=== PATIENT | female | born 1985 | race Caucasian/White ===

== ENCOUNTER 2022-02-04 17:46 | Emergency (ER) | payer OTHER, SELFPAY ==
[2022-02-04 17:55] VITALS: BP 113/68; PULSE 80; RESP 20; TEMP 37.3; O2SAT 98; BMI 24.7
--- NOTE | 2022-02-04 18:16 | EXP.UTC ---
Discharge Plan Disposition Patient Disposition: Home, Self-Care Condition: Good Prescriptions Prescriptions: New methylprednisolone [Medrol (Lamin)] 4 mg tablets,dose pack See Rx Instructions .Route .COMPLEX 6 Days Qty: 21 0RF Rx Instructions: taper pack; amoxicillin-pot clavulanate 875-125 mg Tablet 1 tab PO Q12H Qty: 20 0RF fluticasone propionate [Flonase Allergy Relief] 50 mcg/actuation spray,suspension 1 spray intranasal DAILY Qty: 16 0RF Rx Instructions: administer into each nostril Referrals Follow up/Referrals: Kingston Montiel [Primary Care Provider] - See instructions Activity Restrictions/Add. Instructions Additional Instructions/Restrictions: *Monitor Temp, Over the counter Motrin or Tylenol as directed/as needed Tylenol every 4 hours and Motrin every 6 hours (as long as your family doctor has told you that you can take it) for fever or pain. and straight to ER if unable to lower temp less than 101.0 after medication given *Warm salt water gargles may help to soothe the throat *Throat Lozenges? *Warm fluids like tea with honey may help to soothe the throat? *Sleep elevated *Humidifier/Vaporizer Follow up IMMEDIATELY for new or worsening symptoms or no Noticeable improvement over the next 48-72 hours. 911 for difficulty breathing or swallowing Clinical Impressions Clinical Impression: Sinusitis Instructions Patient Instructions: DI for Sinusitis, Sinusitis Discharge ED Provider: Alexa Feldman [facility] General Stated complaint: daniel, poss sinus inf Mode of Arrival: Ambulatory Source of Information: Patient Limitations: No Limitations Time Seen by Provider: 02/04/22 18:16 Description of Symptoms (Recalled from Triage Doc. by RN): PATIENT C/O SINUS PRESSURE, RUNNY NOSE, WATERY EYES, AND SNEEZING X 3 WEEKS HEENT Symptoms (Recalled from RN notes): Yes Resp Symptoms (Recalled from RN notes): No Skin Symptoms (Recalled from RN notes): No MS Symptoms (Recalled from RN notes): No Functional Status (Recalled from RN notes): WNL History of Present Illness Provider Complaint: Patient states that she has been fighting this for about 3 weeks States that she thought it was allergies States that she has been having sinus pain and pressure, pressure behind her eyes, sneezing and watery Eyes States that she has been taking her allergy medication and sudafed but nothing is helping States that now pressure behind her eyes is worse so today she came in to get checked out Related Data Previous Rx's Medication Instructions Recorded amoxicillin 875 mg-potassium 1 tab PO Q12H #20 tabs 02/04/22 clavulanate 125 mg tablet fluticasone propionate 50 1 spray intranasal DAILY #16 grams 02/04/22 mcg/actuation nasal spray,suspension (Flonase Allergy Relief) methylprednisolone 4 mg tablets in See Rx Instructions .Route 02/04/22 a dose pack (Medrol (Lamin)) .COMPLEX 6 days #21 tabs Allergies Allergy/AdvReac Type Severity Reaction Status Date / Time No Known Allergies Allergy Verified 02/04/22 18:12 Worker's Comp Is this a Worker's Comp case?: No PFSH PFSH Surgical History (Updated 02/04/22 @ 18:11 by Angela Reed RN) History of section History of tonsillectomy History of tubal ligation Social History (Updated 02/04/22 @ 18:12 by Angela Reed RN) Smoking Status: Never smoker alcohol intake: never current occupational status: other Travel in the last 8 weeks: None ROS Obtained: Yes All systems reviewed & no additional complaints except as documented and Yes Systems reviewed as appropriate & no additional complaints except as documented Constitutional Constitutional: Reports system reviewed and no additional complaints, except as documented and Reports as per HPI Eyes Eyes: Reports system reviewed and no additional complaints, except as documented, Reports as per HPI and Reports eye discharge ENT Ears, Nose, Mouth, and Thr
[2022-02-04 18:37] VITALS: BP 113/68; PULSE 80; RESP 20; TEMP 37.3; O2SAT 98
== END 2022-02-04 18:38 | disposition home or self-care (01) ==
PROVIDERS: Emergency Provider Nurse Practitioner; PCP Internal Medicine
DX: J32.9 Chronic sinusitis, unspecified (principal)
CPT/HCPCS: 99212; G0463

== ENCOUNTER 2022-05-01 09:32 | Emergency (ER) | payer OTHER, SELFPAY ==
--- NOTE | 2022-05-01 11:03 | EXP.UTC ---
Discharge Plan Disposition Patient Disposition: Home, Self-Care Condition: Good Prescriptions Prescriptions: New benzonatate [benzonatate] 100 mg capsule 100 mg PO TIDP PRN (Reason: Cough) Qty: 30 0RF oseltamivir [Tamiflu] 75 mg capsule 75 mg PO BID Qty: 10 0RF ondansetron 4 mg Tablet,Disintegrating 4 mg PO Q8H PRN (Reason: Nausea) Qty: 12 0RF No Action methylprednisolone [Medrol (Lamin)] 4 mg tablets,dose pack See Rx Instructions .Route .COMPLEX 6 Days Qty: 21 0RF Rx Instructions: taper pack; amoxicillin-pot clavulanate 875-125 mg Tablet 1 tab PO Q12H Qty: 20 0RF fluticasone propionate [Flonase Allergy Relief] 50 mcg/actuation spray,suspension 1 spray intranasal DAILY Qty: 16 0RF Rx Instructions: administer into each nostril Referrals Follow up/Referrals: Kingston Montiel [Primary Care Provider] - See instructions Activity Restrictions/Add. Instructions Additional Instructions/Restrictions: Drink plenty of fluids. Take tylenol or ibuprofen for pain or fever. Take the medications as directed. Follow up with your regular doctor. GO TO THE ER FOR ANY WORSENING SYMPTOMS Clinical Impressions Clinical Impression: Influenza A Instructions Patient Instructions: DI for Influenza -- Adult, Oseltamivir Discharge ED Provider: Clem Vasquez [facility] General Stated complaint: body aches cough nausea Time Seen by Provider: 05/01/22 11:03 History of Present Illness Provider Complaint: She states that she has had fever, chills, body aches and she has felt bad for the past 2 days. Related Data Previous Rx's Medication Instructions Recorded amoxicillin 875 mg-potassium 1 tab PO Q12H #20 tabs 02/04/22 clavulanate 125 mg tablet fluticasone propionate 50 1 spray intranasal DAILY #16 grams 02/04/22 mcg/actuation nasal spray,suspension (Flonase Allergy Relief) methylprednisolone 4 mg tablets in See Rx Instructions .Route 02/04/22 a dose pack (Medrol (Lamin)) .COMPLEX 6 days #21 tabs benzonatate 100 mg capsule 100 mg PO TIDP PRN Cough #30 caps 05/01/22 ondansetron 4 mg disintegrating 4 mg PO Q8H PRN Nausea #12 tabs 05/01/22 tablet oseltamivir 75 mg capsule (Tamiflu) 75 mg PO BID #10 caps 05/01/22 Allergies Allergy/AdvReac Type Severity Reaction Status Date / Time No Known Allergies Allergy Verified 05/01/22 11:24 [facility] Disclaimer: The information contained in this section may have been updated after the patient was seen, as this information can be updated by other users. Surgical History History of section History of tonsillectomy History of tubal ligation Social History Smoking Status: Never smoker alcohol intake: never current occupational status: other Travel in the last 8 weeks: None ROS Obtained: Yes All systems reviewed & no additional complaints except as documented Constitutional Constitutional: Reports chills and Reports fever(s) Eyes Eyes: Denies eye discharge ENT Ears, Nose, Mouth, and Throat: Reports as per HPI Cardiovascular Cardiovascular: Denies chest pain Respiratory Respiratory: Denies chest congestion and Reports cough Gastrointestinal Gastrointestingal: Reports nausea; Denies abdominal pain, constipation, cramping, diarrhea or vomiting Musculoskeletal Musculoskeletal: Denies arthralgias Integumentary/Breasts Skin/Breast: Denies rash Neurologic Neurologic: Denies paresthesias Physical Exam General General appearance: alert and in no apparent distress Head Head exam: atraumatic, normocephalic and normal inspection Eye Eye exam: Present normal appearance, PERRL and EOMI ENT ENT exam: Present normal exam, normal oropharynx, mucous membranes moist, TM's normal bilaterally and normal external ear exam Neck Neck exam: Present normal inspection, full ROM and trachea midline; Absent meningis
[2022-05-01 11:14] LABS: UTC Influenza A Antigen Positive (Negative); UTC Influenza B Antigen Negative (Negative); UTC Strep Screen (Rapid) Negative (Negative)
[2022-05-01 11:18] VITALS: BP 98/65; PULSE 113; RESP 16; TEMP 37.9; O2SAT 99; BMI 24.2
[2022-05-01 11:53] VITALS: BP 98/65; PULSE 113; RESP 16; TEMP 37.9
== END 2022-05-01 11:56 | disposition home or self-care (01) ==
PROVIDERS: Emergency Provider Nurse Practitioner Family; PCP Internal Medicine
DX: J10.1 Influenza due to other identified influenza virus with other respiratory manifestations (principal); R50.9 Fever, unspecified; R05.9 Cough, unspecified; M79.10 Myalgia, unspecified site; R11.0 Nausea; Z79.51 Long term (current) use of inhaled steroids; Z79.52 Long term (current) use of systemic steroids; Z79.899 Other long term (current) drug therapy
CPT/HCPCS: 87804; 87880; 99213; G0463

== ENCOUNTER 2022-10-19 17:42 | Emergency (ER) | payer OTHER, SELFPAY ==
[2022-10-19 18:40] VITALS: BP 133/68; PULSE 99; RESP 18; TEMP 36.9; O2SAT 100; BMI 23.2
--- NOTE | 2022-10-19 19:10 | EXP.UTC ---
Discharge Plan Disposition Patient Disposition: Home, Self-Care Condition: Good Prescriptions Prescriptions: New triamcinolone acetonide 0.1 % ointment 1 applic topical TID Qty: 30 0RF Rx Instructions: apply to rash on ankle as directed No Action folic acid 1 mg tablet 2 mg PO DAILY Label Comments: TAKE 2 TABLETS BY MOUTH ONCE DAILY metformin 500 mg tablet extended release 24 hr 1,500 mg PO DAILY Label Comments: TAKE 3 TABLETS BY MOUTH ONCE DAILY WITH EVENING MEAL Referrals Follow up/Referrals: Kingston Montiel [Primary Care Provider] - See instructions Activity Restrictions/Add. Instructions Additional Instructions/Restrictions: Oatmeal baths may help with itching and to dry the rash Over the counter Calamine lotion may help to dry the rash Benadryl may help with itching Use topical steriod as prescribed Clinical Impressions Clinical Impression: Poison [place]y dermatitis Instructions Patient Instructions: Summertime Rashes: Poison [place], [place], and [place], Poison [place], Poison [place], Poison [place], DI for Poison [place] Allergy Discharge ED Provider: Alexa Feldman [facility] HPI General Stated complaint: rash Mode of Arrival: Ambulatory Source of Information: Patient Limitations: No Limitations Time Seen by Provider: 10/19/22 19:10 Description of Symptoms (Recalled from Triage Doc. by RN): PATIENT C/O ITCHY, RAISED RASH TO LATERAL LEFT ANKLE SINCE TUESDAY HEENT Symptoms (Recalled from RN notes): No Resp Symptoms (Recalled from RN notes): No Skin Symptoms (Recalled from RN notes): Yes MS Symptoms (Recalled from RN notes): No Functional Status (Recalled from RN notes): WNL History of Present Illness Provider Complaint: Patient states that she was pulling some weeds last week and over the weekend she noticed a rash on her left ankle that looked fluid filled and itchy States that she wasnt sure what it may be but it hasnt got any better so today she came in to get it checked out Related Data Home Medications Medication Instructions Recorded Confirmed folic acid 1 mg tablet 2 mg PO DAILY Supplement 10/19/22 10/19/22 metformin 500 mg tablet,extended 1,500 mg PO DAILY . 10/19/22 10/19/22 release 24 hr Previous Rx's Medication Instructions Recorded triamcinolone acetonide 0.1 % 1 applic topical TID #30 grams 10/19/22 topical ointment Allergies Allergy/AdvReac Type Severity Reaction Status Date / Time No Known Allergies Allergy Verified 05/01/22 11:24 Worker's Comp Is this a Worker's Comp case?: No [facility] Disclaimer: The information contained in this section may have been updated after the patient was seen, as this information can be updated by other users. Surgical History History of section History of tonsillectomy History of tubal ligation Social History Smoking Status: Never smoker alcohol intake: never current occupational status: other Travel in the last 8 weeks: None ROS Obtained: Yes All systems reviewed & no additional complaints except as documented and Yes Systems reviewed as appropriate & no additional complaints except as documented Constitutional Constitutional: Reports system reviewed and no additional complaints, except as documented and Reports as per HPI ENT Ears, Nose, Mouth, and Throat: Reports system reviewed and no additional complaints, except as documented and Reports as per HPI Cardiovascular Cardiovascular: Reports system reviewed and no additional complaints, except as documented and Reports as per HPI Respiratory Respiratory: Reports system reviewed and no additional complaints, except as documented and Reports as per HPI Gastrointestinal Gastrointestingal: Reports system reviewed and no additional complaints, except as documented and as per HPI Musculoskeletal Musculoskeletal: Reports system reviewed and no addition
[2022-10-19 19:20] VITALS: BP 133/68; PULSE 99; RESP 18; TEMP 36.9; O2SAT 100
== END 2022-10-19 19:25 | disposition home or self-care (01) ==
PROVIDERS: Emergency Provider Nurse Practitioner; PCP Internal Medicine
DX: L23.7 Allergic contact dermatitis due to plants, except food (principal); W60.XXXA Contact with nonvenomous plant thorns and spines and sharp leaves, initial encounter
CPT/HCPCS: 99212; 99214; G0463

== ENCOUNTER 2024-11-23 20:50 | Emergency (ER) | payer BC, SELFPAY ==
--- OUTSIDE RECORDS SUMMARY | 2024-11-23 21:04 | XMS_ITS | Continuity of Care Document ---
Author Organization [facility]. If a dditional information is needed, contact Health Information Management at [phone] [place] [address] Phone Care Team Providers Care Information Clerk [employer] Name Role Phone Unavailable Unavailable Unavailable Unavailable Unavailable Unavailable Unavailable Unavailable Unavailable Unavailable Unavailable Unavailable Problems Foot pain Onset:27-Oct-2019 [id number] Left ankle pain Onset:27-Oct-2019 [id number] Allergies and Adverse Reactions acetaminophen(Allergy) Onset: 27-Oct-2019 Reaction:hives Sulfamethoxazole(Allergy) Onset: 27-Oct-2019 Reaction:hives trimethoprim(Allergy) Onset: 27-Oct-2019 Reaction:hives tramadol(Allergy) Onset: 27-Oct-2019 Reaction:hives Social History Smoking Status Never smoked tobacco Recorded: 27-Oct-2019
[2024-11-23 21:05] VITALS: BP 127/88; PULSE 80; RESP 20; TEMP 36.9; O2SAT 100; BMI 25.8
--- OUTSIDE RECORDS SUMMARY | 2024-11-23 21:05 | XMS_ITS | Clinical Summary ---
Author Organization [employer] Address [address] [place] [address] Care Team Providers Care Tool Profiling Machine Set Up Operator Name Role Phone [facility], Provider Not In The System Primary Care Provider Unavailable Allergies No known active allergies Medications metFORMIN (GLUCOPHAGE) 500 MG tablet Take 3 tablets (1,500 mg total) by mouth daily. Active folic acid (FOLVITE) 1 MG tablet Take 2 tablets (2 mg total) by mouth daily. Active vitamin w/calcium-iron- folate ( PLUS) 27 mg iron- 1 mg Tab Take 1 tablet by mouth daily. Active Active Problems Problem Noted Date Diagnosed Date Uterine rupture during labor 01/18/2024 Previous section 01/16/2024 Dehiscence of old uterine sc ar with extension before onset of labor during third trimester of 01/16/2024 Endometriosis of pelvic peritoneum 08/05/2022 Menorrhagia 08/05/2022 Severe dysmenorrhea 08/05/2022 Pelvic pain in female 08/05/2022 Dyspareunia due to medical condition in female 0 08/05/2022 PCOS (polycystic ovarian syndrome) Endometriosis Family History Medical History Relation Name Comments Breast cancer Maternal Grandmother Cervical cancer Paternal Aunt Relation Name Status Comments Maternal Grandmother Paternal Aunt Social History Tobacco Use Types Packs/Day Years Used Date Smoking Tobacco: Never Assessed Passive Smoke Exposure: Never Smokeless Tobacco: Never Tobacco Cessation:Counseling Given: Not Answered Comments:quit 2017 Alcohol Use Standard Drinks/Week Comments Not Currently 0 (1 standard drink = 0.6 oz pur e alcohol) [place] Union Depression Scale Answer Date Recorded Union Depression Screening Total Score 4 01/17/2024 Last EPDS Self Harm Result Not on file 01/16 Utilities Answer Date Recorded In the past 12 months, has t he electric, gas, oil, or water company threatened to shut off services in your home? No 01/16/2024 Interpersonal Safety Answer Date Record ed How often does anyone, travis maki family and friends, physically hurt you? Never 01/16/2024 How often does anyone, travis maki family and friends, insult or talk down to you? Never 01/16/2024 How often does anyone, travis maki family and friends, threaten you with harm? Never 01/16/2024 How often does anyone, travis maki family and friends, scream or curse at you? Never 01/16/2024 Housing Stability Answer Date Recorded What is your living situation today? I have a [facility] place to live 01/16/[address] you li ve. Do you have problems with any of the following? None of the above 01/16/2024 Food Insecurity Answer Date Recorded Within the past 12 months, y ou worried that your food would run out before you got money to buy more. Never true 01/16/2024 Within the past 12 months, t he food you bought just didn't last and you didn't have money to get more. Never true 01/16/2024 Transportation Needs Answer Date Record ed In the past 12 months, has l ack of reliable transportation kept you from medical appointments, meetings, work or from getting things needed for daily living? No 01/16/2024 Financial Resource Strain Answer Date R ecorded How hard is it for you to pa y for the very basics like food, housing, medical care, and heating? Would you say it is: Not hard at all 01/16/2024 Employment Answer Date Recorded Do you want help finding or keeping work or a job? I do not need or want help 01/16/2024 Family and Community Support Answer Omkar e Recorded If for any reason you need h elp with day-to-day activities such as bathing, preparing meals, shopping, managing finances, etc., do you get the help you need? I don't need any help 01/16/2024 Feeling Lonely or Isolated 0 01/15 Educational Attainment Answer Date Atif rded Do you speak a language other than [place] at [facility]? No 01/16/2024 Do you want help with school or training? For example, starting or completing job training or getting a high school diploma, GED or equivalent. No 01/16/2024 Physical Activity Answer Date Recorded Number of minutes of exercise per week 0 01/16/2024 Alcohol Use Answer Date Recorded 5 or More Drinks Per Day Past 12 Months 0 04/09/2024 Depression Answer Date Recorded Calculation of above two rows 0 Stress Answer Date Recorded Stress means a situation in which a person feels tense, restless, nervous, or anxious, or is unable to sleep at night because his or her mind is troubled all the time. Do you feel this kind of stress these days? Not at all 01/16/2024 Disabilities Answer Date Recorded Because of a physical, menta l, or emotional condition, do you have serious difficulty concentrating, remembering, or making decisions? (5 years or older) No 01/16/2024 Because of a physical, menta l, or emotional condition, do you have difficulty doing errands alone such as visiting a doctor's office or shopping? (15 years or older) No 01/16/2024 Substance Use Answer Date Recorded How many times in the past y ear have you used prescription drugs for non-medical reasons? Never 01/16/2024 How many times in the past year have you used [place] legal drugs? Never 01/16/2024 Comments Unknown Sex and Gender Information Value Date Recorded Sex Assigned at Not on file Legal Sex Female 1:14 PM CDT Gender Identity Not on file Sexual Orientation Not on file Last Filed Vital Signs Vital Sign Reading Time Taken Comments Blood Pressure 110/53 01/20/2024 6:15 PM EDT Pulse 88 01/19/2024 8:00 AM EDT Temperature 36.6 C (97.8 F) 01/19/2024 8:00 AM EDT Respiratory Rate 16 01/19/2024 8:00 AM EDT Oxygen Saturation 96% 01/16/2024 8:45 PM EDT Inhaled Oxygen Concentration - - Weight 88.2 kg (194 lb 6.4 oz) 01/16/2024 4:50 P M EDT Height 167.6 cm (5' 6 ) 01/16/2024 4:50 PM EDT Body Mass Index 31.38 01/16/2024 4:50 PM EDT Plan of Treatment Health Maintenance Due Date Last Done Comments HIV Screening 12/29/2002 Hepatitis C Screening 12/29/2005 DTAP/TDAP/TD VACCINES (1 - Tdap) 12/29/2006 Lipid Panel 2007 Pap Smear 12/29/2008 COVID-19 VACCINE (3 - 2023-2 5 season) 2024 09/19/2020, 08/19/2020 Depression Screening (12+) 01/16/2025 01/17/2024 Tobacco Cessation Counseling and Screening (12+) 01/16/2025 01/17/2024 Influenza Vaccine (Season Ended) 2025 01/29/2020 Pneumococcal Vaccine: 0-49 Years Aged Out No longer eligible b ased on patient's age to complete this topic Medical Devices Implanted Type Area Drop Hammer Mechanic Device Identifier Shelf Expiration Date Model / Serial / Lot [employer] Prime 3x4 Cm [id number] - [id number] Implanted:Qty : 1 on 08/06/2022 by Aidee Acuña MD at [facility] IMPLANTS N/A: Pelvis [employer] 03/31/2024 [id number] / [id number] / [id number] Insurance [employer] BLUE [employer]OSS/BLUE [employer]IELD Advance Directives For more information, please contact: [phone] * Full Code (Latest Code Status on File) Date Activated Date Inactivated Comments 01/16/2024 3:21 PM 01/16/2024 9:45 PM * Full Code Date Activated Date Inactivated Comments 08/06/2022 6:15 AM 10/02/2022 11:50 AM * Full Code Date Activated Date Inactivated Comments 08/06/2022 5:16 AM 08/06/2022 6:15 AM Care Teams Tool Profiling Machine Set Up Operator Relationship Specialty Start Date End Date [facility], Provider Not In The System, [place] [address] PCP - General 01/16/24
--- OUTSIDE RECORDS SUMMARY | 2024-11-23 21:05 | XMS_ITS | Data Portability ---
Author Organization [facility] telehealth Address [address] [place] [address] Assessment Encounter Date Assessment Date Assessment LastModified by Organization Details LastModified Time 01/23/2024 01/23/2024 38 yo F here today for visit. WNWD female in NAD. Pt had a repeat section of a healthy baby boy (Hiram) with Dr. Acuña! Pt is and bottle feeding. She reports mood is stable, has good support from family. Denies SI / HI. Discussed control with pt, she is considering Mirena IUD, will place order for Slynd and discuss IUD at visit.Pt appears well overall on physical examination. Incisions are well healed. No erythema, drainage or separation noted along incision. Reviewed care with patient. Patient will call if there is severe vaginal bleeding, dizziness, fever and/or new or worsening abdominal pain. She will RTC for visit or PRN. Pleasant mood. [email or web address] Not available 01/23/2024 18:35:15 02/27/2024 02/27/2024 38 y/o presents for 6 week post- visit. She had a repeat of a healthy baby boy (Hiram) with Dr. Acuña. Discussed BC options. Patient is interested in IUD for BC; patient will confir with her partner and return to our office for IUD insertion. She breastfed for the first 3 weeks and has not had a period yet. Physical exam reveals galactocele on left breast. incision appears healthy. Speculum exam reveals some minor bleeding, vaginal culture collected. Silver nitrate applied for hemostasis. Breast ULS performed; cyst of left breast measuring 15.61 mm at 3 o'clock position. Removed with puncture aspiration and confirmed with ULS. [email or web address] Not available 02/27/2024 10:56:02 04/05/2024 04/05/2024 38 yo F presents for IUS insertion. Pre IUD ULS reveals a thickened endometrium. Both the ovaries are normal in size, location, and appearance. No tenderness is noted. Endometrial biopsy was done from thickened endometrium and biopsy will be sent to pathology. After having reviewed the contraindication s, side effects, and risks and benefits of all major options for reversible contraception, the patient chose the Mirena IUD for contraception. We discussed the risks of insertion, pelvic infection, and the possibility of failure. Patient stated that she has a good understanding of all we discussed, and all questions were answered regarding IUD use. Patient signed consent form. Pelvic examination was normal. Pap smear is current. Urine test negative. With the patient in the dorsal lithotomy position, a speculum was placed in the vagina. The cervix and vagina were prepped with Betadine, and a paracervical block of 2mL lidocaine 2% with epinephrine administered. The anterior lip of the cervix was stabilized with a tenaculum and the uterus was sounded adequately. The Mirena IUD was then placed in the endometrial cavity as directed without complications. The strings were trimmed to approximately to 2 cm. Hemostasis was achieved by silver nitrate. ULS revealed good placement. Patient tolerated procedure well. Pt will RTC for WWE or sooner if needed. [email or web address] Not available 04/05/2024 15:32:29 10/29/2024 10/29/2024 38 yo F presents for an annual exam. She states that she would like to be put back on Metformin. Pt states since she had her Mirena put in she doesn't have abnormal cycles, but she does have some spotting. She reports low libido, abnormal hair loss and fatigue. Pt has been dx with a multinodular goiter. Pap was collected from the cervix. Cervicitis was present and treated with silver nitrate. BV panel will also be done. It is suspected that pts symptoms could be due to DHEA and testosterone levels being low. Annual and hormone BW will be done today. Once HRT levels have been reviewed HRT dosage will be designed and sent to [facility]. She will come into the office at least 2 weeks after started HRT transdermal cream for HRT blood work. Metformin will be ordered. She will RTC for WWE or sooner if needed. [email or web address] Not available 10/29/2024 11:00:07 Plan of Treatment Reminders Order Date Submit Date Provider Last Modified By Organization Details Last Modified Time Details Appointments None recorded. Lab pap, LB 2024 025 [facility]), [address] [place] [address], [address], 5 16:12:52 HbA1c (hemoglobi n A1c), blood 2024 025 [facility] ([facility]), [address] [place] [address], [address], 5 08:17:12 CMP, serum or plasma 2024 025 [facility] ([facility]), [address] [place] [address], [address], 5 08:17:09 CBC w/ auto diff 2024 025 [facility] ([facility]), [address] [place] [address], [address], 5 08:17:08 TSH, serum or plasma 2024 025 [facility] ([facility]), [address] [place] [address], [address], 5 08:17:13 vitamin B12, serum 2024 025 [facility] ([facility]), [address] [place] [address], [address], 5 08:17:12 vitamin D, 25-hydroxy , total, serum 2024 025 [facility] [address] [place] [address], [address], 5 08:17:09 bacterial vaginosis + vaginitis panel, vaginal 2024 025 [facility]), [address] [place] [address], [address], 5 16:12:53 testostero ne, total, serum 2024 025 [facility] ([facility]), [address] [place] [address], [address], 5 08:17:10 dhea-sulfa te, serum 2024 025 [facility] ([facility]), [address] [place] [address], [address], 5 08:17:14 estradiol, serum 2024 025 [facility] ([facility]), [address] [place] [address], [address], 5 08:17:11 lh + FSH, serum 2024 025 [facility] ([facility]), [address] [place] [address], [address], 5 08:17:07 Referral None recorded. Procedures None recorded. Surgeries None recorded. Imaging None recorded. Medication Orders metformin ER 500 mg tablet,ext ended release 24 hr 2024 025 [facility], [address] [place] [address], [address], 5 11:07:57 Cipro [address] [id number], [address] [place], [address], 5 09:50:24 Slynd 4 mg (28) tablet [address] [id number], [address] [place], [address], 4 09:25:47 Patient TargetsNo targets recorded. Patient InstructionsNo instructions recorded. Reason for Referral None Reported. Results Created Date Observation Date Name Description Value Unit Range Abnormal Flag Note LastModifiedBy Organization Detail LastModifiedTime 12/30/1912/30/2023 urina lysis , dipst ick Leukocytes negati ve Not Available MD [address]aciel[address], [place], [address], 12/29/2023 12:01:11 12/30/19 24 2023 urina lysis , dipst ick Protein negati ve Not Available MD [address]iela [address], [place], [address], 12/29/2023 12:01:11 12/30/19 24 2023 urina lysis , dipst ick Blood negati ve Not Available MD [address]iela [address], [place], [address], 12/29/2023 12:01:11 12/30/19 24 2023 urina lysis , dipst ick Nitrate negati ve Not Available MD [address]aciela [address], [place], [address], 12/29/2023 12:01:11 12/30/19 24 2023 urina lysis , dipst ick Glucose negati ve Not Available MD Graciela Ramach[address]ran [address], [place], [address], 12/29/2023 12:01:11 10/30/19 25 10/31/2024 PAP TEST THIN PREP Pap test thin prep NEGATI VE FOR INTRAE PITHEL IAL LESION OR MALIGN SRAVANI normal ACCES DANISHA #: [id number] Sourc e: Cervi rufina/E ndoce rvica l LMP: Unkno wn Date Taken : 10/29 Speci men Type: ThinP rep Vial Date Repor jennifer: 025 Clini rufina Data: Cytot ech: Payton Mart r, CT( CP) Date Repor jennifer: 025 Speci men Adequ acy: Satis facto ry for evalu ation Endoc ervic al/tr ansfo rmati on zone compo nent prese nt Gener al Categ oriza tion: NEGAT SURENDRA FOR INTRA EPITH ELIAL LESIO N OR MALIG CASPER The follo wing tests have been order ed as reque sted and a separ ate repor t will be issue d: Vagin itis Panel , HPV High Risk Scree n (TMA) This speci men has been maty zed by the ThinP rep Imagi ng Syste m, an inter activ e compu ter syste m which shivam ts the lab in the scree chepe of ThinP rep Pap Test slide s. Follo wing imagi ng, the slide was revie wed by a Cytot echno logis t and/o r Patho logis t. Cervi rufina cytol ogy is a scree chepe test prima rily for squam ous cance rs and precu rsors and has assoc iated false -nega tive and false -posi tive resul ts. New techn ologi es such as liqui d-bas ed prepa ratio ns may decre ase but will not elimi zenia all false -nega tive resul ts. Regul ar sampl ing and follo w-up of unexp freddie d clini rufina signs and sympt oms are recom paulino d to minim ize false negat surendra resul ts. End of Repor t Techn ical servi jason provi ded by [facility], [facility], d/b/a [facility], [address] [place] [address] Rita Gallegos. Kimberly adames MD, [facility]. Case revie wed and diagn osis rende red at [facility], d/b/a [facility], [address] [place] [address] Rita adames MD, [facility]. CONFI DENTI AL Not Available [facility]) [address], [place], [address], 10/31/2024 16:12:52 10/30/19 25 10/31/2024 VAGIN ITIS PANEL neeta sp. NOT DETECT ED normal Trich omona s vagin di: DNA testi ng perfo rmed by Trans cript ion Media jennifer Ampli ficat ion (TMA) These resul ts shoul d be inter prete d in light of all clini rufina and labor atory findi ngs. This assay is highl y accur ate, but rare false posit surendra and negat surendra resul ts may occur . Posit surendra resul ts in low preva lence popul ation s may requi re re-ev aluat ion. A negat surendra resul t does not precl ude a possi ble infec tion due to a speci men inade quacy or sampl ing error . Test perfo rmed by [facility], d/b/a [facility], [address], [place] [address] , Cruz Guadarrama ra, DO, [facility]. Dago singh a vagin Miguel sevillai da speci es: Genom ic DNA is isola jennifer from patie nt speci mens by stand bhavesh labor atory techn iques and maty zed using custo m OpenA rray plate s, perfo rmed on the Erenisi o [employer] Flex Real Time PCR syste m. A posit surendra resul t is provi ded for patho genic bacte alice, virus and/o r funga l speci es based on detec tion of ampli ficat ion produ cts. Xenia l vagin al ronak resul ts of Xenia l or Wayne jennifer are deter mined by calcu latin g the ratio of the organ ism to the total bacte alice prese nt in the speci men, and kimo ring that ratio to a PathG roup patie nt popul ation . Overa ll resul ts of Xenia l, Borde rline and Abnor mal are deter mined using a proba bilit y model which was devel oped by an exten sive maty sis and integ ratio n of clini rufina thres holds for marke r organ isms on a large set of sympt omati c & asymp tomat ic speci mens. Patie nt popul ation s with diffe rent demog raphi cs from the PathG roup model popul ation may have diffe rent indic ator organ isms with diffe rent relat surendra ratio s, which would influ ence the final resul ts. Resul ts shoul d be inter prete d in the kim xt of all clini rufina and labor atory findi ngs. The test was devel oped and its perfo rmanc e franklin cteri stics deter mined by [employer] [facility], [employer] d/b/a PathRashaun roubettina. It has not been clear ed or appro chandler by the U.S. Food and Drug Admin istra tion. The FDA has deter mined that such clear ance or appro debbie is not neces nicola. Perti nent refer ence inter vals are avail able from the [facility] atory on reque st. Test( s) perfo rmed by [employer] [facility], d/b/a [facility], [address], [place] [address] , Cruz Guadarrama ra, DO, Labor atory Direc tor. Not Available [facility] ([facility]) [address], [place], [address], 10/31/2024 16:12:53 10/30/19 25 10/31/2024 VAGIN ITIS PANEL gardnerella vaginalis NOT DETECT ED normal Trich omona s vagin di: DNA testi ng perfo rmed by Trans cript ion Media jennifer Ampli ficat ion (TMA) These resul ts shoul d be inter prete d in light of all clini rufina and labor atory findi ngs. This assay is highl y accur ate, but rare false posit surendra and negat surendra resul ts may occur . Posit surendra resul ts in low preva lence popul ation s may requi re re-ev aluat ion. A negat surendra resul t does not precl ude a possi ble infec tion due to a speci men inade quacy or sampl ing error . Test perfo rmed by [facility], d/b/a [facility], [address], [place] [address] , Cruz Guadarrama ra, DO, Labor atory Direc tor. Gardn erell a vagin di, Ольга da speci es: Genom ic DNA is isola jennifer from patie nt speci mens by stand bhavesh labor atory techn iques and maty zed using custo m OpenA rray plate s, perfo rmed on the Quant [employer]i o 12K Flex Real Time PCR syste m. A posit surendra resul t is provi ded for patho genic bacte alice, virus and/o r funga l speci es based on detec tion of ampli ficat ion produ cts. Xenia l vagin al ronak resul ts of Xenia l or Wayne jennifer are deter mined by calcu latin g the ratio of the organ ism to the total bacte alice prese nt in the speci men, and kimo ring that ratio to a PathG roup patie nt popul ation . Overa ll resul ts of Xenia l, Borde rline and Abnor mal are deter mined using a proba bilit y model which was devel oped by an exten sive maty sis and integ ratio n of clini rufina thres holds for marke r organ isms on a large set of sympt omati c & asymp tomat ic speci mens. Patie nt popul ation s with diffe rent demog raphi cs from the Path rou model popul ation may have diffe rent indic ator organ isms with diffe rent relat surendra ratio s, which would influ ence the final resul ts. Resul ts shoul d be inter prete d in the kim xt of all clini rufina and labor atory findi ngs. The test was devel oped and its perfo rmanc e franklin cteri stics deter mined by [employer] [facility] logis [employer], [employer] d/b/a [employer]. It has not been clear ed or appro chandler by the U.S. Food and Drug Admin istra tion. The FDA has deter mined that such clear ance or appro debbie is not neces nicola. Perti nent refer ence inter vals are avail able from the [facility] ator on reque st. Test( s) perfo rmed by [employer] [facility] logis [employer], [employer], [facility]/b/a [facility], [address] [place] [address] , Cruz Guadarrama ra, DO, Labor ator Dire tor. Not Available [facility] ([facility]) [address], [place], [address], 10/31/2024 16:12:53 10/30/19 25 10/31/2024 VAGIN ITIS PANEL trichomonas vaginalis, aptima (panther) NOT DETECT ED normal Trich omona s vagin di: DNA testi ng perfo rmed by Trans cript ion Media jennifer Ampli ficat ion (TMA) These resul ts shoul d be inter prete d in light of all clini rufina and labor atory findi ngs. This assay is highl y accur ate, but rare false posit surendra and negat surendra resul ts may occur . Posit surendra resul ts in low preva lence popul ation s may requi re re-ev aluat ion. A negat surendra resul t does not precl ude a possi ble infec tion due to a speci men inade quacy or sampl ing error . Test perfo rmed by [facility], d/b/a PathG roubettina, [address], [facility] [place] [address] , Cruz Guadarrama ra, DO, Labor atory Direc tor. Gardn erell a vagin di, Ольга da speci es: Genom ic DNA is isola jennifer from patie nt speci mens by stand bhavesh labor atory techn iques and maty zed using custo m OpenA rray plate s, perfo rmed on the Erenisi o 12K Flex Real Time PCR syste m. A posit surendra resul t is provi ded for patho genic bacte alice, virus and/o r funga l speci es based on detec tion of ampli ficat ion produ cts. Xenia l vagin al ronak resul ts of Xenia l or Wayne jennifer are deter mined by calcu latin g the ratio of the organ ism to the total bacte alice prese nt in the speci men, and kimo ring that ratio to a PathG roup patie nt popul ation . Overa ll resul ts of Xenia l, Borde rline and Abnor mal are deter mined using a proba bilit y model which was devel oped by an exten sive maty sis and integ ratio n of clini rufina thres holds for marke r organ isms on a large set of sympt omati c & asymp tomat ic speci mens. Patie nt popul ation s with diffe rent demog raphi cs from the PathG roup model popul ation may have diffe rent indic ator organ isms with diffe rent relat surendra ratio s, which would influ ence the final resul ts. Resul ts shoul d be inter prete d in the kim xt of all clini rufina and labor atory findi ngs. The test was devel oped and its perfo rmanc e franklin cteri stics deter mined by [facility] d/b/a [facility] roup. It has not been clear ed or appro chandler by the U.S. Food and Drug Admin istra tion. The FDA has deter mined that such clear ance or appro debbie is not neces nicola. Perti nent refer ence inter vals are avail able from the labor atory on reque st. Test( s) perfo rmed by [facility] log[facility] [employer], d/b/a [facility], [address] [place] [address] , Cruz Guadarrama ra, DO, Labor atory Dire tor. Not Available [facility]) [address], [place], [address], 10/31/2024 16:12:53 10/30/19 25 10/31/2024 HPV HIGH RISK SCREE N (TMA) HPV high risk NOT DETECT ED normal The human papil lomav irus (HPV) High Risk Scree n is an FDA-a pprov ed in-vi tro ampli fied nucle ic acid test for the quali tativ e detec tion of E6/E7 viral mRNA. Resul ts shoul d be corre lated with patie nt prese ntati on, histo ry, cervi rufina cytol ogy and other clini rufina and labor atory findi ngs. See https ://AcesoBee/s ites/ defgaby lt/fi les/2 018-0 3/AW- 84013 _002_ 01.pd f for furjb er infor matio n. Test perfo rmed by [facility] [employer] d/b/a [facility], [address], [place] [address] , Cruz Guadarrama ra, DO, Labor atory Dire tor, CLIA# [id number] Not Available [facility] ([facility]) [address], [place], [address], 10/31/2024 16:12:54 10/30/19 25 10/30/2024 FSH AND LH luteinizing hormone 4.10 mIU/m L LH Refer ence Range Men: 1.7 - 8.6 Women : Folli cular phase 2.4 - 12.6 Ovula tion phase 14.0 - 95.6 Lutea l phase 1.0 - 11.4 Postm enopa use 7.7 - 58.5 Not Available [facility]) [address] [place] [address] [address], [place], [address], 11/01/2024 08:17:07 10/30/19 25 10/30/2024 FSH AND LH FSH 2.00 mIU/m L FSH Refer ence Range Men: 1.5 - 12.4 Women : Folli cular phase 3.5 - 12.5 Ovula tion phase 4.7 - 21.5 Lutea l phase 1.7 - 7.7 Postm enopa use 25.8 - 134.8 Not Available [facility] ([facility]) [address] [place] [address] [address], [place], [address], 11/01/2024 08:17:07 10/30/19 25 10/30/2024 CBC WITH PLATE LET AND DIFFE RENTI AL WBC 4.2 K/uL 3.8-11 .5 Not Available [facility] ([facility]) [address] [place] [address] [address], [place], [address], 11/01/2024 08:17:08 10/30/19 25 10/30/2024 CBC WITH PLATE LET AND DIFFE RENTI AL red blood cell count (RBC) 4.44 M/mm3 3.60-5 .30 Not Available [facility]) [address] [place] [address] [address], [place], [address], 11/01/2024 08:17:08 10/30/19 25 10/30/2024 CBC WITH PLATE LET AND DIFFE RENTI AL hemoglobin (HGB) 13.9 gm/dL 11.5-1 5.5 Not Available [facility] ([facility]) [address] [place] [address] [address], [place], [address], 11/01/2024 08:17:08 10/30/19 25 10/30/2024 CBC WITH PLATE LET AND DIFFE RENTI AL hematocrit (HCT) 42.1 % 35.2-4 6.4 Not Available [facility] ([facility]) [address] [place] [address] [address], [place], [address], 11/01/2024 08:17:08 10/30/19 25 10/30/2024 CBC WITH PLATE LET AND DIFFE RENTI AL MCV 94.8 fL 79.0-9 9.0 Not Available [facility] ([facility]) [address] [place] [address] [address], [place], [address], 11/01/2024 08:17:08 10/30/19 25 10/30/2024 CBC WITH PLATE LET AND DIFFE RENTI AL MCH 31.3 pg 26.9-3 5.0 Not Available [facility] ([facility]) [address] [place] [address] [address], [place], [address], 11/01/2024 08:17:08 10/30/19 25 10/30/2024 CBC WITH PLATE LET AND DIFFE RENTI AL MCHC 33.0 g/dL 30.4-3 4.8 Not Available [facility] ([facility]) [address] [place] [address] [address], [place], [address], 11/01/2024 08:17:08 10/30/19 25 10/30/2024 CBC WITH PLATE LET AND DIFFE RENTI AL RDW 40.8 fL 38.6-5 3.8 Not Available [facility] ([facility]) [address] [place] [address] [address], [place], [address], 11/01/2024 08:17:08 10/30/19 25 10/30/2024 CBC WITH PLATE LET AND DIFFE RENTI AL platelet count 281 K/cum m 137-39 7 Not Available [facility] [address] [place] [address] [address], [place], [address], 11/01/2024 08:17:08 10/30/19 25 10/30/2024 CBC WITH PLATE LET AND DIFFE RENTI AL neutrophils automated 48.8 % 41.0-7 7.0 Not Available [facility] [address] [place] [address] [address], [place], [address], 11/01/2024 08:17:08 10/30/19 25 10/30/2024 CBC WITH PLATE LET AND DIFFE RENTI AL lymphocytes automated 36.9 % 14.0-4 8.0 Not Available [facility]) [address] [place] [address] [address], [place], [address], 11/01/2024 08:17:08 10/30/19 25 10/30/2024 CBC WITH PLATE LET AND DIFFE RENTI AL monocytes automated 11.7 % 4.0-13 .0 Not Available [facility]) [address] [place] [address] [address], [place], [address], 11/01/2024 08:17:08 10/30/19 25 10/30/2024 CBC WITH PLATE LET AND DIFFE RENTI AL eosinophils automated 1.9 % 0.0-8. 0 Not Available [facility]) [address] [place] [address] [address], [place], [address], 11/01/2024 08:17:08 10/30/19 25 10/30/2024 CBC WITH PLATE LET AND DIFFE RENTI AL basophils automated 0.5 % 0.0-1. 5 Not Available [facility] ([facility]) [address] [place] [address], [place], [address], 11/01/2024 08:17:08 10/30/19 25 10/30/2024 CBC WITH PLATE LET AND DIFFE RENTI AL immature granulocyte automated 0.2 % 0.0-1. 0 Not Available [facility] ([facility]) [address] [place] [address] Dr Kaiser, [place], [address], 11/01/2024 08:17:08 10/30/19 25 10/30/2024 COMPR EHENS SURENDRA METAB OLIC PANEL (CMP) sodium 141 mmol/ L 135-14 5 Not Available [facility] ([facility]) [address] [place] [address] Dr Kaiser, [place], [address], 11/01/2024 08:17:09 10/30/19 25 10/30/2024 COMPR EHENS SURENDRA METAB OLIC PANEL (CMP) potassium 4.6 mmol/ L 3.5-5. 3 Not Available [facility] ([facility]) [address] [place] [address] Dr Kaiser, [place], [address], 11/01/2024 08:17:09 10/30/19 25 10/30/2024 COMPR EHENS SURENDRA METAB OLIC PANEL (CMP) chloride 104 mmol/ L 97-108 Not Available [facility] ([facility]) [address] [place] [address] Dr Kaiser, [place], [address], 11/01/2024 08:17:09 10/30/19 25 10/30/2024 COMPR EHENS SURENDRA METAB OLIC PANEL (CMP) CO2 28 mmol/ L 22-32 Not Available [facility] ([facility]) [address] [place] [address] Dr Kaiser, [place], [address], 11/01/2024 08:17:09 10/30/19 25 10/30/2024 COMPR EHENS SURENDRA METAB OLIC PANEL (CMP) glucose 86 mg/dL 65-99 Not Available [facility] ([facility]) [address] [place] [address] Dr Kaiser, [place], [address], 11/01/2024 08:17:09 10/30/19 25 10/30/2024 COMPR EHENS SURENDRA METAB OLIC PANEL (CMP) BUN 5 mg/dL 6-20 low Not Available [facility] ([facility]) [address] [place] [address] Dr Kaiser, [place], [address], 11/01/2024 08:17:09 10/30/19 25 10/30/2024 COMPR EHENS SURENDRA METAB OLIC PANEL (CMP) creatinine 0.69 mg/dL 0.50-1 .00 Not Available [facility] ([facility]) [address] [place] [address] Dr Kaiser, [place], [address], 11/01/2024 08:17:09 10/30/19 25 10/30/2024 COMPR EHENS SURENDRA METAB OLIC PANEL (CMP) calcium 9.4 mg/dL 8.6-10 .4 Not Available [facility] ([facility]) [address] [place] [address] Dr Kaiser, [place], [address], 11/01/2024 08:17:09 10/30/19 25 10/30/2024 COMPR EHENS SURENDRA METAB OLIC PANEL (CMP) eGFR by creatinine 115 mL/mi n/1.7 3m2 >59 Not Available [facility] ([facility]) [address] [place] [address] Dr Kaiser, [place], [address], 11/01/2024 08:17:09 10/30/19 25 10/30/2024 COMPR EHENS SURENDRA METAB OLIC PANEL (CMP) protein 7.1 g/dL 6.0-8. 3 Not Available [facility] ([facility]) [address] [place] [address] Dr Kaiser, [place], [address], 11/01/2024 08:17:09 10/30/19 25 10/30/2024 COMPR EHENS SURENDRA METAB OLIC PANEL (CMP) albumin 4.4 g/dL 3.5-5. 3 Not Available [facility] ([facility]) [address] [place] [address] Dr Kaiser, [place], [address], 11/01/2024 08:17:09 10/30/19 25 10/30/2024 COMPR EHENS SURENDRA METAB OLIC PANEL (CMP) alkaline phosphatase 91 IU/L 35-121 Not Available [facility] ([facility]) [address] [place] [address] Dr Kaiser, [place], [address], 11/01/2024 08:17:09 10/30/19 25 10/30/2024 COMPR EHENS SURENDRA METAB OLIC PANEL (CMP) ALT (SGPT) 7 IU/L <5-47 Not Available [facility] ([facility]) [address] [place] [address] Dr Kaiser, [place], [address], 11/01/2024 08:17:09 10/30/19 25 10/30/2024 COMPR EHENS SURENDRA METAB OLIC PANEL (CMP) AST (SGOT) 9 IU/L <5-40 Not Available [facility] ([facility]) [address] [place] [address] Dr Kaiser, [place], [address], 11/01/2024 08:17:09 10/30/19 25 10/30/2024 COMPR EHENS SURENDRA METAB OLIC PANEL (CMP) bilirubin, total 0.3 mg/dL <0.2-1 .2 Not Available [facility] ([facility]) [address] [place] [address] Dr Kaiser, [place], [address], 11/01/2024 08:17:09 10/30/19 25 10/30/2024 COMPR EHENS SURENDRA METAB OLIC PANEL (CMP) A/G ratio 1.6 1.1-2. 5 Not Available [facility] ([facility]) [address] [place] [address] Dr Kaiser, [place], [address], 11/01/2024 08:17:09 10/30/19 25 10/30/2024 VITAM IN D 25-HY DROXY vitamin D 25-hydroxy 31.5 NG/mL 30.0-1 00.0 Inter preta tion of Vitam in D 25 OH: < 20 ng/mL - Defic iency 20 - 29 ng/mL - Insuf ficie ncy 30 - 100 ng/mL - Suffi cienc y > 100 ng/mL - Super -ther apeut ic- toxic ity may occur above this level . Clini rufina corre latio n requi red. Not Available [facility] ([facility]) [address] [place] [address] Dr Kaiser, [place], [address], 11/01/2024 08:17:09 10/30/19 25 10/30/2024 TESTO STERO NE TOTAL testosterone total SEE BELOW NG/dL 8.00-4 8.00 The resul t for testo stero ne is outsi de of the repor table range for this metho dolog y and has autom atica lly refle xed Testo stero ne, Total by LC/MS . Not Available [facility] ([facility]) [address] [place] [address] Dr Kaiser, [place], [address], 11/01/2024 08:17:10 10/30/19 25 11/01/2024 TESTO STERO NE, TOTAL BY LC/MS testosterone , total by lc/MS 13.8 NG/dL 5.0-55 .0 Preme nopau cee 5-55 ng/dL (Grea ter than 18 years ) Postm enopa usal 6-30 ng/dL This test was devel oped and its perfo rmanc e [facility] were deter mined by [facility] atori es. It has not been clear ed or appro chandler by the FDA. The labor atory is regul ated under CLIA as quali fied to perfo rm high- compl exity testi ng. This test is used for clini rufina purpo ses and shoul d not be regar ded as inves tigat ional or for resea [facility]. Not Available [facility] ([facility]) [facility] Dr Kaiser, [place], [address], 11/01/2024 08:17:11 10/30/19 25 10/30/2024 ESTRA DIOL estradiol 127 pg/mL Estra diol Refer ence Range Healt hy women Folli cular phase 12.4 - 233 Ovula tion phase 41.0 - 398 Lutea l phase 22.3 - 341 Postm enopa use <5 - 138 Healt hy pregn ant women 1st trime ster 154 - 3243 2nd trime ster 1561 - 80474 3rd trime ster 8525 - >3000 0 Not Available [facility] ([facility]) [address] [place] [address] Dr Kaiser, [place], [address], 11/01/2024 08:17:11 10/30/19 25 10/30/2024 VITAM IN B12 vitamin B12 352 pg/mL 232-12 45 Not Available [facility] ([facility]) [address] [place] [address] Dr Kaiser, [place], [address], 11/01/2024 08:17:12 10/30/19 25 10/30/2024 HEMOG LOBIN A1C hemoglobin A1C 5.1 % <5.7 The follo wing HbA1c range s recom paulino d by the Ameri can Diabe kay Assoc iatio n (ADA) may be used as an aid in the diagn osis of diabe kay melli tus. HbA1c Sugge sted Diagn osis >=6.5 % Diabe tic 5.7% - 6.4% Pre-D iabet ic <5.7% Non-D iabet ic Not Available [facility] ([facility]) [address] [place] [address] Dr Kaiser, [place], [address], 11/01/2024 08:17:12 10/30/19 25 10/30/2024 HEMOG LOBIN A1C estimated average glucose (EAG) 100 mg/dL Estim ated Rodney ge Gluco se (eAG) is calcu lated using the equat ion eAG = (28.7 x HbA1c ) - 46.7 based on the guide lines estab lishe d by the ADA. If the patie nt has certa in disea ses inclu ding kidne y disea se, sickl e cell anemi a, thala ssemi a, or is takin g medic ation s such as dapso ne, eryth ropoi etin, or iron, eAG shoul d not be evalu ated. Not Available [facility] ([facility]) [address] [place] [address] Dr Kaiser, [place], [address], 11/01/2024 08:17:12 10/30/19 25 10/30/2024 TSH TSH 2.50 mU/L 0.43-5 .25 Not Available [facility] [address] [place] [address] Dr Kaiser, [place], [address], 11/01/2024 08:17:13 10/30/19 25 10/30/2024 DHEA- SULFA TE DHEA-sulfate 124 ug/dL 61-337 Not Available [facility]) [address] [place] [address] Dr Kaiser, [place], [address], 11/01/2024 08:17:14 01/12/20 24 [place], obste tric No observ ation record ed. varms Not Available 2023 13:45:39 Result Notes None recorded. Problems Name Problem SNOMED Code Status Onset Date Resolution Date Notes Provider Name and Address Organization Details Recorded Time History of SARS-CoV- 2 01377478675 7465407 Completed 202007/28/2020 Aidee Acuña MD [address], [place], [address] , [facility] 2 10:34:58 Threatene d miscarria ge 14975896 Active 2022 [facility] 3 11:56:04 54776914 Completed 202301/23/2024 [facility] 4 12:02:10 Dysuria 50928877 Active 2023 [facility] 4 10:58:48 Gestation period, 5 weeks 64778977 Active [address], [place], [address] , [facility] 4 12:38:08 Gestation period, 6 weeks 64418677 Active [address], [place], [address] , [facility] 4 17:34:45 Gestation period, 8 weeks 09993116 Active [address], [place], [address] , [facility] 4 12:54:45 Gestation period, 12 weeks 39988217 Active [address], [place], [address] , [facility] 4 12:11:21 Gestation period, 16 weeks 49442622 Active [address], [place], [address] , [facility] 4 12:21:52 Gestation period, 21 weeks 99965584 Active [address], [place], [address] , [facility] 4 11:15:57 Gestation period, 24 weeks 363265427 Active [address], [place], [address] , [facility] 4 14:36:26 Gestation period, 27 weeks 12596675 Active [address], [place], [address] , [facility] 4 14:19:32 Gestation period, 28 weeks 30312040 Active [address], [place], [address] , [facility] 4 10:09:00 Gestation period, 31 weeks 52982562 Active [address], [place], [address] , [facility] 4 10:23:37 Gestation period, 33 weeks 10295232 Active [address], [place], [address] , [facility] 10:00:59 Problem Notes None recorded. Procedures Surgical History Date Name Laterality Status Provider Name and Address Organization Details Recorded Time 04/05/20 24 Endometrial Biopsy completed MD [address], [place], [address], [facility] 04/05/2024 15:18:55 04/05/20 24 Non-OB ULS completed MD [address]aciela [address], [place], [address], [facility] 04/05/2024 15:13:03 04/05/20 24 IUD Insertion completed MD [address]iela [address], [place], [address], [facility] 04/05/2024 15:17:18 04/05/20 24 Paracervical Block completed [facility] 04/05/2024 13:47:25 02/27/20 24 Other completed MD [address]a [address], [place], [address], [facility] 02/27/2024 10:57:07 01/12/20 24 Obstetrical Care completed MD [address]a [address], [place], [address], [facility] 01/12/2024 13:36:53 11/14/19 24 Injection completed [address], [place], [address], [facility] 11/14/2023 14:19:17 06/09/19 24 Confirmation completed MD Graciela [address], [place], [address], [facility] 06/09/2023 11:51:05 05/17/20 23 Follicular Scan completed MD [address]iel[address], [place], [address], [facility] 05/17/2023 15:41:25 04/18/20 23 Follicular Scan completed MD [address], [place], [address], [facility] 04/18/2023 12:00:57 04/18/20 23 Injection completed MD [address], [place], [address], [facility] 04/18/2023 12:03:18 03/21/20 23 Follicular Scan completed MD [address]iel[address], [place], [address], [facility] 03/21/2023 13:27:50 01/11/20 23 Non-OB ULS completed MD Graciela [address], [place], [address], [facility] 01/10/2023 10:14:20 05/11/20 22 Non-OB ULS completed MD [address]iel[address], [place], [address], [facility] 05/11/2022 10:44:38 03/30/20 22 Date of Last Pap Smear completed [facility] 05/11/2022 09:56:43 05/30/19 13 Date of Last Mammogram completed [facility] 10/29/2024 09:51:04 Caesarean Section completed [facility] 04/05/2024 13:52:02 Tubal Ligation completed [facility] 05/11/2022 09:55:48 Laparoscopy completed Aidee Acuña MD [address] [facility] [address], [place], [address], [facility] 05/11/2022 10:36:43 hysteroscopy completed [facility] 01/10/2023 09:15:59 Imaging Results None recorded. Procedure Notes None recorded. Medical Equipment None Reported. Allergies No known drug allergies Medications Name Sig Start Date Stop Date Status Note LastModified by Organization Details LastModified Time Mirena 21 mcg/24 hr (up to 8 years) 52 mg intrauter ine device Take by intraute rine route. active Not Available Not Available No t Available Cipro 500 mg tablet Take 1 tablet twice a day by oral route with meals for 3 days. 10/29 completed pending allergie s Not Available Not Available Not Available metformin ER 500 mg tablet,ex tended release 24 hr Take 3 tablets every day by oral route at dinner for 30 days, for PCOS. 2024 active Not Available Not Available Not Avai lable Diflucan 200 mg tablet Take 1 tablet every day by oral route. 11/17 completed Not Available Not Available Not Available Clomid 50 mg tablet Take 1 tablet every day by oral route. 06/09 completed when needed Not Available Not Available Not Available estradiol 0.025 mg/24 hr semiweekl y transderm al patch Apply 1 patch twice a week by transder mal route. 06/09 completed Not Available Not Available Not Available Flor 0.35 mg tablet Take 1 tablet every day by oral route as directed for 30 days, for BC. 02/26 completed Not Available Not Available Not Available folic acid 02/26 completed Not Available Not Available Not Available iron 02/26 completed topical patch Not Available Not Available Not Available 04/05 completed Not Available Not Available Not Available Keflex 750 mg capsule Take 1 capsule twice a day by oral route as directed for 5 days, for Bladder infectio n. 11/17 completed Not Available Not Available Not Available metformin ER 500 mg 24 hr tablet,ex tended release (gastric retention ) Take 3 tablets every day by oral route with evening meal for 30 days. 10/25 completed Not Available Not Available Not Available Slynd 4 mg (28) tablet Take 1 tablet every day by oral route for 90 days. 02/26 completed Not Available Not Available Not Available Vitals Date Recorded Body height Body mass index (BMI) Body weight Systolic blood pressure Diastolic blood pressure Provider Name and Address Organization Details Last Updated DateTime 10/29/2024 167.64 cm 26.5 kg/m2 98138.15 g 120 mm[Hg] 84 mm[Hg] [facility] 5 09:49:52 Date Recorded Body height Body mass index (BMI) Body weight Systolic blood pressure Diastolic blood pressure Provider Name and Address Organization Details Last Updated DateTime 01/16/2024 167.64 cm 31.4 kg/m2 24893.36 g 124 mm[Hg] 78 mm[Hg] [facility] 4 15:21:01 Date Recorded Body height Body mass index (BMI) Body weight Systolic blood pressure Diastolic blood pressure Provider Name and Address Organization Details Last Updated DateTime 01/23/2024 167.64 cm 29 kg/m2 56972.91 g 126 mm[Hg] 82 mm[Hg] [facility] 4 12:02:55 Date Recorded Body height Body mass index (BMI) Body weight Systolic blood pressure Diastolic blood pressure Provider Name and Address Organization Details Last Updated DateTime 02/27/2024 167.64 cm 28.2 kg/m2 22629.95 g 124 mm[Hg] 78 mm[Hg] [facility] 4 09:25:22 Date Recorded Body height Body mass index (BMI) Body weight Systolic blood pressure Diastolic blood pressure Provider Name and Address Organization Details Last Updated DateTime 04/05/2024 167.64 cm 28.3 kg/m2 09354.38 g 120 mm[Hg] 82 mm[Hg] [facility] 13:51:27 Social History Question Answer Notes LastModified by Organizat ion Details LastModified Time Tobacco Smoking Status Former Smoker quit 2016 [facility] 10/26/2023 09:13:18 Do You Use Protection During Sex? No [email or web address] Information not available 07/01/2023 What Is Your Relationship Status? [email or web address] Information not available 07/01/2023 Are You Sexually Active? Yes [email or web address] Information not available 07/01/2023 Sex: Female Functional Status Question Answer Note LastModified by Organizat ion Details LastModified Time Do you use any illicit or recreational drugs? No [email or web address] Information not available 07/01/2023 Do you or have you ever used any other forms of tobacco or nicotine? No [email or web address] Information not available 07/01/2023 What is your level of alcohol consumption? Occasional [email or web address] Information not available 07/01/2023 Mental Status None recorded. Family History Relationship Description Onset Age of this Age Resolved Age Notes LastModified by Organization Details LastModified Time Mother Hysterectomy [email or web address] Not availab le 05/11/2022 10:47:27 Medical History No medical history recorded. Gynecological History Statement/Question Response Who is your Primary Care Physician Abnormal Pap N Date of Last Mammogram 05/30/2012 Are your periods regular? Y HPV Vaccine N Date of Last Pap Smear 03/30/2022 Age at Menarche 14 Hormone Replacement Therapy N Obstetrics History GPAL:G 6 P 0 1 1 5 Type Value Spontaneous 1 Premature 1 Living 5 Total 6 Past Encounters Encounter ID Performer Location Encounter Start Date Encounter Closed Date Diagnosis/Indication Diagnosis SNOMED-CT Code Diagnosis ICD10 Code Diagnosis Note [id number] MD AIDEE Ramachandran MD [address] [place] [address] 05/11/2022 09:27:25 05/11/2022 11:09:33 History of tubal ligation 792247188 Z98.51 Trying to conceive 50940 9001 Z31.9 Pre-surger y evaluation 894577014 Z01.818 History of endometriosis 8068259553 5883759 Z87.42 Endometrium thickened 44 6077082 R93.89 Polyp of corpus uteri 11 671003 N84.0 Polycystic ovary syndrome 837365152 E28.2 Vaginal discharge 551159 006 N89.8 will culture via PCL Menorrhagia 357394791 N9 2.0 Dysmenorrhea 559666569 N 94.6 Dyspareunia 91429994 N94 .10 Pain in pelvis 26074372 R10.2 Endometrio sis of pelvis 36495119 N80.30 [id number] JASMYNE Norris MD [address] [place] [address] 09/08/2022 09:06:01 09/08/2022 09:47:53 Postoperative visit 292362509 Z09 Family valery nning surveillance 837521007 Z30.09 [id number] MD AIDEE Ramachandran MD [address] [place] [place] [address] 01/10/2023 08:58:46 01/10/2023 10:21:03 Polycystic ovary syndrome 110929821 E28.2 Vaginal discharge 726430 006 N89.8 will culture via PCL Complete miscarriage 156 657133 O03.9 [id number] MD AIDEE Ramachandran MD [address] [place] [address] 5 03/21/2023 11:52:02 03/21/2023 13:40:53 Family planning surveillance 367339003 Z30.09 [id number] MD AIDEE Ramachandran MD [address] [place] [address] 5 04/18/2023 11:02:20 04/18/2023 12:12:50 Family planning surveillance 907669713 Z30.09 [id number] MD AIDEE Ramachandran MD [facility] [address] [place] [address] 5 05/17/2023 14:41:54 05/17/2023 15:51:16 Family planning surveillance 584743892 Z30.09 [id number] MD AIDEE Ramachandran MD [facility] [address] [place] [address] 5 06/09/2023 09:58:06 06/09/2023 12:07:15 detection examination 72149815 Z32.00 Venereal d isease screening 901811744 Z11.3 will culture via Coast [id number] DIEGO Dykes MD [address] [place] [address] 5 06/13/2023 10:52:38 06/13/2023 12:47:48 Dysuria 53971561 O26.899 Sent for culture via [facility] Threatened miscarriage 00631810 O20.0 Gestation period, 5 weeks 17618806 Z3A.01 [id number] DIEGO Dykes MD [address] [place] [address] 5 06/17/2023 13:22:32 06/20/2023 16:45:54 Dysuria 01768305 O26.899 Sent for culture via [facility] RhD negative 909413076 Z 01.83 Gestation period, 6 weeks 82046725 Z3A.01 [id number] DIEGO Dykes MD [address] [place] [address] 5 07/01/2023 11:01:52 07/01/2023 13:13:02 Dysuria 58335206 O26.899 RhD negative 121636803 Z 83 Past pregn sravani history of miscarriage 852523913 Z87.59 Gestation period, 8 weeks 25803872 Z3A.08 [id number] DIEGO Dykes MD [address] [place] [address] 5 07/29/2023 10:24:47 07/29/2023 12:28:37 Dysuria 76125592 O26.899 Sent for culture via [facility] Gestation period, 12 weeks 13032169 Z3A.12 RhD negative 588953445 Z 83 Past pregn sravani history of miscarriage 089727896 Z87.59 [id number] DIEGO Dykes MD [address] [place] [address] 5 08/26/2023 10:41:50 08/26/2023 12:30:19 Dysuria 68667683 O26.899 Sent for culture via [place] RhD negative 602400397 Z 83 Past pregn sravani history of miscarriage 764068049 Z87.59 Gestation period, 16 weeks 72042937 Z3A.16 History of tubal ligation 782936029 Z98.51 tubal reinastomo sis [id number] JASMYNE Marie MD [address] [place] [address] 5 09/30/2023 09:57:38 09/30/2023 11:34:10 Dysuria 60861940 O26.899 Gestation period, 21 weeks 08020174 Z3A.21 [id number] DIEGO Dykes MD [address] [place] [address] 5 10/26/2023 09:00:33 10/26/2023 14:41:42 Dysuria 67537449 O26.899 Sent for culture via [place] RhD negative 801462138 Z 01.83 Past pregn sravani history of miscarriage 205032011 Z87.59 History of tubal ligation 575789194 Z98.51 tubal reanastomo sis Past pregn sravani history of section 088619565 Z98.890 Gestation period, 24 weeks 443071998 Z3A.24 [id number] MD AIDEE Ramachandran MD [address] [place] [address] 5 10/27/2023 10:29:17 10/27/2023 13:27:06 Blood in urine 08920442 R31.9 Anemia of 2734 2004 O99.019 la bor without delivery 5486838782 9726555 O60.02 Candidiasis of vagina 72 224048 B37.31 Microscopic hematuria 19 2034329 R31.29 Premature labor 4506735 Z36.86 [id number] DIEGO Dykes MD [address] [place] [address] 5 11/14/2023 13:18:53 11/14/2023 15:16:30 RhD negative 850004990 Z01.83 Gestation period, 27 weeks 17785698 Z3A.27 Past pregn sravani history of miscarriage 590311321 Z87.59 Past pregn sravani history of section 075756605 Z98.890 History of tubal ligation [id number] Z98.51 tubal reanastomo sis [id number] JASMYNE Marie MD [address] [place] [address] 5 11/18/2023 09:06:23 11/18/2023 10:52:41 Dysuria 62580370 O26.899 Gestation period, 28 weeks 40249390 Z3A.28 [id number] DIEGO Dyeks MD [address] [place] [address] 5 12/14/2023 09:27:12 12/14/2023 10:50:24 Dysuria 88174546 O26.899 Sent for culture via [facility] Gestation period, 31 weeks 33512083 Z3A.31 Past pregn sravani history of section 676402274 Z98.890 RhD negative [id number] Z 01.83 History of tubal ligation 340100255 Z98.51 tubal reanastomo sis Past pregn sravani history of miscarriage 497027565 Z87.59 15838 DIEGO Dykes MD [address] [place] [id number] 5 12/29/2023 11:32:59 01/02/2024 09:59:01 Dysuria 32068825 O26.899 Gestation period, 33 weeks 28452041 Z3A.33 Past pregn sravani history of section 495620670 Z98.890 RhD negative 289298565 Z 01.83 Past pregn sravani history of miscarriage 750769182 Z87.59 History of tubal ligation 457465214 Z98.51 tubal reanastomo sis [id number] MD AIDEE Ramachandran MD [address] [place] [phone] 5 01/12/2024 12:07:03 01/12/2024 13:40:00 Gestation period, 36 weeks 64284934 Z3A.36 Viable fet us in abdominal 106832892 O36.73X1 Nicko Hi cks contractions 34734423 O47.03 Polyhydramnios 97129343 O40.3XX1 55390 DIEGO Dykes MD [address] [place] [address] 5 01/23/2024 11:34:33 01/23/2024 18:45:26 Family planning surveillance 381816406 Z30.09 state 9625550 1 Z39.2 46300 MD AIDEE Ramachandran MD [address] [place] [phone] 02/27/2024 09:02:00 02/27/2024 11:01:04 state 16847114 Z39.2 Galactocel e associated with childbirth 33259171 O92.79 Vaginal discharge 980632 006 N89.8 [place] culture via P[place] 29778 MD AIDEE Ramachandran MD [address] [place] [address] 04/05/2024 12:59:51 04/05/2024 15:34:06 Insertion of intrauterine contraceptive device 17041184 Z30.430 Endometrium thickened 44 8570228 R93.89 50507 MD AIDEE Ramachandran MD [address] [place] [address] 10/29/2024 09:41:21 10/29/2024 11:01:23 Gynecologic examination 21381131 Z01.419 Drug therapy finding 309 033172 Z79.890 Multinodular goiter 2375 29572 E04.2 Inflammati on of cervix 13607511 N72 Polycystic ovary syndrome 586785295 E28.2 Health Concerns Section Related Observation LastModified by Organization Detai ls LastModified Time None Recorded Concern Status LastModified by Organization Details LastModified Time None Recorded Advance Directives Directive None Recorded Payers Insurance Date Sequence Insurance Name Policy Number Policy Gomez Covered Member ID Gomez Member ID Guarantor Name 10/01/2024 [facility] [employer] (MEDICARE REPLACEMENT/ ADVANTAGE - PPO) [id number] Ophelia [place] [id number] [facility] 10/29/2024 1 [place] [id number] Ophelia R Ramirez [id number] [facility] 10/29/2024 1 [employer] (POS) [id number] Pending Sale To [facility] [id number] [facility]24 [facility] Notes Date Note Type Note Provider Name and Address Organization Details Recorded Time 01/23/2024 text/html VisitReported bypatient.Quality:p rimary C/S; repeat C/S Context:no complications; feeding choice: breast and bottle; good support from partner/family; resumed sexual activity no Associated Symptoms:no abnormal bleeding; no vaginal discharge; no pelvic pain; laceration well healed; no constipation; no fecal incontinence; no dysuria; no urinary incontinence; no fever; no problems; no mastitis; normal mood; no uterine cramping Contraception Plan:progesterone only pill DIE[address], [place], [address], [facility] 01/23/2024 18:35:25 02/27/2024 text/html 38 y/o presents for post- visit. She had a repeat of a healthy baby boy (Hiram) with Dr. Acuña. MD [address], [place], [address], [facility] 02/27/2024 11:01:32 04/05/2024 text/html Patient presents for IUD insertion. IUD is Mirena. MD [address], [place], [address], [facility] 04/05/2024 15:32:33 10/29/2024 text/html Pt is here for a n annual exam. She states that she would like to be put back on Metformin. Pt states since she had her Mirena put in she doesn't have abnormal cycles, but she does have some spotting. She reports low libido, and abnormal hair loss. MD [address], [place], [address], [facility] 10/29/2024 11:01:00 OBGyn Episode Ob Episode Information Episode Created Date Number of Fetuses Patient Bloodtype Patient rh Status Prepregnancy Weight lbs Domestic Partner Domestic Partner Phone Father Name Pillow Agent Status 06/09/19 24 1 A Negative CLOSED Fetus Data First Name Last Name Admitted to NICU Weight (g) Sex Living Outcome Pediatric Complications Fetus ID Race Codes Race Delivery Type Hiram Ramirez true 3288.54 2 M true Prematur e needed oxygen 19436-3 White Brannon Calculation Initial Brannon Date Initial Exam Date Initial Exam Provider Initial Ultrasound Date Last Menstrual Period Date Ultra Sound Weeks Gestation 02/10/2024 06/09/2023 mkaron 05/06/2023 0 Eighteen To Twenty Week Brannon Update Ultra Sound Date Fundal Height At Umbil Quickening Date Ultra Sound Latest Weeks Gestation Final Brannon Confirmed By Final Brannon Confirmed Date Final Brannon Date Ultra Sound Latest Days Gestation 0 02/10/20 24 0 Pre-rex Flowsheet Flowsheet Date 06/09/2023 Thomas Score Blood Edema Fundus Height Fundus Units Glucose Ketones Leukocytes Nitrite Labor Signs Protein Cervic Dilation Cervic Effacement Cervic Station Type Weight in lbs Pre/Post Dialysis Refused With clothes 161.301670578649 BP Diastolic BP Location Tested BP Systolic BP Type 70 L arm 126 sitting Fetus Heart Rate Present Fetus Movement Comments Flowsheet Date 06/13/2023 Thomas Score Blood Edema Fundus Height Fundus Units Glucose Ketones Leukocytes Nitrite Labor Signs Protein Cervic Dilation Cervic Effacement Cervic Station neg none none none Negative neg Type Weight in lbs Pre/Post Dialysis Refused With clothes 160.35143196640 BP Diastolic BP Location Tested BP Systolic BP Type 82 L arm 120 sitting Fetus Heart Rate Present Fetus Movement Comments 37 y/o F here today for OB problem visit. She reports uterine cramping and back pain going up her spine on and off for 4 days. Pt denies bleeding, nausea. OB ULS with Dr. Acuña performed revealed a pole and ovarian cysts. Reviewed recent BW with pt, encouraged her that her progesterone was WNL. Will redraw Progesterone and Beta HCG in office today. Encouraged her to call if she develops bleeding, pt expressed understanding. Discussed with pt that due to her GA, we are unable to send her to [facility] for ULS. Urine dipstick in office negative, will send for culture. Pt will return Tuesday for OB ULS with Serene, sooner if needed. Flowsheet Date 06/17/2023 Thomas Score Blood Edema Fundus Height Fundus Units Glucose Ketones Leukocytes Nitrite Labor Signs Protein Cervic Dilation Cervic Effacement Cervic Station neg 6 cm none none Negative neg Type Weight in lbs Pre/Post Dialysis Refused With clothes 162.152228433370 BP Diastolic BP Location Tested BP Systolic BP Type 64 L arm 122 sitting Fetus Heart Rate Present A 110 Present Fetus Movement Comments 37 y/o F here today for routine OB apt and Viability ULS with Serene. She is 6 weeks and 0/7 days GA. She is doing well and is without OB complaint. Reviewed recent BW with pt, encouraged her that her progesterone was WNL and discussed HCG has increased. Pt wanted Progesterone supplements, discussed with pt it isn't necessary at this time due to her levels being WNL. Pt stated she would feel more comfortable with Progesterone as it is following, will send int RX Progesterone 100mg PV qhs. Taking PNV daily. Urine dipstick negative. Denies bleeding. Denies loss of fluids. Denies contractions. FHT detected on ULS. ULS with Serene revealed suspected vanishing twin. There are 2 sacs within the endometrium. They are difficult to see due to uterus is retroverted. There is definitely a pole in one of the sacs with cardiac activity. The second sac in indeterminant at this time. Follow up ULS in 2 weeks. She will RTC in weeks for routine OB apt, sooner if needed. Flowsheet Date 07/01/2023 Thomas Score Blood Edema Fundus Height Fundus Units Glucose Ketones Leukocytes Nitrite Labor Signs Protein Cervic Dilation Cervic Effacement Cervic Station neg 8 cm none none Negative neg Type Weight in lbs Pre/Post Dialysis Refused With clothes 167.881190232180 BP Diastolic BP Location Tested BP Systolic BP Type 64 L arm 120 sitting Fetus Heart Rate Present A 170 Present Fetus Movement Comments 37 y/o F here today for routine OB apt and viability ULS with Serene. She is 8 weeks and 0/7 days GA. She is doing well and is without OB complaint. Taking PNV daily. Urine dipstick negative. Denies bleeding. Denies loss of fluids. Denies contractions. FHT detected on ULS. ULS - SIUP with cardiac activity noted. Size = dates. NT ULS in 4 weeks She will RTC in 4 weeks for routine OB apt and NT ULS, sooner if needed. Pt will walk in next week for NIPT bloodwork. Flowsheet Date 07/29/2023 Thomas Score Blood Edema Fundus Height Fundus Units Glucose Ketones Leukocytes Nitrite Labor Signs Protein Cervic Dilation Cervic Effacement Cervic Station neg 12 cm none none Negative neg Type Weight in lbs Pre/Post Dialysis Refused With clothes 171.101174680380 BP Diastolic BP Location Tested BP Systolic BP Type 70 L arm 126 sitting Fetus Heart Rate Present A 164 Present Fetus Movement Comments 37 y/o F here today for routine OB apt and NT ULS with Serene. She is 12 weeks and 0/7 days GA. She is doing well and is without OB complaint. Pt has history of depression. Discussed starting Zoloft or Wellbutrin, pt is not interested at this time. Denies SI / HI. Taking PNV daily and folic acid daily. Urine dipstick negative, sent for culture via [facility]. Denies bleeding. Denies loss of fluids. Denies contractions. FHT detected on ULS. Nuchal Translucency ULS - Size = dates. NT WNL. Limited normal anatomy. Anatomy scan at 20 weeks. She will RTC in 4 weeks for routine OB apt, sooner if needed. Flowsheet Date 08/26/2023 Thomas Score Blood Edema Fundus Height Fundus Units Glucose Ketones Leukocytes Nitrite Labor Signs Protein Cervic Dilation Cervic Effacement Cervic Station neg 15 cm none none Negative neg Type Weight in lbs Pre/Post Dialysis Refused With clothes 173.091749808108 BP Diastolic BP Location Tested BP Systolic BP Type 62 L arm 118 sitting Fetus Heart Rate Present A 146 Present Fetus Movement Comments 37 y/o F here today for routine OB apt. She is 16 weeks and 0/7 days GA. She is doing well and is without OB complaint. Taking PNV daily. Urine dipstick negative. Denies bleeding, loss of fluids, and contractions. FHT with good variability detected in office with doppler. She will RTC in 4 weeks for routine OB apt and ERIKA ULS, sooner if needed. She is going to [place] in October for vacation! Flowsheet Date 09/30/2023 Thomas Score Blood Edema Fundus Height Fundus Units Glucose Ketones Leukocytes Nitrite Labor Signs Protein Cervic Dilation Cervic Effacement Cervic Station Type Weight in lbs Pre/Post Dialysis Refused With clothes 177.807514787788 BP Diastolic BP Location Tested BP Systolic BP Type 72 L arm 108 sitting Fetus Heart Rate Present A 140 Present Fetus Movement Comments 37 y/o F here today for routine OB apt. She is 21 weeks and 0/7 days GA. She is doing well and is without OB complaint. Taking PNV daily. Urine dipstick negative. Denies bleeding. Denies loss of fluids. Denies contractions. FHT detected on ULS. Normal limited anatomy. Follow up scan in 7 weeks. She will RTC in 4 wks for routine OB apt with glucose test, sooner if needed. Flowsheet Date 10/26/2023 Thomas Score Blood Edema Fundus Height Fundus Units Glucose Ketones Leukocytes Nitrite Labor Signs Protein Cervic Dilation Cervic Effacement Cervic Station neg 25 cm none none Negative neg Type Weight in lbs Pre/Post Dialysis Refused With clothes 182.354216132820 BP Diastolic BP Location Tested BP Systolic BP Type 68 L arm 120 sitting Fetus Heart Rate Present A 134 Present Fetus Movement A Yes Comments 37 y/o F here today for routine OB apt and 1h OGTT. She is 24 weeks and 5/7 days GA. Doing well and without OB complaint. Reports increased in varicose veins, recommended compression stockings and taking breaks inbetween standing at work. Taking PNV daily and folic acid daily. Urine dipstick negative, urine sent for culture via [facility]. Denies bleeding, loss of fluids, and contractions. FHT with good variability detected in office with doppler. She will walk in for Rhogam Injection November 13. She will RTC in 4weeks for routine OB apt and growth ULS, sooner if needed. Flowsheet Date 10/27/2023 Thomas Score Blood Edema Fundus Height Fundus Units Glucose Ketones Leukocytes Nitrite Labor Signs Protein Cervic Dilation Cervic Effacement Cervic Station 3+ none trace Negative trace Type Weight in lbs Pre/Post Dialysis Refused With clothes 182.30102108545 BP Diastolic BP Location Tested BP Systolic BP Type 62 L arm 126 sitting Fetus Heart Rate Present A 138 Present Fetus Movement A Yes Comments 37 yo F here today for routine OB visit. She is 24 weeks and 4/7 days GA. She reports that she is experiencing painful cramping that started last night. She suspects it might be from gas. She states the pain is starting to ease up a bit. She states that the pain is on both sides. This morning pt said she felt her uterus was tight and states it has relaxed and became more soft today. Baby presents breech on ULS. FHT with good variabilty seen. ULS revealed good blood flow. Large amounts of stool was seen in colon. Urine dipstick is positive for blood in the urine and traces in protein and leukocytes. A Fibronectin test was done to test for labor. Spec exam revealed abnormal discharge, culture collected. Magnesium citrate was discussed with pt to help with constipation. It is suspected that the position of the baby might be contributing to the pt pain and discomfort. Keflex will be prescribed for blood in urine and iron patch for anemia will be prescribed today. NST was done in office today. Flowsheet Date 11/14/2023 Thomas Score Blood Edema Fundus Height Fundus Units Glucose Ketones Leukocytes Nitrite Labor Signs Protein Cervic Dilation Cervic Effacement Cervic Station Type Weight in lbs Pre/Post Dialysis Refused BP Diastolic BP Location Tested BP Systolic BP Type Fetus Heart Rate Present Fetus Movement Comments 37 y/o F here today for Rhogam Injection. She is 27 weeks and 3/7 days GA. Rhogam was injected IM into the Left Dorsal Glute by Salud Ortega. Pt tolerated well. No signs of reaction noted. No complaints verbalized by patient. Lot: [id number]. Exp: 05-19-2026. Flowsheet Date 11/18/2023 Thomas Score Blood Edema Fundus Height Fundus Units Glucose Ketones Leukocytes Nitrite Labor Signs Protein Cervic Dilation Cervic Effacement Cervic Station Type Weight in lbs Pre/Post Dialysis Refused With clothes 185.201845854347 BP Diastolic BP Location Tested BP Systolic BP Type 70 L arm 110 sitting Fetus Heart Rate Present A 137 Present Fetus Movement Comments 37 y/o F here today for routine OB apt and follow up anatomy scan. WNL. Anatomy complete. She is 28 weeks and __/7 days GA. She is doing well and is without OB complaint. Taking PNV daily. Urine dipstick negative. Denies bleeding. Denies loss of fluids. Denies contractions. FHT detected on ULS . She will RTC in 4 wks for routine OB apt, sooner if needed. Flowsheet Date 12/14/2023 Thomas Score Blood Edema Fundus Height Fundus Units Glucose Ketones Leukocytes Nitrite Labor Signs Protein Cervic Dilation Cervic Effacement Cervic Station neg none 31 cm none none Negative neg 0cm 0% - 4 Type Weight in lbs Pre/Post Dialysis Refused With clothes 192.432975532734 BP Diastolic BP Location Tested BP Systolic BP Type 70 L arm 120 sitting Fetus Heart Rate Present A 136 Present Fetus Movement A Yes Comments 37 y/o F here today for routine OB apt. She is 32 weeks and 5/7 days GA. Reports increased pelvic pressure, sharp pelvic pain, nicko concepcion that resolve and are inconsistent. Cervix check performed today, 0cm/0%/-4. Previously she has gone into labor without induction at 37 weeks GA. Recommended massages and binder. Taking PNV daily, iron daily, and folic acid daily. Urine dipstick negative, sent for culture via [facility]. Denies bleeding. Denies loss of fluids. FHT with good variability detected in office with doppler. She will RTC in 2 wks for routine OB apt, sooner if needed. Flowsheet Date 12/29/2023 Thomas Score Blood Edema Fundus Height Fundus Units Glucose Ketones Leukocytes Nitrite Labor Signs Protein Cervic Dilation Cervic Effacement Cervic Station neg none none none Negative neg Type Weight in lbs Pre/Post Dialysis Refused With clothes 191.469650021909 BP Diastolic BP Location Tested BP Systolic BP Type 72 L arm 104 sitting Fetus Heart Rate Present A 138 Present Fetus Movement A Yes Comments 37 y/o F here today for routine OB apt. She is 33 weeks and 6/7 days GA. She is doing well overall. Reports braxtin concepcion. Taking PNV daily, iron daily, and folic acid daily. Urine dipstick negative. Denies bleeding. Denies loss of fluids. Denies contractions. FHT with good variability detected in office with doppler. She will RTC in 2 wks for routine OB apt, sooner if needed. Offered RSV, pt will think about it. Flowsheet Date 01/12/2024 Thomas Score Blood Edema Fundus Height Fundus Units Glucose Ketones Leukocytes Nitrite Labor Signs Protein Cervic Dilation Cervic Effacement Cervic Station neg none none Negative trace 1cm 80% -1 Type Weight in lbs Pre/Post Dialysis Refused With clothes 195.886105329835 BP Diastolic BP Location Tested BP Systolic BP Type 66 L arm 124 sitting Fetus Heart Rate Present Fetus Movement A Yes Comments 38 yo F presents for OB f/u. She is 35 weeks and 6/7 days GA. She reports that she wiped and saw bright red blood blood at around 8:30 am. She states that the bleeding stopped around 9:15 am. She states that she thinks she's been experiencing some nicko concepcion contractions. Spec exam reveals no bleeding. Urine dipstick reveals traces of protein. ULS shows Vertex presenation. JOURDAN is on the upper end of normal. Breathing movements and good muscle tone are observed. FM are noted. UAD shows good blood flow. BPP: 8/8. Baby measures to be 7 pounds and 15 ounces. GBS was collected today . Pt will RTC for routine OB f/u on Tuesday. Flowsheet Date 01/16/2024 Thomas Score Blood Edema Fundus Height Fundus Units Glucose Ketones Leukocytes Nitrite Labor Signs Protein Cervic Dilation Cervic Effacement Cervic Station neg none none none Negative trace Type Weight in lbs Pre/Post Dialysis Refused With clothes 194.391955566821 BP Diastolic BP Location Tested BP Systolic BP Type 78 L arm 124 sitting Fetus Heart Rate Present Fetus Movement A Yes Comments 38 y/o presents for OB f/u. She is 36 weeks and 3 days gestation. She reports cramping. Patient reports sharp pain on right side. Reports increased fluid and pressure. Discussed having a due to thinning of uterine scar. Last week the scar measured at 0.9 cm, thinner today. On pelvic exam patient was exquistitely tender on the scar area. Suspected impending rupture, patient will be sent to [facility] for repeat . Flowsheet Date 01/23/2024 Thomas Score Blood Edema Fundus Height Fundus Units Glucose Ketones Leukocytes Nitrite Labor Signs Protein Cervic Dilation Cervic Effacement Cervic Station Type Weight in lbs Pre/Post Dialysis Refused With clothes 179.87238641264 BP Diastolic BP Location Tested BP Systolic BP Type 82 L arm 126 sitting Fetus Heart Rate Present Fetus Movement Comments Menstrual History Last Menstrual Date Menses Monthly On Bcp Conception Prior Menses Frequency Hcg Plus Date Menarche Onset Age 1205/06/2023 Delivery Information Delivery Date Delivery Type Labor Anesthesia Weeks Gestation Incision Type Labor Labor Length Hrs Delivered By Post Complications Tubal Sterilization Discharge Date Comments 4 None [facility] 36.3 Low Transvers e true magdalene corina None false Discharge Information Feeding Method Contraceptive Method Maternal HG B and HCT Levels
--- OUTSIDE RECORDS SUMMARY | 2024-11-23 21:05 | XMS_ITS | Clinical Summary ---
Author Organization Healthcare Address [address] [place] [address] Care Team Providers [employer] Name Role Phone Unavailable Primary Care Provider Unavailabl e Allergies No known active allergies Social History Tobacco Use Types Packs/Day Years Used Date Smoking Tobacco: Never Assessed Comments Unknown Sex and Gender Information Value Date Recorded Sex Assigned at Not on file Legal Sex Female 7:33 PM EDT Gender Identity Not on file Sexual Orientation Not on file Last Filed Vital Signs Vital Sign Reading Time Taken Comments Blood Pressure 108/69 05/15/2023 2:33 PM EST Pulse 95 05/15/2023 2:33 PM EST Temperature 36.8 C (98.3 F) 05/15/2023 2:33 PM EST Respiratory Rate 14 05/15/2023 2:33 PM EST Oxygen Saturation 98% 05/15/2023 2:33 PM EST Inhaled Oxygen Concentration - - Weight 72.6 kg (160 lb) 05/15/2023 12:18 PM EST Height 167.6 cm (5' 6 ) 05/15/2023 12:18 PM EST Body Mass Index 25.82 05/15/2023 12:18 PM EST Plan of Treatment Health Maintenance Due Date Last Done Comments [facility]-Depression Screening 1987 [facility]-Infant/Child/Adol SDOH Screenings 1987 [facility]-Obesity Intervention 12/29/1993 [facility]-Varicella Vaccines (1 of 2 - 13+ 2-dose series) 12/29/2000 HPV Vaccines (1 - 3-dose series) 12/29/2002 [facility]- SDOH Screenings 12/29/2005 [facility]-Adult SDOH Screenings 12/29/2005 [facility]-DTaP,Tdap,and Td Vaccine s (1 - Tdap) 12/29/2006 [facility]-Hepatitis B Vaccines (1 of 3 - 19+ 3-dose series) 12/29/2006 [facility]-Pap Smear 12/29/2008 [facility]-Cervical Cancer Screening 12/29/2017 [facility]-HPV/Cotest 12/29/2017 [facility]-TVDVO-24 Vaccine ( season) 2024 09/19/2020, 08/19/2020 [facility]-Influenza Vaccine (Seaso n Ended) 2025 04/01/2017 [facility]-Zoster Vaccines (1 of 2) 12/29/2037 [facility]-HIV Screening Completed 05/15/2023 [facility]-Hepatitis C Screening Completed 05/15/2023 [facility]-HIB Vaccines Aged Out No longer e ligible based on patient's age to complete this topic [facility]-Hepatitis A Vaccines Aged Out No longer eligible based on patient's age to complete this topic [facility]-IPV Vaccines Aged Out No longer e ligible based on patient's age to complete this topic [facility]-Pneumococcal Vaccine: Pediatrics (0 to 5 Years) and At-Risk Patients (6 to 49 Years) Aged Out No longer eligible b ased on patient's age to complete this topic [facility]-Rotavirus Vaccines Aged Out No lo nger eligible based on patient's age to complete this topic Procedures Procedure Name Priority Date/Time Associated Diagnosis Comments HEPATITIS C ANTIBODY - ED W/REFLEX TO HCV QUANT PCR STAT 05/15/2023 12:38 PM EST ED HIV 1/2 ANTIBODY/ANTIGEN SCREEN WITH REFLEX TO HIV I/II DIFFERENTIATION STAT 05/15/2023 12:38 PM EST from Last 3 Months or Most Recently Relevant to Health Maintenance Results * ED HIV 1/2 Antibody/Antigen Screen w/Reflex to HIV 1/2 Differentiation (05/15/2023 12:38 PM EST) HIV 1 & 2 Antibody/Antigen Screen Non Reactive Non Reactive 05/15/2023 1:37 PM EST [facility] Comment:Screening for HIV 1 & 2 antibodies, and P24 antigen is NONREACTIVE. No confirmatory testing is required. Blood Venous blood specimen / Unknown Venipuncture / Unknown 05/15/2023 12:38 PM EST 05/15/2023 12:56 PM EST Antoinette Salas MD LAB BLOOD ORDERABLES Final Res ult [facility] [address] [place] [address] * Hepatitis C Antibody - ED (05/15/2023 12:38 PM EST) Hepatitis C Antibody Negative Negative 05/15/2023 1:37 PM EST [facility] Blood Venous blood specimen / Unknown Venipuncture / Unknown 05/15/2023 12:38 PM EST 05/15/2023 12:56 PM EST us Antoinette Salas MD LAB BLOOD ORDERABLES Final Res ult Performing Organization Address City/[facility] Co de Phone Number [facility]ALTHCARE [facility] [address] [place] [address] from Last 3 Months or Most Recently Relevant to Health Maintenance Insurance
--- OUTSIDE RECORDS SUMMARY | 2024-11-23 21:05 | XMS_ITS | Continuity of Care Document ---
Author Organization [facility] AIDEE ACUÑA MD Address [address] [facility] [address] [place] [address] Assessment Encounter Date Assessment Date Assessment LastModified by Organization Details LastModified Time 10/29/2024 10/29/2024 38 yo F presents for [...] None recorded. Lab pap, LB 2024 025 [facility] ([facility]), [address] [place] [address], [address], 16:12:52 HbA1c (hemoglobi n A1c), blood 2024 025 [facility] ([facility]), [address] [place], [address], 5 08:17:12 CMP, serum or plasma 2024 025 [facility] ([facility]), [address] [place] [address], [address], 5 08:17:09 CBC w/ auto diff 2024 025 [facility] [place] [facility] ([facility]), [address] [place] [address], [address], 5 08:17:08 TSH, serum or plasma 2024 025 [facility] ([facility]), [address] [place] [address], [address], 5 08:17:13 vitamin B12, serum 2024 025 [facility] ([facility]), [address] [place] [address], [address], 5 08:17:12 vitamin D, 25-hydroxy , total, serum 2024 025 [facility] ([facility]), [address] [place] [address], [address], 5 08:17:09 bacterial vaginosis + vaginitis panel, vaginal 2024 025 [facility] ([facility]), [address] [place] [address], [address], 5 16:12:53 testostero ne, total, serum 2024 025 [facility] ([facility]), [address] [place], [address], 5 08:17:10 dhea-sulfa te, serum 2024 025 [facility] ([facility]), [address] [place] [address], [address], 5 08:17:14 estradiol, serum 2024 025 [facility] ([facility]), [address] [place] [address], [address], 5 08:17:11 lh + FSH, serum 2024 025 [facility] ([facility]), [address] [place] [address], [address], 5 08:17:07 Referral None recorded. Procedures None recorded. Surgeries None recorded. Imaging None recorded. Medication Orders metformin ER 500 mg tablet,ext ended release 24 hr 2024 025 [facility], [address] [place] [address], [address], 5 11:07:57 Patient TargetsNo targets recorded. Patient InstructionsNo instructions recorded. Reason for Referral None Reported. Problems Name Problem SNOMED Code Status Onset Date Resolution Date Notes Provider Name and Address Organization Details Recorded Time History of SARS-CoV- 2 [id number] Completed 202007/28/2020 Aidee Acuña MD [address], [place], [address] , [facility] 2 10:34:58 Threatene d timria 11383446 Active 2022 [facility] 3 11:56:04 83050070 Completed 202301/23/2024 [facility] 4 12:02:10 Dysuria 13994254 Active 2023 [facility] 4 10:58:48 Gestation period, 5 weeks 07060140 Active [address], [place], [address] , [facility] 4 12:38:08 Gestation period, 6 weeks 23975796 Active [address], [place], [address] , [facility] 4 17:34:45 Gestation period, 8 weeks 66166443 Active [address], [place], [address] , [facility] 4 12:54:45 Gestation period, 12 weeks 15933152 Active [address], [place], [address] , [facility] 4 12:11:21 Gestation period, 16 weeks 19030648 Active [address], [place], [address] , [facility] 4 12:21:52 Gestation period, 21 weeks 41930434 Active [address], [place], [address] , [facility] 4 11:15:57 Gestation period, 24 weeks 560745884 Active [address], [place], [address] , [facility] 4 14:36:26 Gestation period, 27 weeks 96604857 Active [address], [place], [address] , [facility] 4 14:19:32 Gestation period, 28 weeks 47280918 Active [address], [place], [address] , [facility] 4 10:09:00 Gestation period, 31 weeks 26598888 Active [address], [place], [address] , [facility] 4 10:23:37 Gestation period, 33 weeks 36223446 Active [address], [place], [address] , [facility] 4 10:00:59 Problem Notes None recorded. Procedures Surgical History Date Name Laterality Status Provider Name and Address Organization Details Recorded Time 04/05/20 24 Endometrial Biopsy completed MD [address], [place], [address], [facility] 04/05/2024 15:18:55 04/05/20 24 Non-OB ULS completed MD [address], [place], [address], [facility] 04/05/2024 15:13:03 04/05/20 24 IUD Insertion completed MD [address], [place], [address], [facility] 04/05/2024 15:17:18 04/05/20 24 Paracervical Block completed Britany [facility] 04/05/2024 13:47:25 02/27/20 24 Other completed MD [address], [place], [address], [facility] 02/27/2024 10:57:07 01/12/20 24 Obstetrical Care completed MD [address], [place], [address], [facility] 01/12/2024 13:36:53 11/14/19 24 Injection completed [address], [place], [address], [facility] 11/14/2023 14:19:17 06/09/19 24 Confirmation completed MD [address], [place], [address], [facility] 06/09/2023 11:51:05 05/17/20 23 Follicular Scan completed MD [address], [place], [address], [facility] 05/17/2023 15:41:25 04/18/20 23 Follicular Scan completed MD [address], [place], [address], [facility] 04/18/2023 12:00:57 04/18/20 23 Injection completed MD [address], [place], [address], [facility] 04/18/2023 12:03:18 03/21/20 23 Follicular Scan completed MD [address], [place], [address], [facility] 03/21/2023 13:27:50 01/11/20 23 Non-OB ULS completed MD [address], [place], [address], [facility] 01/10/2023 10:14:20 05/11/20 22 Non-OB ULS completed MD [address], [place], [address], [facility] 05/11/2022 10:44:38 03/30/20 22 Date of Last Pap Smear completed [facility] 05/11/2022 09:56:43 05/30/19 13 Date of Last Mammogram completed Briannerakan [facility] 10/29/2024 09:51:04 Caesarean Section completed [facility]any [facility] 04/05/2024 13:52:02 Tubal Ligation completed [facility] 05/11/2022 09:55:48 Laparoscopy completed Aidee Acuña MD [address], [place], [address], [facility] 05/11/2022 10:36:43 hysteroscopy [...] Updated DateTime 10/29/2024 167.64 cm 26.5 kg/m2 46236.15 g 120 mm[Hg] 84 mm[Hg] [facility]ne [facility] 09:49:52 Social History Question Answer Notes LastModified by Organizat ion Details LastModified Time Tobacco Smoking Status Former Smoker quit 2016 [facility] 10/26/2023 09:13:18 Do You Use Protection During Sex? No [email or web address] Information not available 07/01/2023 What Is Your Relationship Status? [email or web address] Information not available 07/01/2023 Are You Sexually Active? Yes [email or web address] Information not available 07/01/2023 Sex: Female Functional Status Question Answer Note LastModified by Organizat ion Details LastModified Time Do you use any illicit or recreational drugs? No [email or web address] Information not available 07/01/2023 Do you or have you ever used any other forms of tobacco or nicotine? No [email or web address] Information not available 07/01/2023 What is your level of alcohol consumption? Occasional Information not available 07/01/2023 Mental Status None [...] SNOMED-CT Code Diagnosis ICD10 Code Diagnosis Note 10192 MD AIDEE Ramachandran MD [address] [place] [address] 10/29/2024 09:41:21 10/29/2024 11:01:23 Gynecologic examination 61238854 Z01.419 Drug therapy finding 309 456383 Z79.890 Multinodular goiter 2375 95237 E04.2 Inflammati on of cervix 37007498 N72 Polycystic ovary syndrome 247104073 E28.2 Health Concerns Section Related Observation LastModified by Organization Detai ls LastModified Time None Recorded Concern Status LastModified by Organization Details LastModified Time None Recorded Payers Encounter Date Sequence Insurance Name Policy Number Policy Gomez Covered Member ID Gomez Member ID Guarantor Name 10/29/2024 1 [employer] ([place] [id number] 3 Ophelia Ramirez [id number] Ophelia Ramirez Notes Date Note Type Note Provider Name and Address Organization Details Recorded Time 10/29/2024 text/html Pt is here for an annual exam. She states that she would like to be put back on Metformin. Pt states since she had her Mirena put in she doesn't have abnormal cycles, but she does have some spotting. She reports low libido, and abnormal hair loss. MD [address] , [place], [address], [facility] 10/29/2024 11:01:00 OBGyn Episode No OBEpisode recorded.
--- OUTSIDE RECORDS SUMMARY | 2024-11-23 21:05 | XMS_ITS | Referral Summary ---
Author Organization [facility] Address [address] [place] [address] Care Team Providers Care Linux Engineer Name Role Phone [facility] [place], Provider Not In The System Primary Care [...] 0 08/05/2022 PCOS (polycystic ovarian syndrome) Endometriosis Social History Tobacco Use Types Packs/Day Years Used Date Smoking Tobacco: Never Assessed Passive Smoke Exposure: Never Smokeless Tobacco: Never Tobacco Cessation:Counseling Given: Not Answered Comments:quit 2017 Alcohol Use Standard Drinks/Week Comments Not Currently 0 (1 standard drink = 0.6 oz pur e alcohol) [email or web address] [place] Depression Scale Answer Date Recorded [place] Depression Screening Total Score 4 01/17/2024 Last [...] living situation today? I have a [facility] place to live 01/16/2024 Think about the [...] Do you speak a language other than Salvadorean at [facility]? No 01/16/2024 Do you want help with [...] Mass Index 31.38 01/16/2024 4:50 PM EDT Functional Status * Are you deaf or do you have serious difficulty hearing? Answer Date of Assessment Author No 01/20/2024 7:59 PM CDT Irina Villalta RN * Are you blind or do you have serious difficulty seeing, even when wearing glasses? Answer Date of Assessment Author No 01/20/2024 7:59 PM CDT Irina Villalta RN * Do you have serious difficulty walking or climbing stairs? Answer Date of Assessment Author No 01/20/2024 7:59 PM CDT Irina Villalta RN * Do you have serious difficulty dressing or bathing? Answer Date of Assessment Author No 01/20/2024 7:59 PM CDT Irina Villalta RN * Because of a physical, mental, or emotional condition, do you have serious difficulty doing errandsalone such as visiting the doctor? Answer Date of Assessment Author No 01/20/2024 7:59 PM CDT Irina Villalta RN Mental Status * Because of a physical, mental, or emotional condition, do you have serious difficulty concentrating, remembering, or making decisions? (5 years old or older) Answer Entry Date Author No 01/20/2024 7:59 PM CDT Irina Villalta RN Plan of Treatment Not on file Medical Devices Implanted Type Area Electrician Marine Device Identifier Shelf Expiration Date Model / Serial / Lot Grafix Pl Prime 3x4 Cm [id number] - [id number] Implanted:Qty : 1 on 08/06/2022 by Aidee Acuña MD at [facility] IMPLANTS N/A: Pelvis [employer] 03/31/2024 [id number] / [id number] Insurance [employer] Advance Directives For more information, please contact: [phone] * Full Code (Latest Code Status on File) Date Activated Date Inactivated Comments 01/16/2024 3:21 PM 01/16/2024 9:45 PM * Full Code Date Activated Date Inactivated Comments 08/06/2022 6:15 AM 10/02/2022 11:50 AM * Full Code Date Activated Date Inactivated Comments 08/06/2022 5:16 AM 08/06/2022 6:15 AM Care Teams Linux Engineer Relationship Specialty Start Date End Date [facility] [place], Provider Not In The System, [place] [address] PCP - General 01/16/24
--- OUTSIDE RECORDS SUMMARY | 2024-11-23 21:05 | XMS_ITS | Data Portability ---
Author Organization [facility] [place] Mauro [place] CLOSED Address [address] [place] [address] Assessment No assessment recorded. Plan of Treatment Reminders Order Date Submit Date Provider Last Modified By Organization Details Last Modified Time Details Appointments None recorded. Lab bacterial vaginosis + vaginitis panel, vaginal 2020 [facility] [address] [place] [address], [address], 23:34:17 mycoplasma + ureaplasma DNA, unspecified specimen 2020 [facility] [address] [place] [address], [address], 23:34:17 prolactin, serum 2020 [facility], [address] [place] [address], [address], 14:05:27 CT + NG RNA, PCR, unspecified specimen 2020 021 [facility], [address] [place] [address], [address], 07:26:18 trichomonas vaginalis RNA, Pap vial 2020 [facility], [address] [place] [address], [address], 06/26/202 1 14:06:21 general health panel 2020 021 [facility], [address] [place] [address], [address], 1 11:45:47 cytology, vaginal/cer vical 2020 021 [facility], [address] [place] [address], [address], 1 11:32:48 HPV DNA, high-risk 2020 021 [facility], [address] [place] [address], [address], 1 08:22:38 urinalysis, dipstick, auto 2016 017 [facility], [address], [place], [address], 7 16:59:43 cytology, vaginal/cer vical 2016 017 arvind nd10 [facility], [address] [place] [address], [address], 7 16:10:47 HPV DNA, high-risk 2016 017 [facility], [address] [place] [address], [address], 7 15:47:37 CT + NG RNA, PCR, unspecified specimen 2016 017 [facility], [address] [place] [address], [address], 7 16:55:20 Referral gynecologis t referral - veloudis tubal reversal 2021 022 afontaine 1 Russ Robertson Jr, [address], [address], [place], [address], 2 08:51:01 Procedures None recorded. Surgeries None recorded. Imaging US, neck, soft tissue 2020 021 [facility], [address], [place], [address], 12:11:39 Medication Orders Vibramycin 100 mg capsule 2020 021 [facility], [address] [place], [address], 1 08:24:20 Flagyl 500 mg tablet 2020 021 [facility], [address] [place], [address], 1 08:24:25 ceftriaxone 500 mg solution for injection 2020 021 [facility], [address] [place], [address], 2 08:10:26 Linzess 72 mcg capsule 2017 018 [email or web address] [facility], [address] [place], [address], 1 08:53:41 Taytulla 1 mg-20 mcg (24)/75 mg (4) capsule 2016 017 [facility], [address] [place], [address], 8 08:44:18 Patient TargetsNo targets recorded. Patient Instructions Encounter Date Encounter Id Patient Instructions Last Modified By Organization Details Last Modified Time 02/17/2017 [id number] constipation: care instructions HELEN Not available 02/17/2017 17:35:40 endometriosis: care instructions HELEN Not available 02/17/2017 17:37:59 specimen collection & handling* Not available 02/17/2017 16:59:43 painful menstrua l cramps: care instructions HELEN Not available 02/17/2017 17:36:22 07/01/2017 [id number] Spent 10 total minutes with the patient today in counseling regarding information documented in my assessment and plan above. The time represents more than 50% of the encounter. 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 Referral for Hi story of tubal ligation veloudis tubal reversal Referring Physician: Kaykay Rosales, PROTECTIVE SERVICES CASE WORKER, Encounter Date: 11/24/2021 Results Created Date Observation Date Name Description Value Unit Range Abnormal Flag Note LastModifiedBy Organization Detail LastModifiedTime 02/18/20 17 02/17/2017 urina lysis , dipst ick, auto Unknown Analyte Yellow Not Available [address], [place], [address], 02/17/2017 14:11:37 02/18/20 17 02/17/2017 urina lysis , dipst ick, auto Unknown Analyte Hazy Not Available [address], [place], [address], 02/17/2017 14:11:37 02/18/20 17 02/17/2017 urina lysis , dipst ick, auto Unknown Analyte 1.020 Not Available [address], [place], [address], 02/17/2017 14:11:37 02/18/20 17 02/17/2017 urina lysis , dipst ick, auto Unknown Analyte 1.003 - 1.035 Not Available [address], [place], [address], 02/17/2017 14:11:37 02/18/20 17 02/17/2017 urina lysis , dipst ick, auto Unknown Analyte 6.0 Not Available [address], [place], [address], 02/17/2017 14:11:37 02/18/20 17 02/17/2017 urina lysis , dipst ick, auto Unknown Analyte 5.0 - 8.0 Not Available [address], [place], [address], 02/17/2017 14:11:37 02/18/20 17 02/17/2017 urina lysis , dipst ick, auto Unknown Analyte 75 Kenia/ul (+) Not Available [address], [place], [address], 02/17/2017 14:11:37 02/18/20 17 02/17/2017 urina lysis , dipst ick, auto Unknown Analyte Negati ve Not Available [address], [place], [address], 02/17/2017 14:11:37 02/18/20 17 02/17/2017 urina lysis , dipst ick, auto Unknown Analyte Negati ve Not Available [address], [place], [address], 02/17/2017 14:11:37 02/18/20 17 02/17/2017 urina lysis , dipst ick, auto Unknown Analyte Negati ve Not Available [address], [place], [address], 02/17/2017 14:11:37 02/18/20 17 02/17/2017 urina lysis , dipst ick, auto Unknown Analyte Negtiv e Not Available [address], [place], [address], 02/17/2017 14:11:37 02/18/20 17 02/17/2017 urina lysis , dipst ick, auto Unknown Analyte Negati ve - Trace Not Available [address], [place], [address], 02/17/2017 14:11:37 02/18/20 17 02/17/2017 urina lysis , dipst ick, auto Unknown Analyte Normal Not Available [address], [place], [address], 02/17/2017 14:11:37 02/18/20 17 02/17/2017 urina lysis , dipst ick, auto Unknown Analyte Normal Not Available [address], [place], [address], 02/17/2017 14:11:37 02/18/20 17 02/17/2017 urina lysis , dipst ick, auto Unknown Analyte Negati ve Not Available [address], [place], [address], 02/17/2017 14:11:37 02/18/20 17 02/17/2017 urina lysis , dipst ick, auto Unknown Analyte Negati ve Not Available [address], [place], [address], 02/17/2017 14:11:37 02/18/20 17 02/17/2017 urina lysis , dipst ick, auto Unknown Analyte Normal Not Available [address], [place], [address], 02/17/2017 14:11:37 02/18/20 17 02/17/2017 urina lysis , dipst ick, auto Unknown Analyte Normal - 1mg/dl Not Available [address], [place], [address], 02/17/2017 14:11:37 02/18/20 17 02/17/2017 urina lysis , dipst ick, auto Unknown Analyte 1 mg/dl (+) Not Available [address], [place], [address], 02/17/2017 14:11:37 02/18/20 17 02/17/2017 urina lysis , dipst ick, auto Unknown Analyte Negati ve Not Available [address], [place], [address], 02/17/2017 14:11:37 02/18/20 17 02/17/2017 urina lysis , dipst ick, auto Unknown Analyte Negati ve Not Available [address], [place], [address], 02/17/2017 14:11:37 02/18/20 17 02/17/2017 urina lysis , dipst ick, auto Unknown Analyte Negati ve Not Available [address], [place], [address], 02/17/2017 14:11:37 02/18/20 17 02/17/2017 urina lysis , dipst ick, auto Unknown Analyte Clean Catch Not Available [address], [place], [address], 02/17/2017 14:11:37 02/18/20 17 02/17/2017 urina lysis , dipst ick, auto Unknown Analyte Automa jennifer Not Available [address], [place], [address], 02/17/2017 14:11:37 02/18/20 17 02/17/2017 speci men colle ction & handl ing* Pap smear collection performed. 7 Not Available [address] [place] [address], [address], 02/17/2017 13:50:12 02/18/20 17 02/21/2017 CT + NG RNA, PCR, unspe cifie d speci men chlamydia trachomatis NOT DETECT ED not detect ed normal Not Available [facility] [address] [place] [address], [address], 02/21/2017 16:55:19 02/18/20 17 02/21/2017 CT + NG RNA, PCR, unspe cifie d speci men N. gonorrhoeae NOT DETECT ED not detect ed normal Not Available [facility] [address] [place] [address], [address], 02/21/2017 16:55:19 02/18/20 17 02/21/2017 CT + NG RNA, PCR, unspe cifie d speci men comment SEE BELOW normal This test was perfo rmed using the APTIM A COMBO 2 Assay ([employer] . The maty tical perfo rmanc e franklin cteri stics of this assay , when used to test SureP ath speci mens have been deter mined by [employer] [facility] juan antonio schulte. TEST PERFO RMED AT: [facility] [address] [phone] JEFFERY Schulte MD Not Available [facility] [address] [place], [address], 02/21/2017 16:55:19 02/18/20 17 02/22/2017 HPV DNA, high- risk high risk HPV Not Detect ed not detect ed normal This test was perfo rmed using the APTIM A HPV Assay ([employer] . This assay detec ts E6/E7 viral messe nger RNA (mRNA ) from 14 high- risk HPV types (16,1 8,31, 33,35 ,39,4 5,51, 52,56 ,58,5 9,66, 68). TEST PERFO RMED AT: [facility] [address] [place] [address] JEFFERY Schulte MD Not Available [facility] [address] [place], [address], 02/22/2017 15:47:37 02/18/20 17 02/17/2017 cytol ogy, vagin al/ce rvica l gynecologica l cytology procedure SEE BELOW [facility] Depar tment of Patho logy GYNEC OLOGI CESAR CYTOL OGY REPOR T NAME: SHA MEJIA ANY PATHO LOGY NO.: [id number] Copy to: [facility] E OF SPECI MEN: CERVI CESAR/E NDOCE RVICA L-THI N PREP RELEV ANT HISTO RY: LMP: 01/24 Contr acept surendra: BTL Comme nt: HPV CO-TE STING SPECI MEN ADEQU ACY SATIS FACTO RY FOR EVALU ATION . ENDOC ERVIC AL/TR ANSFO RMATI ON ZONE COMPO NENT PRESE NT PARTI ALLY OBSCU RING INFLA MMATI ON GENER AL CATEG ORIZA TION NEGAT SURENDRA FOR INTRA EPITH ELIAL LESIO N OR MALIG CASPER COMME NT: SPECI MEN REFER RED FOR ADDIT IONAL TESTI NG KELLI PATEL RD, CT( CP) Nikia d Out Date: 02/24 16:25 Cervi cesar/v agina l cytol ogy is a scree chepe test with a recog nized false negat surendra rate. New techn ologi es may decre ase, but will not elimi zenia false negat surendra resul ts. Regul ar cytol ogy scree chepe is recom paulino d to minim ize false negat surendra resul ts. The ThinP rep(R ) Imagi ng syste m is used to shivam t in prima ry cervi cesar cance r scree chepe of ThinP rep(R ) Pap test slide s. 1 Not Available [facility] [address] [place], [address], 02/24/2017 16:27:04 11/20/19 21 11/19/2020 gener al healt h panel glucose 105 mg/dL 74-100 high Not Available [facility] [address] [place] [address], [address], 11/19/2020 14:17:24 11/20/19 21 11/19/2020 gener al healt h panel blood urea nitrogen 8 mg/dL 6-20 normal Not Available [facility] [address] [place] [address], [address], 11/19/2020 14:17:24 11/20/19 21 11/19/2020 gener al healt h panel creatinine 0.55 mg/dL 0.50-0 .95 normal Not Available [facility] [address] [place] [address], [address], 11/19/2020 14:17:24 11/20/19 21 11/19/2020 gener al healt h panel BUN/creatini ne ratio 15 (calc ) 10-20 normal Not Available [facility] [address] [place] [address], [address], 11/19/2020 14:17:24 11/20/19 21 11/19/2020 gener al healt h panel sodium 140 mmol/ L 136-14 5 normal Not Available [facility] [address] [place] [address], [address], 11/19/2020 14:17:24 11/20/19 21 11/19/2020 gener al healt h panel potassium 3.9 mmol/ L 3.4-5. 0 normal Not Available [facility] [address] [place] [address], [address], 11/19/2020 14:17:24 11/20/19 21 11/19/2020 gener al healt h panel chloride 104 mmol/ L 98-107 normal Not Available [facility] [address] [place] [address], [address], 11/19/2020 14:17:24 11/20/19 21 11/19/2020 gener al healt h panel carbon dioxide 25 mmol/ L 22-31 normal Not Available [facility] [address] [place] [address], [address], 11/19/2020 14:17:24 11/20/19 21 11/19/2020 gener al healt h panel anion gap 11 (calc ) 7-25 normal Not Available [facility] [address] [place] [address], [address], 11/19/2020 14:17:24 11/20/19 21 11/19/2020 gener al healt h panel calcium 9.2 mg/dL 8.6-10 .2 normal Not Available [facility] [address] [place] [address], [address], 11/19/2020 14:17:24 11/20/19 21 11/19/2020 gener al healt h panel total protein 7.0 g/dL 6.4-8. 3 normal Not Available [facility] [address] [place] [address], [address], 11/19/2020 14:17:24 11/20/19 21 11/19/2020 gener al healt h panel albumin 4.4 g/dL 3.5-5. 2 normal Not Available [facility] [address] [place] [address], [address], 11/19/2020 14:17:24 11/20/19 21 11/19/2020 gener al healt h panel globulin 2.6 g/dL_ (calc ) 1.5-4. 5 normal Not Available [facility] [address] [place] [address], [address], 11/19/2020 14:17:24 11/20/19 21 11/19/2020 gener al healt h panel albumin/glob ulin ratio 1.7 (calc ) 1.1-2. 5 normal Not Available [facility] [address] [place] [address], [address], 11/19/2020 14:17:24 11/20/19 21 11/19/2020 gener al healt h panel bilirubin, total 0.4 mg/dL 0.1-1. 2 normal Not Available [facility] [address] [place] [address], [address], 11/19/2020 14:17:24 11/20/19 21 11/19/2020 gener al healt h panel alkaline phosphatase 58 U/L 35-106 normal Not Available [facility] [address] [place] [address], [address], 11/19/2020 14:17:24 11/20/19 21 11/19/2020 gener al healt h panel AST 12 U/L 0-32 normal Not Available [facility] [address] [place] [address], [address], 11/19/2020 14:17:24 11/20/19 21 11/19/2020 gener al healt h panel ALT 8 U/L 0-33 normal Not Available [facility] [address] [place] [address], [address], 11/19/2020 14:17:24 11/20/19 21 11/19/2020 gener al healt h panel GFR 143 >= 60 normal Not Available [facility] [address] [place] [address], [address], 11/19/2020 14:17:24 11/20/19 21 11/19/2020 gener al healt h panel GFR non- 123 >= 60 normal NOT E Chron ic kidne y disea se is defin ed as kidne y damag e for more than 3 month s or a GFR less than 60 mL/mi n/1.7 3 m2 for great er than 3 month s. This calcu latio n has not been valid ated in pregn ant women . For pedia tric patie nts refer to Natio nal Kidne y Found ation https ://sabas w.jovanni borrero.o rg/pr ofess ional s/KDO QI/gf r_cal culat orPed Not Available [facility] [address] [place] [address], [address], 11/19/2020 14:17:24 11/20/19 21 11/19/2020 gener al healt h panel white blood cells 5.7 K/uL 3.8-10 .8 normal Not Available [facility] [address] [place] [address], [address], 11/19/2020 14:17:24 11/20/19 21 11/19/2020 gener al healt h panel red blood cells 4.21 M/uL 3.80-5 .20 normal Not Available [facility] [address] [place] [address], [address], 11/19/2020 14:17:24 11/20/19 21 11/19/2020 gener al healt h panel hemoglobin 13.7 g/dL 12.0-1 6.0 normal Not Available [facility] [address] [place] [address], [address], 11/19/2020 14:17:24 11/20/19 21 11/19/2020 gener al healt h panel hematocrit 39.2 % 35.0-4 7.0 normal Not Available [facility] [address] [place] [address], [address], 11/19/2020 14:17:24 11/20/19 21 11/19/2020 gener al healt h panel MCV 93 fL 80-100 normal Not Available [facility] [address] [place] [address], [address], 11/19/2020 14:17:24 11/20/19 21 11/19/2020 gener al healt h panel MCH 33 pg 26-35 normal Not Available [facility] [address] [place] [address], [address], 11/19/2020 14:17:24 11/20/19 21 11/19/2020 gener al healt h panel MCHC 35 g/dL 32-36 normal Not Available [facility] [address] [place] [address], [address], 11/19/2020 14:17:24 11/20/19 21 11/19/2020 gener al healt h panel RDW 12.4 % 11.0-1 5.0 normal Not Available [facility] [address] [place] [address], [address], 11/19/2020 14:17:24 11/20/19 21 11/19/2020 gener al healt h panel MPV 7.9 fL 6.2-10 .5 normal Not Available [facility] [address] [place] [address], [address], 11/19/2020 14:17:24 11/20/19 21 11/19/2020 gener al healt h panel platelet count 275 K/uL 130-40 0 normal Not Available [facility] [address] [place] [address], [address], 11/19/2020 14:17:24 11/20/19 21 11/19/2020 gener al healt h panel neutrophil,a bsolute 3.2 K/uL 1.6-8. 4 normal Not Available [facility] [address] [place] [address], [address], 11/19/2020 14:17:24 11/20/19 21 11/19/2020 gener al healt h panel lymphocyte,a bsolute 2.0 K/uL 0.4-5. 1 normal Not Available [facility] [address] [place] [address], [address], 11/19/2020 14:17:24 11/20/19 21 11/19/2020 gener al healt h panel monocyte,abs olute 0.4 K/uL 0.0-1. 2 normal Not Available [facility] [address] [place] [address], [address], 11/19/2020 14:17:24 11/20/19 21 11/19/2020 gener al healt h panel eosinophil,a bsolute 0.0 K/uL 0.0-0. 8 normal Not Available [facility] [address] [place] [address], [address], 11/19/2020 14:17:24 11/20/19 21 11/19/2020 gener al healt h panel basophil,abs olute 0.0 K/uL 0.0-0. 3 normal Not Available [facility] [address] [place] [address], [address], 11/19/2020 14:17:24 11/20/19 21 11/19/2020 gener al healt h panel % neutrophils 57.1 % 42.0-7 8.0 normal Not Available [facility] [address] [place] [address], [address], 11/19/2020 14:17:24 11/20/19 21 11/19/2020 gener al healt h panel % lymphocytes 35.3 % 11.0-4 7.0 normal Not Available [facility] [address] [place] [address], [address], 11/19/2020 14:17:24 11/20/19 21 11/19/2020 gener al healt h panel % monocytes 6.9 % 0.0-11 .0 normal Not Available [facility] [address] [place] [address], [address], 11/19/2020 14:17:24 11/20/19 21 11/19/2020 gener al healt h panel % eosinophils 0.6 % 0.0-7. 0 normal Not Available [facility] [address] [place] [address], [address], 11/19/2020 14:17:24 11/20/19 21 11/19/2020 gener al healt h panel % basophils 0.1 % 0.0-3. 0 normal Not Available [facility] [address] [place] [address], [address], 11/19/2020 14:17:24 11/20/19 21 11/19/2020 gener al healt h panel nucleated red cells 0.1 % 0.0-0. 9 normal Not Available [facility] [address] [place] [address], [address], 11/19/2020 14:17:24 11/20/19 21 11/19/2020 gener al healt h panel nucleated RBCs, absolute 0.01 K/uL not estab. normal Not Available [facility] [address] [place] [address], [address], 11/19/2020 14:17:24 11/20/19 21 11/19/2020 gener al healt h panel TSH 2.060 uIU/m L 0.270- 4.200 normal Not Available [facility] [address] [place] [address], [address], 11/19/2020 14:17:24 11/20/19 21 11/19/2020 prola ctin, serum prolactin 8.17 NG/mL 4.79-2 3.30 normal Refer ence range is based on non-p regna nt women . Not Available [facility] [address] [place] [address], [address], 11/19/2020 14:05:27 11/20/19 21 11/22/2020 CHLAM YDIA/ GC, RNA chlamydia trachomatis NOT DETECT ED not detect ed normal Not Available [facility] [address] [place] [address], [address], 11/22/2020 07:26:18 11/20/19 21 11/22/2020 CHLAM YDIA/ GC, RNA N. gonorrhoeae NOT DETECT ED not detect ed normal Not Available [facility] [address] [place] [address], [address], 11/22/2020 07:26:18 11/20/19 21 11/22/2020 CHLAM YDIA/ GC, RNA comment SEE BELOW normal The maty tical perfo rmanc e franklin cteri stics of this assay , when used to test SureP ath(T M) speci mens have been deter mined by [facility]. The modif icati ons have not been clear ed or appro chandler by the FDA. This assay has been valid ated pursu ant to the CLIA regul ation s and is used for clini cesar purpo ses. For addit ional infor nura mancia e refer to https ://ed ucati on.qu estdi agnTripteases. com/f aq/FA Q154 (This link is being provi ded for infor deana n/ educa anahi l purpo ses only. ) TEST PERFO RMED AT: [facility] - [address] [phone] JEFFERY Schulte MD Not Available [address], [address], 11/22/2020 07:26:18 11/20/19 21 11/22/2020 TRICH OMONA S VAGIN ALBERTO, PAP trichomonas vaginalis NOT DETECT ED not detect ed normal The maty tical perfo rmanc e franklin cteri stics of this assay have been deter mined by [facility]. The modif icati ons have not been clear ed or appro chandler by the FDA. This assay has been valid ated pursu ant to the CLIA regul ation s and is used for clini cesar purpo ses. For addit ional infor nura mancia e refer to http: //benton frazier stdia gnost ics.c om/ faq/T abel wilson (This link is being provi ded for infor matio n/ educa anahi l purpo ses only. ) TEST PERFO RMED AT: [facility] [address] [phone] JEFFERY Schulte MD Not Available [facility] [address] [place], [address], 11/22/2020 14:06:21 11/20/19 21 11/23/2020 HPV, HIGH RISK high risk HPV Not Detect ed not detect ed normal Metho dolog y: Trans cript ion-M ediat ed Ampli ficat ion This assay detec ts E6/E7 viral messe nger RNA (mRNA ) from 14 high- risk HPV types (16,1 8,31, 33,35 ,39,4 5,51, 52,56 ,58,5 9,66, 68). The maty tical perfo rmanc e franklin cteri stics of this assay have been deter mined by [facility] juan antonio s. The modif icati ons have not been clear ed or appro chandler by the FDA. This assay has been valid ated pursu ant to the CLIA regul ation s and is used for clini cesar purpo ses. For addit ional infor nura mancia e refer to http: //[facility] ezra bledsoe.que stdia gnost ics.c om/fa q/FAQ 129v1 (This link if provi ded for infor deana bledsoe/ educjavon christian l purpo ses only. ) TEST PERFO RMED AT: [facility] [address] [phone] JEFFERY Schulte MD Not Available [facility] [place], [address], 11/24/2020 08:22:38 11/20/19 21 11/19/2020 PAP SMEAR Pap smear SEE BELOW Depar tment of Patho logy GYNEC OLOGI CESAR CYTOL OGY REPOR T NAME: SHA MEJIA ANY PATHO LOGY NO.: [id number] Copy to: S[facility]C E OF SPECI MEN: CERVI CESAR/E NDOCE RVICA L-THI N PREP RELEV ANT HISTO RY: No LMP given . Comme nt: HPV CO-TE STING SPECI MEN ADEQU ACY SATIS FACTO RY FOR EVALU ATION . ENDOC ERVIC AL/TR ANSFO RMATI ON ZONE COMPO NENT PRESE NT GENER AL CATEG ORIZA TION NEGAT SURENDRA FOR INTRA EPITH ELIAL LESIO N OR [facility] RESUL TS Test Name Resul t Colle cted D and T HIGH RISK HPV Not Detec jennifer 2020 9:34 PATIENCE A L DINGE SS, CT (ASCP ) Nikia d Out Date: 11/24 11:31 Cervi ceasr/v agina l cytol ogy is a scree chepe test with a recog nized false negat surendra rate. New techn ologi es may decre ase, but will not elimi zenia false negat surendra resul ts. Regul ar cytol ogy scree chepe is recom paulino d to minim ize false negat surendra resul ts. The ThinP rep(R ) Imagi ng syste m is used to shivam t in prima ry cervi cesar cance r scree chepe of ThinP rep(R ) Pap test slide s. Page 1 of 1 Not Available [facility] [address] [place] [address], [phone], 11/24/2020 11:32:48 12/04/19 21 12/07/2020 UROGE NITAL MYCOP LASMA & UREAP LASMA PANEL mycoplasma hominis by real-time PCR NEGATI VE normal Swab- 1 Vag/C erv Not Available [facility] [address] [place] [address], [id number], 12/08/2020 23:34:16 12/04/19 21 12/07/2020 UROGE NITAL MYCOP LASMA & UREAP LASMA PANEL ureaplasma urealyticum by real-time PCR (reflex to fluoroquinol one resistance) NEGATI VE normal Swab- 1 Vag/C erv Not Available [facility] [address] [place] [address], [id number], 12/08/2020 23:34:16 12/04/19 21 12/08/2020 UROGE NITAL MYCOP LASMA & UREAP LASMA PANEL mycoplasma genitalium by real-time PCR (reflex to azithromycin and fluoroquinol one resistance) NEGATI VE normal Swab- 1 Vag/C erv Not Available [facility] [address] [place] [address], [id number], 12/08/2020 23:34:16 12/04/19 21 12/07/2020 AEROB IC VAGIN ITIS PANEL (GBS S. AUREU S E.COL I E. FAECA LIS group B streptococcu s (gbs) by real-time PCR NEGATI VE normal Swab- 1 Vag/C erv Not Available [facility] [address] [place] [address], [id number], 12/08/2020 23:34:17 12/04/19 21 12/07/2020 AEROB IC VAGIN ITIS PANEL (GBS S. AUREU S E.COL I E. FAECA LIS lactobacillu s (bv & av panel) by real time PCR SEE COMMEN T normal Swab- 1 Vag/C erv L.cri spatu s: Negat surendra L.valentina senii : Posit surendra L.gas seri : Negat surendra L.ine rs : Posit surendra. Not Available [facility] [address] [place] [address], [id number], 12/08/2020 23:34:17 12/04/19 21 12/07/2020 AEROB IC VAGIN ITIS PANEL (GBS S. AUREU S E.COL I E. FAECA LIS staphylococc us aureus by real time PCR NEGATI VE normal Swab- 1 Vag/C erv Not Available [facility] [address] [place] [address], [id number], 12/08/2020 23:34:17 12/04/19 21 12/08/2020 AEROB IC VAGIN ITIS PANEL (GBS S. AUREU S E.COL I E. FAECA LIS escherichia coli by real-time PCR NEGATI VE normal Swab- 1 Vag/C erv Not Available [facility] [address] [place] [address], [address], 12/08/2020 23:34:17 12/04/19 21 12/08/2020 AEROB IC VAGIN ITIS PANEL (GBS S. AUREU S E.COL I E. FAECA LIS enterococcus faecalis by real-time PCR NEGATI VE normal Swab- 1 Vag/C erv Not Available [facility] ([facility]) [address] [facility], [place], [address], 12/08/2020 23:34:17 11/25/19 21 11/24/2020 US, neck, soft tissu e Anai donohue [address] [place] [address] Bnenett guerra Name: ABNER guerra : [birth year] Bennett guerra Orderi ng Provid er: JULIOCESAR Woo [facility] EXAM DATE: 2020 EXAM: US ECHO THYROI D OR PAROTI D CLINIC AL INFORM ATION: Goiter TECHNI QUE: Multip le sonogr aphic images of the thyroi d gland were obtain ed. COMPAR RUSS: None. FINDIN GS: Isthmu s measur es 0.3 cm in thickn ess. Right lobe measur es 4.5 x 1.2 x 1.8 cm. Left lobe measur es 4.1 x 0.9 x 1.6 cm. The gland is normal in size and homoge neous in echote xture. Bilate ral colloi d cysts are seen. The domina nt cyst on the right measur es 10 x 6 x 8 mm. The domina nt cyst on the left measur es 8 x 4 x 6 mm. IMPRES DANISHA: Bilate ral colloi d cysts in the thyroi d gland. No clinic al signif icance . There is no indica tion for FNA. Interp reted By: Cricket Nesbitt MD Electr onical ly Signed By: Cricket Nesbitt MD on 021 12:06 PM [facility] [address] , [place], [address], 11/25/2020 10:16:35 Result Notes None recorded. Problems Name Problem SNOMED Code Status Onset Date Resolution Date Notes Provider Name and Address Organization Details Recorded Time SNOMED CT Concept Active 016 From Automated Load;Provi tristen: Kevan Gómez tatus: Active Not Available [facility] 6 08:10:54 Problem Notes None recorded. Procedures Surgical History Date Name Laterality Status Provider Name and Address Organization Details Recorded Time 11/20/19 21 Pap Smear collection completed LAURENCE GÓMEZ, APPLIER [address] [place], [address], [facility] 11/19/2020 09:23:30 11/20/19 21 Date of Last Pap Smear completed Nitza Jim [facility] 11/24/2021 08:12:34 02/18/20 17 Pap Smear collection completed JOSLYN PEREIRA MD [address] [place], [address], [facility] 02/19/2017 13:49:41 12/22/19 17 LAPAROSCOPY, DIAGNOSTIC (SURG) completed JOSLYN PEREIRA MD [address] [place], [address], [facility] 12/28/2016 23:26:53 12/22/19 17 LAPAROSCOPY, DIAGNOSTIC (SURG) completed Not Available [facility] 01/04/2017 10:29:49 Breast Surgery completed [facility] 11/01/2016 14:03:44 Tubal Ligation completed Glenis Garcia [facility] 11/01/2016 14:04:03 Removal of tonsils completed Glenis Garcia [facility] 11/01/2016 14:04:11 Caesarean Section completed Annie Cooper [facility] 01/03/2017 08:21:18 Imaging Results None recorded. Procedure Notes None recorded. Medical Equipment None Reported. Allergies Allergen ID Allergen Name Allergen Category Reaction Reaction Severity Criticality Documentation Date Start Date Code Code System Note Provider Name and Address Organization Details Recorded Time 760910 Ultracet medicatio n Not available Not available Not available 04/23/20162007 27169 2 RxNorm Comme nt: Creat ed By: King Kristen rosario Date: 2007 5:00: 43 PM; Not Available [facility] 6 03:55:33 026092 Macrobid medicatio n Not available Not available Not available 04/23/20162007 97162 1 RxNorm Comme nt: Creat ed By: King Kristen orellanaCre ated Date: 2007 5:01: 00 PM; Not Available [facility] 6 08:50:02 Medications Name Sig Start Date Stop Date Status Note LastModified by Organization Details LastModified Time Prescript ion - Prior Authoriza tion Request 01/03 completed Not Available Not Available Not Available amoxicill in 500 mg capsule 07/01 completed Not Available Not Available Not Available cefprozil 500 mg tablet 01/03 completed Not Available Not Available Not Available prednison e 10 mg tablet 07/01 completed Not Available Not Available Not Available doxycycli ne hyclate 100 mg capsule TAKE 1 CAPSULE BY MOUTH 2 TIMES A DAY FOR 7 DAYS 12/03 completed Not Available Not Available Not Available trazodone 50 mg tablet 07/01 completed Not Available Not Available Not Available azithromy mee 250 mg tablet 07/01 completed Not Available Not Available Not Available ibuprofen 800 mg tablet 11/19 completed Not Available Not Available Not Available promethaz ine 12.5 mg tablet 07/01 completed Not Available Not Available Not Available phenazopy ridine 200 mg tablet 01/03 completed Not Available Not Available Not Available ondansetr on HCl 4 mg tablet 11/19 completed Not Available Not Available Not Available prednison e 20 mg tablet TAKE 3 TABLETS BY MOUTH DAILY FOR 7 DAYS, 2 TABS FOR 7 DAYS, 1 TAB FOR 7 DAYS, THEN 1/2 TAB 7 DAYS 11/19 completed Not Available Not Available Not Available sertralin e 100 mg tablet Daily 11/19 completed Not Available Not Available Not Available olanzapin e 5 mg tablet 07/01 completed Not Available Not Available Not Available promethaz ine 6.25 mg-codein e 10 mg/5 mL syrup 07/01 completed Not Available Not Available Not Available metronida zole 500 mg tablet TAKE 1 TABLET BY MOUTH 2 TIMES A DAY FOR 7 DAYS 12/03 completed Not Available Not Available Not Available hydroxyzi ne HCl 50 mg tablet 01/03 completed Not Available Not Available Not Available ciproflox acin 500 mg tablet 01/03 completed Not Available Not Available Not Available ondansetr on 8 mg disintegr ating tablet TAKE 1 TABLET BY MOUTH THREE TIMES A DAY NEEDED FOR NAUSEA 11/24 completed Not Available Not Available Not Available oxycodone -acetamin ophen 5 mg-325 mg tablet 01/03 completed Not Available Not Available Not Available benzonata te 100 mg capsule 01/03 completed Not Available Not Available Not Available hydrocodo ne 7.5 mg-acetam inophen 325 mg tablet 01/03 completed Not Available Not Available Not Available erythromy mee 5 mg/gram (0.5 %) eye ointment 07/01 completed Not Available Not Available Not Available promethaz ine 25 mg tablet Take 1 tablet as needed by oral route for 5 days. 02/17 completed Not Available Not Available Not Available hydroxyzi ne HCl 25 mg tablet TAKE 1/2 1 ORAL TABLET 3 TIMES A DAY NEEDED FOR ANXIETY 11/24 completed Not Available Not Available Not Available ceftriaxo ne 500 mg solution for injection Take 500 mg by injectio n route. 11/24 completed Not Available Not Available Not Available ibuprofen 600 mg tablet 01/03 completed Not Available Not Available Not Available brompheni ramine-ps eudoephed rine-DM 2 mg-30 mg-10 mg/5 mL oral syrup TAKE 5-10 ML BY MOUTH EVERY 4-6 HOURS NEEDED FOR COLD AND COUGH SYMPTOMS 11/24 completed Not Available Not Available Not Available ondansetr on 4 mg disintegr ating tablet 01/03 completed Not Available Not Available Not Available fluticaso ne propionat e 50 mcg/actua tion nasal spray,kaye pension 01/03 completed Not Available Not Available Not Available amoxicill in 875 mg-potass ium clavulana te 125 mg tablet 07/01 completed Not Available Not Available Not Available Ventolin HFA 90 mcg/actua tion aerosol inhaler 11/19 completed Not Available Not Available Not Available Kariva (28) 0.15 mg-0.02 mg (21)/0.01 mg (5) tablet TAKE 1 TABLET BY MOUTH EVERY DAY 11/24 completed Not Available Not Available Not Available azithromy mee 500 mg tablet Take 2 tablets by oral route. 01/03 completed Not Available Not Available Not Available escitalop tierney 10 mg tablet TAKE 1 TABLET BY MOUTH EVERY DAY 11/19 completed Not Available Not Available Not Available Allergy Relief (loratadi ne) 10 mg tablet 01/03 completed Not Available Not Available Not Available Vitamin Daily 11/01 completed Frequenc y: daily;Me dication Descript ion: multivit jade, ; Dosage:a s directed ; Route:or al; refills: 0 Not Available Not Available Not Available Amitiza 8 mcg capsule 01/03 completed Ins will not approved until pt has tried and failed two lower cost(lac tulose and miralax) Not Available Not Available Not Available Taytulla 1 mg-20 mcg (24)/75 mg (4) capsule TAKE ONE CAPSULE BY MOUTH EVERY DAY 07/01 completed Not Available Not Available Not Available Linzess 72 mcg capsule Take 1 capsule every day by oral route for 90 days. 11/19 completed Not Available Not Available Not Available Trulance 3 mg tablet Take 1 tablet every day by oral route for 30 days. 07/01 completed Not Available Not Available Not Available Vitals Date Recorded Body height Body mass index (BMI) Body weight Systolic blood pressure Diastolic blood pressure Provider Name and Address Organization Details Last Updated DateTime 07/01/2017 167.64 cm 25.2 kg/m2 12786.41 g 98 mm[Hg] 52 mm[Hg] Nitza Jim [facility] 8 08:46:29 Date Recorded Body height Body mass index (BMI) Body weight Systolic blood pressure Diastolic blood pressure Provider Name and Address Organization Details Last Updated DateTime 11/19/2020 167.64 cm 24.7 kg/m2 23782.63 g 112 mm[Hg] 72 mm[Hg] Glenis Garcia [facility] 1 08:52:41 Date Recorded Body height Body mass index (BMI) Body weight Systolic blood pressure Diastolic blood pressure Provider Name and Address Organization Details Last Updated DateTime 11/24/2021 167.64 cm 23.9 kg/m2 85040.67 g 102 mm[Hg] 64 mm[Hg] Nitza Jim [facility] 2 08:11:54 Date Recorded Body height Body mass index (BMI) Body weight Systolic blood pressure Diastolic blood pressure Provider Name and Address Organization Details Last Updated DateTime 12/03/2020 167.64 cm 24.1 kg/m2 27454.06 g 100 mm[Hg] 68 mm[Hg] Alexa Ring [facility] 1 08:23:54 Date Recorded Body height Body mass index (BMI) Body weight Systolic blood pressure Diastolic blood pressure Provider Name and Address Organization Details Last Updated DateTime 02/17/2017 167.64 cm 23.8 kg/m2 65933.52 g 100 mm[Hg] 68 mm[Hg] Gladys Watson [facility] 7 13:45:47 Social History Question Answer Notes LastModified by NGRAIN ion Details LastModified Time Tobacco Smoking Status [facility]/03/2017 08:21:02 What Is Your Level Of Caffeine Consumption? Moderate Information not available 07/01/2017 How Much Tobacco Do You Chew? None [email or web address] Information not available 11/19/2020 What Was The Date Of Your Most Recent Tobacco Screening? 11/24/2021 Information not available 11/24/2021 Has Tobacco Cessation Counseling Been Provided? Yes Information not available 11/24/2021 On What Date Was Tobacco Cessation Counseling Provided? 11/24/2021 Information not available 11/24/2021 Sex: Unknown Functional Status Question Answer Note LastModified by Organizat ion Details LastModified Time Do you or have you ever used any other forms of tobacco or nicotine? No Information not available 11/24/2021 What is your level of alcohol consumption? None Information not available 07/01/2017 Do you or have you ever used smokeless tobacco? Never used smokeless tobacco [email or web address] Information not available 11/19/2020 Do you or have you ever used e-cigarettes or vape? Never used electronic cigarettes [email or web address] Information not available 11/19/2020 Mental Status None recorded. Family History Relationship Description Onset Age of this Age Resolved Age Notes LastModified by Organization Details LastModified Time Paternal Aunt Malignant neoplastic disease Not available 2016 14:02:43 Paternal Aunt Malignant tumor of cervix [email or web address] Not available 2020 08:55:41 Unspecified Relation Malignant tumor of breast matern al great grandm other 60-70s [email or web address] Not available 11/24/2021 08:32:39 Unspecified Relation Asthma [email or web address] Not available 7 13:48:10 Maternal Grandmother Cerebrovascu lar accident Not available 09/2016 14:03:22 Mother Disorder of thyroid gland [email or web address] Not available 2020 08:55:50 Medical History Condition Response Anemia Y Headaches Y Thyroid Problems Y Chicken Pox Y Gynecological History Statement/Question Response Abnormal Pap Y Flow Light Date of Last Mammogram Date of LMP 11/01/2021 Menses Monthly Y STIs/STDs Y Date of Last Pap Smear 11/19/2020 Duration of Flow (days) 5 Current Control Method Tubal Ligat ion LMP Definite Obstetrics History GPAL:G 4 P 4 0 0 4 Type Value Full Term 4 Living 4 Total 4 Immunizations Vaccine Type Date Status Note Provider Nam e and Address Organization Details Recorded Time Influenza, split virus, quadrivalent, preservative 0 completed [facility] 11/19/2020 08:54:26 Past Encounters Encounter ID Performer Location Encounter Start Date Encounter Closed Date Diagnosis/Indication Diagnosis SNOMED-CT Code Diagnosis ICD10 Code Diagnosis Note [id number] [facility] [address] 08/30/2016 22:43:12 08/30/2016 22:43:12 [id number] GUY BARTLETT APRN [facility] [address] [place] [address] 11/01/2016 13:40:52 11/01/2016 14:53:32 Pain in pelvis 23988697 R10.2 lower abd, back pain. r/o UTI Lower abdominal pain 545 92062 R10.30 lower abd and back pain. Constipation 68563815 K5 9.00 Enc. inc fluids Vaginitis 35418576 N76.0 Z11.3 painful intercours e Dyspareunia 89018849 N94 .11 pain with immediate penetratio n and then the pain subsides as intercours e procedes [id number] MD [address] [place] [address] 01/03/2017 08:09:05 01/03/2017 08:42:13 Postoperative visit 774579185 Z09 Pain in pelvis 65375113 R10.2 s/p dx laparoscop y Endometrio sis of pelvis 95725572 N80.3 s/p dx laparoscop y Chronic constipation 236 848602 K59.01 on trulance - will follow symptoms for resolution Endometrio sis of uterus 84194384 N80.0 [id number] MD [address] [place] [address] 02/17/2017 13:27:11 02/17/2017 14:41:56 Routine gynecologic examination done 6026342029 9101 Z01.419 Infection screening 2437 22819 Z11.3 Gynecologi c examination 41639573 Z01.419 Endometrio sis of uterus 49537005 N80.0 Constipation 36782638 K5 9.00 samples of taytulla provided and script sent in Dysmenorrhea 751875484 N 94.6 [id number] MD [address] [place] [address] 07/01/2017 08:29:26 07/01/2017 09:36:37 Pain in pelvis 22161282 R10.2 s/p dx laparoscop y- overall improved- discussed pain with ovulation- /mid cycle pain- discussed OCP, nexplanon and depot provera; will follow menstrual calendar and pain calendar Chronic constipation 236 457899 K59.01 on trulance withimprov ment in symptoms but cost prohibitiv e; trial of linzess 72 mcg daily- script sent in Irritable bowel syndrome characterized by constipation 040982275 K58.1 Plan trial of linzess [id number] [address] [place] [address] 11/19/2020 08:45:35 11/19/2020 09:40:52 Gynecological examination abnormal 7317745768 35574 Z01.411 On examina tion - VE - uterine tenderness 307525366 R39.89 Rocephin 500mg + oral meds; FU 2 wks Acute cervicitis 8252474 0 N72 will add GCC testing to the pap Screening for malignant neoplasm of cervix 864580401 Z12.4 Multinodular goiter 2375 22672 E04.2 Discharge from nipple 54 460594 N64.52 [id number] LAURENCE GÓMEZ, APPLIER DARINEL [facility] [address] [place] [address] 12/03/2020 08:14:51 12/03/2020 09:37:32 Follow-up visit 103636554 Z09 PID resolved. R/O persistent MPC. (OneSwab taken/ pending) [id number] DO DARINEL DOE [facility] [address] [place] [address] 11/24/2021 08:03:44 11/24/2021 08:51:01 Gynecologic examination 22350561 Z01.419 Pap: epeat pap due 2025mammog tierney at age 42 unless otherwise indicatedr epeat mammogram [facility] t/pelvic exam normal except where otherwise documented f/u 1 year for annual or sooner if neededcont inue care/labs with PCP Screening for malignant neoplasm of cervix 848711208 Z12.4 2020 rpt 2025 Acne 50599172 L70.9 declines referral to derm and doesnt want COCs currently as wants tubal reversed History of tubal ligation 552312829 Z98.51 desires reversal, referral placed Health Concerns Section Related Observation LastModified by Organization Detai ls LastModified Time None Recorded Concern Status LastModified by Organization Details LastModified Time None Recorded Advance Directives Directive None Recorded Payers Insurance Date Sequence Insurance Name Policy Number Policy Gomez Covered Member ID Gomez Member ID Guarantor Name 11/22/2022 1 [employer] (POS) [id number] Ophelia Calle [id number] Ophelia Mejia 11/23/2021 2 [employer]OB[employer] (HMO) TRAVIS Jacinto R Mejia [id number] Ophelia R Mejia 08/02/2018 1 *SELF PAY* Br ittmatt R Mejia 11/23/2021 2 [employer]ESOTARUN-ROBERT (HMO) TRAVIS Samy R Mejia [id number] Ophelia R Mejia 11/23/2021 1 [employer] - CARMEL JONES (MEDICAID REPLACEMENT - O) TRAVIS Ophelia R Mejia [id number] Ophelia R Mejia Notes Date Note Type Note Provider Name and Address Organization Details Recorded Time 02/17/2017 text/html Annual GYNReport ed bypatient.Menstrual cycle:Normal menses Urinary symptoms:No hematuria; No incontinence Vulva:No genital lesion Vagina:Normal vaginal discharge Breast:No breast pain; No breast lump; No nipple discharge Current Contraception:Satisfie d with current contraception; Monogamous relationship; Tubal ligation Sexual complaints:No sexual complaints; No pain during intercourse; Normal libido Menopausal Symptoms:No menopausal symptoms; Normal vaginal lubrication Psychological symptoms:No depression; No anxiety; No PMDD Preventive measures:Encourage self breast examination; Encourage regular exercise; Encourage no tobacco use; Encourage regular mammograms starting age 40; Followed with Q3 year pap smear and high risk HPV typing Here for annual exam and combined post op visitFindings from surgery- endometriosis and adenomyosisLMP 12/24/16, then 01/22/17No complaints today JOSLYN PEREIRA MD [address] [place] [address], [address], [facility] 02/19/2017 13:52:45 07/01/2017 text/html Here for f/u on pelvic painChronic constipation- used trulance for 1 month and was doing fine - however has stopped and now with issuesC/O pelvic pain now - LLQ and into back -This pain is associated with nausea and crampingalso has muscle aches - no f/cstool much softerLess pain overall when BM's regularMenses regular- flow lasted 3 days and very light- Has had a tubalPain prior to period and then this week had pain this week - on left sideNausea On TuesdayCurrently mid cycleLast BM yesterday and no strainingPain not associated with sex and if pain occurs it is after sex and not all the time JOSLYN PEREIRA MD [address] [place], [address], [facility] 07/03/2017 06:48:50 11/19/2020 text/html 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 34yo, , with BTL for BC. Menses still monthly, 3 d light flow. Former smoker, but quit in Jun 2016. She has PMHx of a multinodular goiter. (No US or labs for > 1 yr) c/o worsening dysmenorrhea & dyspareunia x past yr (georgi past 6-8 months). Known (lap-proven) endometriosis. She was also seperated from her x few mo last yr. Willing to allow me to ck cx for infections. c/o bilat milky nipple dc that she can express sometimes; it never comes out spontaneously. Does have longstanding hx HAs. Will ck prolactin. LAURENCE GÓMEZ APRN [address] [place], [address], [facility] 11/19/2020 11:14:21 12/03/2020 text/html Here for FU of M PC, PID. She got Rocephin inj + oral meds. Feels asymptomatic now. Had SA 1x. No dyspareunia or postcoital bldg. The pap, HPV, and STD screening were normal. LAURENCE GÓMEZ APRN [address] [place], [address], [facility] 12/03/2020 09:36:06 11/24/2021 text/html annual HPI: patient is a 35 year old who presents for annual exam. she denies fever, chills, nausea, vomiting, SOB, CP, hematuria, dysuria, problems with intercourse, hot flashes, night sweats, vaginal dryness on ROS. SUBJECTIVE:Periods are regular, lasting 5 days.Dysmenorrhea: Yes, No intermenstrual bleeding, spotting, or discharge.She has the following complaints: wants referral for kimberlyn to get tubal reversal and discuss acne Currently sexually active: yesCurrent contraception: btlLast Pap smear: 2020 nilm -hr hpvHistory of abnormal Pap smear: n/aif yes prior tx: n/a PMH: reviewedPSH: reviewedreviewed Meds/AllergiesSocial Hx: denies smoking and illicit drug use, alcohol use 1 drink a weekFHx: denies fhx ovarian cancer, remaining fhx revieweddepression: denies si/hiintimate partner violence: denies, lives at home with herself and kids, feels safe at home, wears seatbelt KAYKAY ROSALES DO [address] [place], [address], [facility] 11/24/2021 09:14:40 OBGyn Episode No OBEpisode recorded.
--- NOTE | 2024-11-23 21:08 | XR_ITS ---
PROCEDURE INFORMATION: Exam: XR Left Knee Exam date and time: 11/23/2024 9:29 PM Age: 38 years old Clinical indication: Injury or trauma; Other: Inversion; Sprain or strain; Lower leg; Left; Additional info: Lateral knee paion after ankle inversion TECHNIQUE: Imaging protocol: Radiologic exam of the left knee. Views: 3 views. COMPARISON: CR XR ANKLE LT MIN 3V 11/23/2024 9:29 PM FINDINGS: Bones/joints: Normal. No fracture evident Soft tissues: Normal. IMPRESSION: No acute findings.
--- NOTE | 2024-11-23 21:08 | XR_ITS ---
PROCEDURE INFORMATION: Exam: XR Left Tibia and Fibula Exam date and time: 11/23/2024 9:29 PM Age: 38 years old Clinical indication: Injury or trauma; Other: Inversion; Sprain or strain; Lower leg; Left; Additional info: Lateral knee paion after ankle inversion TECHNIQUE: Imaging protocol: Radiologic exam of the left tibia and fibula. Views: 2 views. COMPARISON: CR XR ANKLE LT MIN 3V 11/23/2024 9:29 PM FINDINGS: Bones/joints: Normal. No acute fracture identified. Soft tissues: Normal. IMPRESSION: No acute findings.
--- NOTE | 2024-11-23 21:08 | XR_ITS ---
PROCEDURE INFORMATION: Exam: XR Left Ankle Exam date and time: 11/23/2024 9:29 PM Age: 38 years old Clinical indication: Injury or trauma; Other: Inversion; Sprain or strain; Lower leg; Left; Additional info: Lateral mal pain after inversion TECHNIQUE: Imaging protocol: Radiologic exam of the left ankle. Views: 3 or more views. COMPARISON: CR XR TIBIA FIBULA LT 2V 11/23/2024 9:29 PM FINDINGS: Bones/joints: Normal. No acute fracture identified. Soft tissues: Normal. IMPRESSION: No acute findings.
--- NOTE | 2024-11-23 22:00 | HMH.EDGENADL ---
Discharge Plan Disposition Patient Disposition: Home, Self-Care Prescriptions Prescriptions: No Action folic acid 1 mg tablet 2 mg PO DAILY Patient Comments: TAKE 2 TABLETS BY MOUTH ONCE DAILY metformin 500 mg tablet extended release 24 hr 1,500 mg PO DAILY Patient Comments: TAKE 3 TABLETS BY MOUTH ONCE DAILY WITH EVENING MEAL triamcinolone acetonide 0.1 % ointment 1 applic topical TID Qty: 30 0RF Rx Instructions: apply to rash on ankle as directed Referrals Follow up/Referrals: Kingston Montiel [Primary Care Provider, Medical] - See instructions Activity Restrictions/Add. Instructions Additional Instructions/Restrictions: Call your family doctor to establish care for this visit to the emergency department and schedule follow-up within 48 hours to ensure improvement. If you have any worsening of your condition or any other concerning signs or symptoms, return to the emergency department or your primary care doctor for further evaluation. Clinical Impressions Clinical Impression: Acute pain of left lower extremity Print Language Print Language: [place] Discharge ED Provider: Star Larose General Adult HPI General Chief complaint: Extremity Injury, Lower Stated complaint: rolled left ankle and knee Time Seen by Provider: 11/23/24 20:55 Mode of Arrival: Ambulatory Source of Information: Patient Description of Symptoms (Recalled from ER Triage Doc. by RN): patient fell about 6pm tonight getting [place] of her [place] and is now experiencing left ankle and lower leg pain. Patient is able to bear weight. Took tylenol and ibuprofen prior to arrival. History of Present Illness HPI narrative: Please note that above description of symptoms, in this electronic medical record under categorization of recalled from ER triage doctor by RN are reflective of an initial nursing assessment, however, is not reflective of my full history and physical exam that was personally taken and clarified. Consequentially, this preceding description of symptoms, which may include the patient's categorized chief complaint in the EMR, do not reflect my personal clinical impression, and the ultimate description of history of present illness and patient stated complaints should be deferred to this section of the note. Unless stated otherwise or congruent with this section of the note, additional signs, symptoms, or incongruence should be interpreted as inaccurate with my clinical impression. Related Data Home Medications ?Medication ?Instructions ?Recorded ?Confirmed folic acid 1 mg tablet 2 mg PO DAILY Supplement 10/19/22 10/19/22 metformin 500 mg tablet,extended 1,500 mg PO DAILY . 10/19/22 10/19/22 release 24 hr Previous Rx's ?Medication ?Instructions ?Recorded triamcinolone acetonide 0.1 % 1 applic topical TID #30 grams 10/19/22 topical ointment Allergies Allergy/AdvReac Type Severity Reaction Status Date / Time No Known Allergies Allergy Verified 05/01/22 11:24 [facility] Disclaimer: The information contained in this section may have been updated after the patient was seen, as this information can be updated by other users. Surgical History History of section History of tonsillectomy History of tubal ligation Social History Smoking Status: Never smoker alcohol intake: never current occupational status: other Travel in the last 8 weeks?: None Have you lived/traveled outside [place] in past 30 days?: No Contact w/someone who lives/traveled outside [place] past 30 days?: No Exposure to someone with infectious disease in past 14 days?: No Do you have a fever (greater than 100.4 F or 38 C)?: No Have you tested positive for COVID-19?: No Exposed to someone with COVID-19 in past 14 days?: No Do you have a sore throat?: No Do you have a cough?: No Do you have any weakness?: No Do you have any diarrhea?: No Are you experiencing any unusual bleeding?: No Do you have any muscle aches/pain?: No Do you have any abdominal pain?: No Are you experiencing loss of taste or smell?: No ROS Obtained: Yes All systems reviewed & no additional complaints except as documented Physical Exam General General appearance: alert Head Head exam: atraumatic and normocephalic Eye Eye exam: Present normal appearance, PERRL and EOMI Neck Neck exam: Present normal inspection, full ROM and trachea midline Respiratory Respiratory exam: Absent respiratory distress, wheezes, stridor, accessory muscle use or prolonged expiratory phase Cardiovascular Cardiovascular exam: Present other (Pulses equal symmetric in upper and lower extremities) Abdominal Exam Abdominal exam: Present soft; Absent distention, tenderness or pulsatile mass Extremities Exam Extremities exam: Present tenderness, edema and other (Tender about proximal fibula. Some sensation deficit lateral aspect of left lower leg. Tenderness about lateral malleolus) Neurological Exam Neurological exam: Present alert, oriented X3 and CN II-XII intact; Absent motor sensory deficit Skin Skin exam: Present warm and dry; Absent diaphoresis or erythema Medical Decision Making Medical Records Medical records reviewed: Yes I reviewed the patient's medical records. Screening: Per USPSTF and CDC recommendations, given the prevalence of disease in our region, it is our hospital?s policy to screen for HIV and viral Hepatitis for all patients aged 18 and over and those with ongoing risk factors. Jairon Inquiry Pt receiving controlled substance: No Jairon was queried for this patient: No Vital Signs: 11/23/24 21:05 Temperature 98.4 F Temperature Source Oral Pulse Rate [Left] 80 Respiratory Rate 20 Blood Pressure [Right Arm] 127/88 Blood Pressure Mean [Right Arm] 101 Blood Pressure Source [Right Arm] Automatic Cuff Blood Pressure Position [Right Arm] Sitting 02 Sat by Pulse Oximetry 100 Oxygen Delivery Method Room Air Orders (Tests/Meds): ORDERS Category Date Time Status Ankle XR - Left minimum 3 Views [XR ankle LT min 3V] Exams 11/23/24 21:08 Taken Stat Fibula/tibia XR left 2 views [XR tibia fibula LT 2V] Exams 11/23/24 21:08 Taken Stat Knee XR left 3 views [XR knee LT 3V] Stat Exams 11/23/24 21:08 Taken Medical Decision Narrative: 38-year-old female presenting with left lower extremity pain. She states she was walking, stepped incorrectly, inverted her ankle and had pain in the lateral aspect of her ankle as well as her proximal/lateral leg. Able to bear weight, pain is made worse with inverting the ankle and reproducing the injury. No instability. Came in for further evaluation. This happened just a couple hours prior to arrival. On arrival, very clinically well. Tearful, but outwardly intact. Patellar ligament and tendon intact, patellar glide normal, ACL, MCL, LCL, MCL all intact when stressed. No joint space tenderness. Tenderness about proximal fibula with associated sensation deficit lateral aspect of lower extremity. Differential includes sprain, strain, fracture, neuropathy, radiculopathy, among others. Patient took Tylenol and Motrin prior to arrival, no other meds were given here. X-rays were obtained. On independent interpretation, negative for any acute bony abnormality. Patient reassured. Because patient at baseline without signs or symptoms of clinical decompensation, deemed appropriate for discharge. Results were relayed to patient who voiced understanding and were agreeable to outpatient management and follow up. I discussed my clinical impression with patient and answered all questions. At this time, the evidence for any other entities in the differential is insufficient to warrant any further testing or ED observation. This was explained as well. Advisory was given that persistent or worsening symptoms require further evaluation. I confirmed the understanding of this discussion. Rental Representative disclaimer Much of this encounter note is an electronic compensation director spoken language to printed text. Electronic compensation director of the spoken language may permit errors. Although I have reviewed the note, some errors may still exist. Critical Care Critical Care Time Critical Care Time: No
[2024-11-23 22:12] VITALS: BP 120/82; PULSE 76; RESP 20; TEMP 36.8; O2SAT 100
== END 2024-11-23 22:14 | disposition home or self-care (01) ==
PROVIDERS: Emergency Provider Emergency Medicine; PCP Internal Medicine
DX: M79.605 Pain in left leg (principal)
CPT/HCPCS: 73562; 73590; 73610; 99284

== ENCOUNTER 2025-04-10 11:58 | Emergency (ER) | payer BC, SELFPAY ==
[2025-04-10] VITALS (13 sets, daily range): BP systolic 101–150; BP diastolic 54–82; PULSE 71–89; RESP 16; TEMP 36.7; O2SAT 99–100; BMI 31.2
--- OUTSIDE RECORDS SUMMARY | 2025-04-10 12:31 | XMS_ITS | Data Portability ---
Author Organization [facility] telehealth Address [address] [place] [address] Assessment Encounter Id Assessment Date Assessment LastModified by Organization Details LastModified Time [id number] 01/23/2024 38 yo F here today for [...] RTC for visit or PRN. Pleasant mood. [facility] 01/23/2024 18:35:25 [id number] 02/27/2024 38 y/o presents for 6 week [...] with puncture aspiration and confirmed with ULS. MD [facility] 02/27/2024 11:01:32 [id number] 04/05/2024 38 yo F presents for IUS [...] RTC for WWE or sooner if needed. MD [facility] 04/05/2024 15:32:33 [id number] 10/29/2024 38 yo F presents for an [...] RTC for WWE or sooner if needed. MD [facility] 10/29/2024 11:01:00 [id number] 01/18/2025 39 y/o F here today for HRT follow up. She reports some improvement in energy since initiating therapy however continues to experience low libido. Vitamin D supplement prescribed for borderline levels. Hormone labs drawn today, pending results will adjust HRT dose for one month. RTC for HRT follow up in one month, sooner if needed. All other ROS neg X HPI. Meds reviewed and accurate. [facility] 01/18/2025 15:53:31 Plan of Treatment Reminders Order Date Submit Date Provider Last Modified By Organization Details Last Modified Time Details Appointments None recorded. Lab estradiol, serum 2024 025 [facility] ([facility]), [address] [place] [address], [address], 5 05:31:54 dhea-sulfat e, serum 2024 025 [facility] ([facility]), [address] [place] [address], [address], 5 05:31:55 testosteron e, total, serum 2024 025 [facility] ([facility]), [address] [place] [address], [address], 5 05:31:54 lh + FSH, serum 2024 025 [place] [facility] ([facility]), [address] [place] [address], [address], 5 05:31:53 pap, LB 2024 025 [place] [facility] ([facility]), [address] [place] [address], [address], 5 16:12:52 HbA1c (hemoglobin A1c), blood 2024 025 [place] [facility] ([facility]), [address] [place] [address], [address], 5 08:17:12 CMP, serum or plasma 2024 025 [facility] ([facility]), [address] [place] [address], [address], 5 08:17:09 CBC w/ auto diff 2024 025 [facility] ([facility]), [address] [place] [address], [address], 5 08:17:08 TSH, serum or plasma 2024 025 [facility] ([facility]), [address] [place] [address], [address], 5 08:17:13 vitamin B12, serum 2024 025 [facility] ([facility]), [address] [place] [address], [address], 5 08:17:12 vitamin D, 25-hydroxy, total, serum 2024 025 [facility] ([facility]), [address] [place] [address], [address], 5 08:17:09 bacterial vaginosis + vaginitis panel, vaginal 2024 025 [facility]), [address] [place] [address], [address], 5 16:12:53 testosteron e, total, serum 2024 025 [facility] ([facility]), [address] [place] [address], [address], 5 08:17:10 dhea-sulfat e, serum 2024 025 [facility] ([facility]), [address] [place] [address], [address], 5 08:17:14 estradiol, serum 2024 025 [facility] ([facility]), [address] [place] [address], [address], 5 08:17:11 lh + FSH, serum 2024 025 [facility] ([facility]), [address] [place] [address], [address], 5 08:17:07 Referral None recorded. Procedures None recorded. Surgeries None recorded. Imaging None recorded. Medication Orders cholecalcif pineda (vitamin D3) 125 mcg (5,000 unit) capsule 2024 025 [facility], [address] [place] [address], [address], 5 13:52:12 metformin ER 500 mg tablet,exte nded release 24 hr 2024 025 [facility], [address] [place], [address], 5 11:07:57 Cipro 500 mg tablet 2023 025 [id number], [address] [place], [address], 5 09:50:24 Slynd 4 mg (28) tablet 2023 024 [id number] [address] [place], [address], 4 09:25:47 Patient TargetsNo targets recorded. Patient InstructionsNo instructions recorded. Reason for Referral None Reported. Results Created Date Observation Date Name Description Value Unit Range Abnormal Flag Note LastModifiedBy Organization Detail LastModifiedTime 12/30/19 24 2023 urina lysis , dipst ick Leukocytes negati ve Not Available MD Graciela Ramachandran Dr, [place], [address], 12/29/2023 12:01:11 12/30/19 24 2023 urina lysis , dipst ick Protein negati ve Not Available MD Graciela Ramach[address]ran [address], [place], [address], 12/29/2023 12:01:11 12/30/19 24 2023 urina lysis , dipst ick Blood negati ve Not Available MD Graciela Ramachandran [address], [place], [address], 12/29/2023 12:01:11 12/30/19 24 2023 urina lysis , dipst ick Nitrate negati ve Not Available MD Graciela Ramachandran [address], [place], [address], 12/29/2023 12:01:11 12/30/19 24 2023 urina lysis , dipst ick Glucose negati ve Not Available Aidee Acuña MD [address], [place], [address], 12/29/2023 12:01:11 10/30/19 25 10/31/2024 PAP TEST [...] Mart r, CT( CP) Date Repor jennifer: Speci men Adequ acy: Satis facto ry [...] Techn ical servi jason provi ded by [facility] iatTextic [facility] [employer], [employer], d/b/a PathG roup, [address] [place] [address] Rita adames MD, Labor ator Dire tor. Case revie wed and diagn osis rende red at [facility] Privatext [facility] [employer], [employer], d/b/a PathWanjee Operation and Maintenance rou, [address] [place] [address] Rita adames MD, [facility] tor. CONFI DENTI AL Not Available [facility] ([facility]) [address], [place], [address], 10/31/2024 16:12:52 10/30/19 25 10/31/2024 VAGIN ITIS [...] ing error . Test perfo rmed by [facility] [facility], [employer], d/b/a PathG roup, [address], [facility] [place] [place] [address] , Cruz Guadarrama ra, DO, Labor ator Dire tor. Gardn erell a vagin di, Ольга [...] ronak resul ts of Xenia l or Olivia jennifer are deter mined by calcu latin [...] devel oped and its perfo rmanc e frankiln cteri stics deter mined by [employer], [employer] d/b/a PathRashaun cruz. It has not been clear ed or appro chandler by the U.S. Food and Drug Admin istra tion. The FDA has deter mined that such clear ance or appro debbie is not neces nicola. Perti nent refer ence inter vals are avail able from the labor atory on reque st. Test( s) perfo rmed by [employer] [facility] [employer] [facility], [employer], d/b/a PathRashaun cruz, [address], [place] [address] , Cruz Guadarrama ra, DO, Labor atory Dire tor. Not Available [facility] ([facility]) [address] [facility] [address], [place], [address], 10/31/2024 16:12:53 10/30/19 25 10/31/2024 VAGIN ITIS [...] rmed by Assoc iated Patho logis ts, [facility], d/b/a Path rou, [address], [place] [address] , Cruz Guadarrama ra, DO, Labor atory Dire tor. Gardn erell a vagin di, Ольга [...] ronak resul ts of Xenia l or Olivia jennifer are deter mined by calcu latin [...] rent demog raphi cs from the PathG rou model popul ation may have diffe [...] franklin cteri stics deter mined by Assoc iatTextic Patho logis [employer], [employer] d/b/a Path [employer]. It has not been clear ed or appro chandler by the U.S. Food and Drug Admin istra tion. The FDA has deter mined that such clear ance or appro debbie is not neces nicola. Perti nent refer ence inter vals are avail able from the labor atory on reque st. Test( s) perfo rmed by Assoc iatTextic Patho logis [employer], [employer], d/b/a Path [employer], [address], [place] [address] , Cruz Guadarrama ra, DO, Labor atory Direc tor. Not Available [facility] ([facility]) [address], [place], [address], 10/31/2024 16:12:53 10/30/19 25 10/31/2024 VAGIN ITIS [...] iated Patho logis ts, LLC, d/b/a PathG rou, [address], [facility] [place] [place] [address] , Cruz Guadarrama ra, DO, Labor atory [...] ronak resul ts of Xenia l or Olivia jennifer are deter mined by calcu latin [...] e franklin cteri stics deter mined by [employer] d/b/a [employer]Wan[employer] rou. It has not been clear ed or appro chandler by the U.S. Food and Drug Admin istra tion. The FDA has deter mined that such clear ance or appro debbie is not neces nicola. Perti nent refer ence inter vals are avail able from the labor atorZola Books on reque st. Test( s) perfo rmed by [employer], d/b/a PathSecurly, [address], [place] [address] , Cruz Guadarrama ra, DO, [facility] atorZola Books [facility]. Not Available [facility] ([facility]) [address], [place], [address], 10/31/2024 16:12:53 10/30/19 25 10/31/2024 HPV HIGH RISK SCREE N (TMA) HPV high risk NOT DETECT ED normal The human papil lomav irus (HPV) High Risk Scree n is an FDA-a pprov ed in-vi tro ampli fied nucle ic acid test for the quali tativ e detec tion of E6/E7 viral mRNA. [facility] shosarthak d be corre lated with patie nt prese ntati on, histo ry, cervi rufina cytol ogy and other clini rufina and labor atory findi ngs. See https ://Hapara/s ites/ defau lt/fi les/2 018-0 3/AW- 91537 _002_ 01.pd f for shawna vannr deana n. Test perfo rmed by [employer] d/b/a [employer], [address], [place] [address] , Cruz Guadarrama ra, , [facility], CLIA# [id number] Not Available [facility] ([facility]) [address] [place] [address] Dr [address], [place], [address], 10/31/2024 16:12:54 10/30/19 25 10/30/2024 FSH AND LH luteinizing hormone 4.10 mIU/m L LH Refer ence Range Men: 1.7 - 8.6 Women : Folli cular phase 2.4 - 12.6 Ovula tion phase 14.0 - 95.6 Lutea l phase 1.0 - 11.4 Postm enopa use 7.7 - 58.5 Not Available [facility] ([facility]) [address] [place] [address] Dr [address], [place], [address], 11/01/2024 08:17:07 10/30/19 25 10/30/2024 FSH AND LH FSH 2.00 mIU/m L FSH Refer ence Range Men: 1.5 - 12.4 Women : Folli cular phase 3.5 - 12.5 Ovula tion phase 4.7 - 21.5 Lutea l phase 1.7 - 7.7 Postm enopa use 25.8 - 134.8 Not Available [facility] ([facility]) [address] [place] [address] Dr [address], [place], [address], 11/01/2024 08:17:07 10/30/19 25 10/30/2024 CBC WITH PLATE LET AND DIFFE RENTI AL WBC 4.2 K/uL 3.8-11 .5 Not Available [facility] ([facility]) [address] [place] [address] Dr [address], [place], [address], 11/01/2024 08:17:08 10/30/19 25 10/30/2024 CBC WITH PLATE LET AND DIFFE RENTI AL red blood cell count (RBC) 4.44 M/mm3 3.60-5 .30 Not Available [facility] ([facility]) [address] [place] [address] Dr [address], [place], [address], 11/01/2024 08:17:08 10/30/19 25 10/30/2024 CBC WITH PLATE LET AND DIFFE RENTI AL hemoglobin (HGB) 13.9 gm/dL 11.5-1 5.5 Not Available [facility] ([facility]) [address] [place] [address] Dr [address], [place], [address], 11/01/2024 08:17:08 10/30/19 25 10/30/2024 CBC WITH PLATE LET AND DIFFE RENTI AL hematocrit (HCT) 42.1 % 35.2-4 6.4 Not Available [facility] ([facility]) [address] [place] [address] Dr [address], [place], [address], 11/01/2024 08:17:08 10/30/19 25 10/30/2024 CBC WITH PLATE LET AND DIFFE RENTI AL MCV 94.8 fL 79.0-9 9.0 Not Available [facility] ([facility]) [address] [place] [address] Dr [address], [place], [address], 11/01/2024 08:17:08 10/30/19 25 10/30/2024 CBC WITH PLATE LET AND DIFFE RENTI AL MCH 31.3 pg 26.9-3 5.0 Not Available [facility] ([facility]) [address] [place] [address] Dr [address], [place], [address], 11/01/2024 08:17:08 10/30/19 25 10/30/2024 CBC WITH PLATE LET AND DIFFE RENTI AL MCHC 33.0 g/dL 30.4-3 4.8 Not Available [facility] ([facility]) [address] [place] [address] Dr [address], [place], [address], 11/01/2024 08:17:08 10/30/19 25 10/30/2024 CBC WITH PLATE LET AND DIFFE RENTI AL RDW 40.8 fL 38.6-5 3.8 Not Available [facility] ([facility]) [address] [place] [address] Dr [address], [place], [address], 11/01/2024 08:17:08 10/30/19 25 10/30/2024 CBC WITH PLATE LET AND DIFFE RENTI AL platelet count 281 K/cum m 137-39 7 Not Available [facility] ([facility]) [address] [place] [address] Dr [address], [place], [address], 11/01/2024 08:17:08 10/30/19 25 10/30/2024 CBC WITH PLATE LET AND DIFFE RENTI AL neutrophils automated 48.8 % 41.0-7 7.0 Not Available [facility] ([facility]) [address] [place] [address] Dr [address], [place], [address], 11/01/2024 08:17:08 10/30/19 25 10/30/2024 CBC WITH PLATE LET AND DIFFE RENTI AL lymphocytes automated 36.9 % 14.0-4 8.0 Not Available [facility] ([facility]) [address] [place] [address] Dr [address], [place], [address], 11/01/2024 08:17:08 10/30/19 25 10/30/2024 CBC WITH PLATE LET AND DIFFE RENTI AL monocytes automated 11.7 % 4.0-13 .0 Not Available [facility]) [address] [place] [address] Dr [address], [place], [address], 11/01/2024 08:17:08 10/30/19 25 10/30/2024 CBC WITH PLATE LET AND DIFFE RENTI AL eosinophils automated 1.9 % 0.0-8. 0 Not Available [facility] ([facility]) [address] [place] [address] Dr [address], [place], [address], 11/01/2024 08:17:08 10/30/19 25 10/30/2024 CBC WITH PLATE LET AND DIFFE RENTI AL basophils automated 0.5 % 0.0-1. 5 Not Available [facility] ([facility]) [address] [place] [address] Dr Kaiser, [place], [address], 11/01/2024 08:17:08 10/30/19 25 10/30/2024 CBC WITH PLATE LET AND DIFFE RENTI AL immature granulocyte automated 0.2 % 0.0-1. 0 Not Available [facility] ([facility]) [address] [place] [address] Dr Kaiser, [place], [address], 11/01/2024 08:17:08 10/30/19 25 10/30/2024 COMPR EHENS SURENDRA METAB OLIC PANEL (CMP) sodium 141 mmol/ L 135-14 5 Not Available [facility] ([facility]) [address] [place] [address] Dr Kaiser, [place], [address], 11/01/2024 08:17:09 10/30/19 25 10/30/2024 COMPR EHENS SURENDRA METAB OLIC PANEL (CMP) potassium 4.6 mmol/ L 3.5-5. 3 Not Available [facility] ([facility]) [address] [place] [address] Dr [address], [place], [address], 11/01/2024 08:17:09 10/30/19 25 10/30/2024 COMPR EHENS SURENDRA METAB OLIC PANEL (CMP) chloride 104 mmol/ L 97-108 Not Available [facility] ([facility]) [address] [place] [address] Dr Kaiser, [place], [address], 11/01/2024 08:17:09 10/30/19 25 10/30/2024 COMPR EHENS SURENDRA METAB OLIC PANEL (CMP) CO2 28 mmol/ L 22-32 Not Available [facility] ([facility]) [address] [place] [address] Dr Kaiser, [place], [address], 11/01/2024 08:17:09 10/30/19 25 10/30/2024 COMPR EHENS SURENDRA METAB OLIC PANEL (CMP) glucose 86 mg/dL 65-99 Not Available [facility]) [address] [place] [address] Dr Kaiser, [place], [address], 11/01/2024 08:17:09 10/30/19 25 10/30/2024 COMPR EHENS SURENDRA METAB OLIC PANEL (CMP) BUN 5 mg/dL 6-20 low Not Available [facility] ([facility]) [address] [place] [address] Dr Kaiser, [place], [address], 11/01/2024 08:17:09 10/30/19 25 10/30/2024 COMPR EHENS SURENDRA METAB OLIC PANEL (CMP) creatinine 0.69 mg/dL 0.50-1 .00 Not Available [facility] ([facility]) [address] [place] [address] Dr Kaiser, [place], [address], 11/01/2024 08:17:09 10/30/19 25 10/30/2024 COMPR EHENS SURENDRA METAB OLIC PANEL (CMP) calcium 9.4 mg/dL 8.6-10 .4 Not Available [facility] ([facility]) [address] [place] [address] Dr Kaiser, [place], [address], 11/01/2024 08:17:09 10/30/19 25 10/30/2024 COMPR EHENS SURENDRA METAB OLIC PANEL (CMP) eGFR by creatinine 115 mL/mi n/1.7 3m2 >59 Not Available [facility] ([facility]) [address] [place] [address] Dr Kaiser, [place], [address], 11/01/2024 08:17:09 10/30/19 25 10/30/2024 COMPR EHENS SURENDRA METAB OLIC PANEL (CMP) protein 7.1 g/dL 6.0-8. 3 Not Available [facility] ([facility]) [address] [place] [address] Dr Kaiser, [place], [address], 11/01/2024 08:17:09 10/30/19 25 10/30/2024 COMPR EHENS SURENDRA METAB OLIC PANEL (CMP) albumin 4.4 g/dL 3.5-5. 3 Not Available [facility] ([facility]) [address] [place] [address] Dr [address], [place], [address], 11/01/2024 08:17:09 10/30/19 25 10/30/2024 COMPR EHENS SURENDRA METAB OLIC PANEL (CMP) alkaline phosphatase 91 IU/L 35-121 Not Available [facility] ([facility]) [address] [place] [address] Dr Kaiser, [place], [address], 11/01/2024 08:17:09 10/30/19 25 10/30/2024 COMPR EHENS SUERNDRA METAB OLIC PANEL (CMP) ALT (SGPT) 7 IU/L <5-47 Not Available [facility] ([facility]) [address] [place] [address] Dr [address], [place], [address], 11/01/2024 08:17:09 10/30/19 25 10/30/2024 COMPR EHENS SURENDRA METAB OLIC PANEL (CMP) AST (SGOT) 9 IU/L <5-40 Not Available [facility] ([facility]) [address] [place] [address] Dr Kaiser, [place], [address], 11/01/2024 08:17:09 10/30/19 25 10/30/2024 COMPR EHENS SURENDRA METAB OLIC PANEL (CMP) bilirubin, total 0.3 mg/dL <0.2-1 .2 Not Available [facility] ([facility]) [facility] [address], [place], [address], 11/01/2024 08:17:09 10/30/19 25 10/30/2024 COMPR EHENS SURENDRA METAB OLIC PANEL (CMP) A/G ratio 1.6 1.1-2. 5 Not Available [facility] ([facility]) [facility] [address], [place], [address], 11/01/2024 08:17:09 10/30/1910/30/2024 VITAM IN D 25-HY DROXY vitamin D [...] corre latio n requi red. Not Available [facility] ([employer] [facility]) [address] [place] [address] Dr Kaiser, [place], [address], 11/01/2024 08:17:09 10/30/1910/30/2024 TESTO STERO NE TOTAL testosterone total SEE BELOW NG/dL 8.00-4 8.00 The resul t for testo stero ne is outsi de of the repor table range for this metho dolog y and has autom atica lly refle xed Testo stero ne, Total by LC/MS . Not Available [facility] ([employer] [facility] [employer]) [facility] [address], [place], [address], 11/01/2024 08:17:10 10/30/1911/01/2024 TESTO STERO NE, TOTAL BY LC/MS testosterone [...] as inves tigat ional or for resea rch. Not Available [facility] ([facility]) [address] [facility] [address], [place], [address], 11/01/2024 08:17:11 10/30/19 25 10/30/2024 ESTRA DIOL estradiol 127 pg/mL Estra diol Refer ence Range Healt hy women Folli cular phase 12.4 - 233 Ovula tion phase 41.0 - 398 Lutea l phase 22.3 - 341 Postm enopa use <5 - 138 Healt hy pregn ant women 1st trime ster 154 - 3243 2nd trime ster 1561 - 92352 3rd trime ster 8525 - >3000 0 Not Available [facility] ([facility]) [address] [facility] [address] Kaiser, [place], [address], 11/01/2024 08:17:11 10/30/19 25 10/30/2024 VITAM IN B12 vitamin B12 352 pg/mL 232-12 45 Not Available [facility] ([facility]) [address] [facility] [address], [place], [address], 11/01/2024 08:17:12 10/30/19 25 10/30/2024 HEMOG LOBIN A1C hemoglobin A1C 5.1 % <5.7 The follo wing HbA1c range s recom paulino d by the Sunil can Diabe kay Assoc iatio n (ADA) may be used as an aid in the diagn osis of diabe kay melli tus. HbA1c Sugge sted Diagn osis >=6.5 % Diabe tic 5.7% - 6.4% Pre-D iabet ic <5.7% Non-D iabet ic Not Available [facility] ([facility]) [facility] [address], [place], [address], 11/01/2024 08:17:12 10/30/19 25 10/30/2024 HEMOG LOBIN A1C estimated average glucose (EAG) 100 mg/dL Estim ated [employer] Gluco se (eAG) is calcu lated using the equat ion eAG = (28.7 x HbA1c ) - 46.7 based on the guide lines estab lispatty phelan by the ADA. If the patie nt has certa in disea ses inclu ding kidne y disea se, sickl e cell anemi a, thala ssemi a, or is takin g medic ation s such as dapso ne, eryth ropoi etin, or iron, eAG shoul d not be evalu ated. Not Available [facility] ([facility]) [address] [place] [address] Dr Kaiser, [place], [address], 11/01/2024 08:17:12 10/30/19 25 10/30/2024 TSH TSH 2.50 mU/L 0.43-5 .25 Not Available [facility] ([facility]) [address] [place] [address] Dr Kaiser, [place], [address], 11/01/2024 08:17:13 10/30/19 25 10/30/2024 DHEA- SULFA TE DHEA-sulfate 124 ug/dL 61-337 Not Available [facility] ([facility]) [address] [place] [address] Dr Kaiser, [place], [address], 11/01/2024 08:17:14 01/19/20 25 01/19/2025 FSH AND LH luteinizing hormone 3.10 mIU/m L LH Refer ence Range Men: 1.7 - 8.6 Women : Folli cular phase 2.4 - 12.6 Ovula tion phase 14.0 - 95.6 Lutea l phase 1.0 - 11.4 Postm enopa use 7.7 - 58.5 Not Available [facility] ([facility]) [facility] [address] Kaiser, [place], [address], 01/19/2025 05:31:53 01/19/20 25 01/19/2025 FSH AND LH FSH 3.73 mIU/m L FSH Refer ence Range Men: 1.5 - 12.4 Women : Folli cular phase 3.5 - 12.5 Ovula tion phase 4.7 - 21.5 Lutea l phase 1.7 - 7.7 Postm enopa use 25.8 - 134.8 Not Available [facility] ([facility]) [facility] [address] Kaiser, [place], [address], 01/19/2025 05:31:53 01/19/20 25 01/19/2025 TESTO STERO NE TOTAL testosterone total 49.00 NG/dL 8.00-4 8.00 high Not Available [facility] ([facility]) [address] [place] [address] Dr Kaiser, [place], [address], 01/19/2025 05:31:54 01/19/20 25 01/19/2025 ESTRA DIOL estradiol 68 pg/mL Estra diol Refer ence Range Healt hy women Folli cular phase 12.4 - 233 Ovula tion phase 41.0 - 398 Lutea l phase 22.3 - 341 Postm enopa use <5 - 138 Healt hy pregn ant women 1st trime ster 154 - 3243 2nd trime ster 1561 - 46821 3rd trime ster 8525 - >3000 0 Not Available [facility] ([facility]) [address] [place] [address] Dr Kaiser, [place], [address], 01/19/2025 05:31:54 01/19/20 25 01/19/2025 DHEA- SULFA TE DHEA-sulfate 117 ug/dL 61-337 Not Available [facility] ([facility]) [address] [facility] [address], [place], [address], 01/19/2025 05:31:55 01/12/20 24 US, obste tric No observ ation record ed. varms Not Available 2023 13:45:39 Result Notes None recorded. Problems Name Problem SNOMED Code Status Onset Date Resolution Date Notes Provider Name and Address Organization Details Recorded Time History of SARS-CoV- 2 [id number] [id number] Completed 202007/28/[address], [place], [address] , [facility] 2 10:34:58 Threatene d miscarria ge 74508340 Active 2022 [facility] 3 11:56:04 23606156 Completed 202301/23/2024 [facility] 4 12:02:10 Dysuria 53806680 Active 2023 [facility] 4 10:58:48 Gestation period, 5 weeks 51058511 Active [address], [place], [address] , [facility] 4 12:38:08 Gestation period, 6 weeks 47002475 Active [address], [place], [address] , [facility] 4 17:34:45 Gestation period, 8 weeks 44804375 Active [address], [place], [address] , [facility] 4 12:54:45 Gestation period, 12 weeks 96822353 Active [address], [place], [address] , [facility] 4 12:11:21 Gestation period, 16 weeks 96567751 Active [address], [place], [address] , [facility] 4 12:21:52 Gestation period, 21 weeks 80665119 Active [address], [place], [address] , [facility] 4 11:15:57 Gestation period, 24 weeks 065352478 Active [address], [place], [address] , [facility] 4 14:36:26 Gestation period, 27 weeks 05139079 Active [address], [place], [address] , [facility] 4 14:19:32 Gestation period, 28 weeks 67618894 Active [address], [place], [address] , [facility] 4 10:09:00 Gestation period, 31 weeks 00599481 Active [address], [place], [address] , [facility] 4 10:23:37 Gestation period, 33 weeks 20963152 Active [address], [place], [address] , [facility] 4 10:00:59 Vitamin deficienc y 37340711 Active [address], [place], [address] , [facility] 5 13:42:30 Vitamin D deficienc y 86717506 Active [address], [place], [address] , [facility] 5 13:42:37 Fatigue 81225393 Active [address], [place], [address] , [facility] 5 13:47:14 Reduced libido 8946313 Active [address], [place], [address] , [facility] 13:47:18 Problem Notes None recorded. Procedures Surgical History Date Name Laterality Status Provider Name and Address Organization Details Recorded Time 04/05/20 24 Endometrial Biopsy completed MD Graciela [address]ran Dr, [place], [address], [facility] 04/05/2024 15:18:55 04/05/20 24 Non-OB ULS completed MD Graciela [address], [place], [address], [facility] 04/05/2024 15:13:03 04/05/20 24 IUD Insertion completed MD Graciela [address], [place], [address], [facility] 04/05/2024 15:17:18 04/05/20 24 Paracervical Block completed Britany [facility] 04/05/2024 13:47:25 02/27/20 24 Other completed MD Graciela [address], [place], [address], [facility] 02/27/2024 10:57:07 01/12/20 24 Obstetrical Care completed MD Graciela [address], [place], [address], [facility] 01/12/2024 13:36:53 11/14/19 24 Injection completed [address], [place], [address], [facility] 11/14/2023 14:19:17 06/09/19 24 Confirmation completed MD Graciela [address], [place], [address], [facility] 06/09/2023 11:51:05 05/17/20 23 Follicular Scan completed MD Graciela [address], [place], [address], [facility] 05/17/2023 15:41:25 04/18/20 23 Follicular Scan completed MD Graciela [address], [place], [address], [facility] 04/18/2023 12:00:57 04/18/20 23 Injection completed MD Graciela [address], [place], [address], [facility] 04/18/2023 12:03:18 03/21/20 23 Follicular Scan completed MD Graciela [address], [place], [address], [facility] 03/21/2023 13:27:50 01/11/20 23 Non-OB ULS completed MD Graciela [address] Dr, [place], [address], [facility] 01/10/2023 10:14:20 05/11/20 22 Non-OB ULS completed MD Graciela [address], [place], [address], [facility] 05/11/2022 10:44:38 03/30/20 22 Date of Last Pap Smear completed [facility] 05/11/2022 09:56:43 05/30/19 13 Date of Last Mammogram completed [facility] 10/29/2024 09:51:04 Caesarean Section completed Britany [facility] 04/05/2024 13:52:02 Tubal Ligation completed [facility] 05/11/2022 09:55:48 Laparoscopy completed Aidee Acuña MD [address], [place], [address], [facility] 05/11/2022 10:36:43 hysteroscopy [...] completed Not Available Not Available Not Available cholecalc iferol (vitamin D3) 125 mcg (5,000 unit) capsule Take 1 capsule every day by oral route as directed for 90 days. 2024 active Not Available Not Available Not Avai lable Clomid 50 mg tablet Take 1 tablet [...] Body mass index (BMI) Body weight Systolic And Diastolic Provider Name and Address Organization Details Last Updated DateTime 10/29/2024 167.64 cm 26.5 kg/m2 14776.15 g 120/84 mm[Hg] [facility] 10/29/2024 09:49:52 Date Recorded Body height Body mass index (BMI) Body weight Systolic And Diastolic Provider Name and Address Organization Details Last Updated DateTime 01/18/2025 167.64 cm 25.6 kg/m2 75214.03 g 104/70 mm[Hg] Susie [facility] 01/18/2025 13:19:19 Date Recorded Body height Body mass index (BMI) Body weight Systolic And Diastolic Provider Name and Address Organization Details Last Updated DateTime 01/23/2024 167.64 cm 29 kg/m2 88801.91 g 126/82 mm[Hg] [facility] 01/23/2024 12:02:55 Date Recorded Body height Body mass index (BMI) Body weight Systolic And Diastolic Provider Name and Address Organization Details Last Updated DateTime 02/27/2024 167.64 cm 28.2 kg/m2 57728.95 g 124/78 mm[Hg] [facility] 02/27/2024 09:25:22 Date Recorded Body height Body mass index (BMI) Body weight Systolic And Diastolic Provider Name and Address Organization Details Last Updated DateTime 04/05/2024 167.64 cm 28.3 kg/m2 21564.38 g 120/82 mm[Hg] [facility] 04/05/2024 13:51:27 Social History Question Answer Notes LastModified by Organizat ion Details LastModified Time Tobacco Smoking Status Former Smoker quit 2016 [facility] 10/26/2023 09:13:18 Do You Use Protection During Sex? No Information not available 07/01/2023 What Is Your Relationship Status? [email or web address] Information not available 07/01/2023 Are You Sexually Active? Yes [email or web address] Information not available 07/01/2023 Sex: Female Functional Status Question Answer Note LastModified by Organizat ion Details LastModified Time Do you use any illicit or recreational drugs? No [email or web address] Information not available 07/01/2023 Do you or have you ever used any other forms of tobacco or nicotine? No [email or web address] Information not available 07/01/2023 What is your level of alcohol consumption? Occasional [email or web address] Information not available 07/01/2023 Mental Status None [...] Diagnosis SNOMED-CT Code Diagnosis ICD10 Code Diagnosis IMO Codes Diagnosis Note 53113 MD AIDEE Ramachandran MD [address] [place] [address] 05/11/2022 09:27:25 05/11/2022 11:09:33 History of tubal ligation 993999706 Z98.51 Trying to conceive 87269 9001 Z31.9 Pre-surger y evaluation 367596257 Z01.818 History of endometriosis 9833664472 1055273 Z87.42 Endometrium thickened 44 9862404 R93.89 Polyp of corpus uteri 11 992268 N84.0 Polycystic ovary syndrome 321457184 E28.2 Vaginal discharge 953408 006 N89.8 will culture via PCL Menorrhagia 624290409 N9 2.0 Dysmenorrhea 526106534 N 94.6 Dyspareunia 57488465 N94 .10 Pain in pelvis 28725932 R10.2 Endometrio sis of pelvis 79088921 N80.30 52185 JASMYNE Norris MD [address] [place] [place] [address] 09/08/2022 09:06:01 09/08/2022 09:47:53 Postoperative visit 173892535 Z09 Family valery nning surveillance 236178936 Z30.09 88015 MD AIDEE Ramachandran MD [address] [place] [place] [address] 01/10/2023 08:58:46 01/10/2023 10:21:03 Polycystic ovary syndrome 666432732 E28.2 Vaginal discharge 504528 006 N89.8 will culture via PCL Complete miscarriage 156 787764 O03.9 96977 MD AIDEE Ramachandran MD [address] [place] [address] 5 03/21/2023 11:52:02 03/21/2023 13:40:53 Family planning surveillance 783904416 Z30.09 24702 MD AIDEE Ramachandran MD [address] [place] [address] 5 04/18/2023 11:02:20 04/18/2023 12:12:50 Family planning surveillance 859497705 Z30.09 49662 MD AIDEE Ramachandran MD [address] [place] [address] 5 05/17/2023 14:41:54 05/17/2023 15:51:16 Family planning surveillance 957079990 Z30.09 67153 MD AIDEE Ramachandran MD [address] [place] [address] 5 06/09/2023 09:58:06 06/09/2023 12:07:15 detection examination 70317666 Z32.00 Venereal d isease screening 228683832 Z11.3 will culture via [facility] 15630 DIEGO Dykes MD [address] [place] [address] 5 06/13/2023 10:52:38 06/13/2023 12:47:48 Dysuria 91967188 O26.899 Sent for culture via [facility] Threatened miscarriage 33707553 O20.0 Gestation period, 5 weeks 18382573 Z3A.01 58929 DIEGO Dykes MD [address] [place] [address] 5 06/17/2023 13:22:32 06/20/2023 16:45:54 Dysuria 31105218 O26.899 Sent for culture via [facility] RhD negative 112417241 Z 01.83 Gestation period, 6 weeks 67955328 Z3A.01 65843 Jessica Mcmahon, MD Graciel[address] [address] 07/01/2023 11:01:52 07/01/2023 13:13:02 Dysuria 67353245 O26.899 RhD negative 441953790 Z Past pregn sravani history of miscarriage 354609272 Z87.59 Gestation period, 8 weeks 74651209 Z3A.08 00188 DIEGO Dykes MD [address] [place] [address] 5 07/29/2023 10:24:47 07/29/2023 12:28:37 Dysuria 10428940 O26.899 Sent for culture via [facility] Gestation period, 12 weeks 65557136 Z3A.12 RhD negative 671691636 Z Past pregn sravani history of miscarriage 010312646 Z87.59 46418 DIEGO Dykes MD [address] [place] [address] 5 08/26/2023 10:41:50 08/26/2023 12:30:19 Dysuria 69139934 O26.899 Sent for culture via [facility] RhD negative 391225141 Z Past pregn rsavani history of miscarriage 308700322 Z87.59 Gestation period, 16 weeks 09119204 Z3A.16 History of tubal ligation 135884238 Z98.51 tubal reinastomo sis 88292 JASMYNE Marie MD [address] [place] [address] 5 09/30/2023 09:57:38 09/30/2023 11:34:10 Dysuria 06451426 O26.899 Gestation period, 21 weeks 41443417 Z3A.21 12408 DIEGO Dykes MD [address] [place] [address] 5 10/26/2023 09:00:33 10/26/2023 14:41:42 Dysuria 37416253 O26.899 Sent for culture via [facility] RhD negative 135648842 Z 01.83 Past pregn sravani history of miscarriage 374002317 Z87.59 History of tubal ligation 260425191 Z98.51 tubal reanastomo sis Past pregn sravani history of section 830494986 Z98.890 Gestation period, 24 weeks 087580121 Z3A.24 68064 MD AIDEE Ramachandran MD [address] [place] [address] 5 10/27/2023 10:29:17 10/27/2023 13:27:06 Blood in urine 83008673 R31.9 Anemia of 2734 2004 O99.019 la bor without delivery 3502956917 7937812 O60.02 Candidiasis of vagina 72 026656 B37.31 Microscopic hematuria 19 1237237 R31.29 Premature labor 6564032 Z36.86 91123 DIEGO Dykes MD [address] [place] [address] 5 11/14/2023 13:18:53 11/14/2023 15:16:30 RhD negative 899838094 Z01.83 Gestation period, 27 weeks 84997164 Z3A.27 Past pregn sravani history of miscarriage 622563105 Z87.59 Past pregn sravani history of section 491833189 Z98.890 History of tubal ligation 993839153 Z98.51 tubal reanastomo sis 59563 JASMYNE Marie MD [address] [place] [address] 5 11/18/2023 09:06:23 11/18/2023 10:52:41 Dysuria 84503960 O26.899 Gestation period, 28 weeks 77274611 Z3A.28 60265 DIEGO Dykes MD [address] [place] [address] 5 12/14/2023 09:27:12 12/14/2023 10:50:24 Dysuria 48630453 O26.899 Sent for culture via [facility] Gestation period, 31 weeks 18937212 Z3A.31 Past pregn sravani history of section 326734583 Z98.890 RhD negative 259457777 Z 01.83 History of tubal ligation 068297733 Z98.51 tubal reanastomo sis Past pregn sravani history of miscarriage 319881894 Z87.59 38593 DIEGO Dykes MD [address] [place] [address] 5 12/29/2023 11:32:59 01/02/2024 09:59:01 Dysuria 83528809 O26.899 Gestation period, 33 weeks 30363733 Z3A.33 Past pregn sravani history of section 288790042 Z98.890 RhD negative 408951116 Z 01.83 Past pregn sravani history of miscarriage 816421479 Z87.59 History of tubal ligation 496844132 Z98.51 tubal reanastomo sis 79586 MD AIDEE Ramachandran MD [address] [place] [address] 5 01/12/2024 12:07:03 01/12/2024 13:40:00 Gestation period, 36 weeks 39315566 Z3A.36 Viable fet us in abdominal 727152623 O36.73X1 [place] Hi cks contractions 71073300 O47.03 Polyhydramnios 64330679 O40.3XX1 21844 DIEGO Dykes MD [address] [place] [address] 01/23/2024 11:34:33 01/23/2024 18:45:26 Family planning surveillance 696622725 Z30.09 state 0161103 1 Z39.2 64804 MD AIDEE Ramachandran MD [address] [place] [address] 5 02/27/2024 09:02:00 02/27/2024 11:01:04 state 40903506 Z39.2 Galactocel e associated with childbirth 52936823 O92.79 Vaginal discharge 621342 006 N89.8 will culture via PCL 86424 MD AIDEE Ramachandran MD [address] [place] [address] 04/05/2024 12:59:51 04/05/2024 15:34:06 Insertion of intrauterine contraceptive device 61283848 Z30.430 Endometrium thickened 44 2038462 R93.89 04401 MD AIDEE Ramachandran MD [address] [place] [address] 10/29/2024 09:41:21 10/29/2024 11:01:23 Gynecologic examination 08676842 Z01.949 4462876 Drug therapy finding 309 655420 Z79.890 22144111 Multinodular goiter 2375 01838 E04.2 43199 Inflammati on of cervix 38926440 N72 69430 Polycystic ovary syndrome 127874659 E28.2 843239 723002 DIEGO Dykes MD [address] [place] [address] 01/18/2025 12:57:24 01/24/2025 16:07:34 Vitamin D deficiency 38112197 E55.9 45788 Hormone re placement therapy 365059138 Z79.890 Fatigue 78632728 R53.83 5571721 Reduced libido 2609911 R 68.82 24447497 Health Concerns Section Related Observation LastModified by Organization Detai ls LastModified Time None Recorded Concern Status LastModified by Organization Details LastModified Time None Recorded Advance Directives Directive None Recorded Payers Encounter Date Sequence Insurance Name Policy Number Policy Gomez Covered Member ID Gomez Member ID Guarantor Name 01/23/2024 1 [place] [id number] 3 Ophelia R Ramirez [id number] Ophelia Lucille Ramirez 02/27/2024 1 [place] [id number] 3 Ophelia R Ramirez [id number] Ophelia Lucille Ramirez 04/05/2024 1 [place] [id number] 3 Ophelia R Ramirez [id number] Ophelia Lucille Ramirez 10/29/2024 1 [place] [id number] 3 Ophelia Bustamanteye [id number] Ophelia Ramirez 01/18/2025 1 [place] [id number] 3 Ophelia Bustamanteye [id number] Ophelia Ramirez Notes Date Note Type Note Provider Name and Address Organization Details Recorded Time 4 text/html VisitReported by PatientHPIFor quality, patient reportsprimary c/sandrepeat c/s. For context, patient reportsno complications,feeding choice: breast and bottle,good support from partner/family, andresumed sexual activity no. For associated symptoms, patient reportsno abnormal bleeding,no vaginal discharge,no pelvic pain,laceration well healed,no constipation,no fecal incontinence,no dysuria,no urinary incontinence,no fever,no problems,no mastitis,normal mood, andno uterine cramping. For contraception plan, patient reportsprogesterone only pill.ROS as noted in the HPI [address], [place], [address], [facility] 01/23/2024 18:35:25 4 text/html VisitReported by Patient 38 y/o presents for post- visit. She had a repeat of a healthy baby boy (Hiram) with Dr. Acuña. MD [address], [place], [address], [facility] 02/27/2024 11:01:32 4 text/html Patient presents for IUD insertion. IUD is Mirena. MD [address]a [address], [place], [address], [facility] 04/05/2024 15:32:33 5 text/html Pt is here for an annual exam. She states that she would like to be put back on Metformin. Pt states since she had her Mirena put in she doesn't have abnormal cycles, but she does have some spotting. She reports low libido, and abnormal hair loss. Aidee Acuña MD [address], [place], [address], [place] [facility] 10/29/2024 11:01:00 5 text/html ROS as noted in the HPI Jessica Mcmahon PA-C [address], [place], [address], [place] [facility] 01/18/2025 15:53:31 OBGyn Episode Ob Episode Information Episode Created Date Number of Fetuses Patient Bloodtype Patient rh Status Prepregnancy Weight lbs Domestic Partner Domestic Partner Phone Father Name [employer]ing [employer] Sales Associate Status 06/09/19 24 1 A Negative CLOSED Fetus Data First Name Last Name Admitted to NICU Weight (g) Sex Living Outcome Pediatric Complications Fetus ID Race Codes Race Delivery Type Hiram Ramirez true 3288.54 2 M true Prematur e needed oxygen 4 6-3 White Brannon Calculation Initial Brannon Date Initial [...] in lbs Pre/Post Dialysis Refused With clothes 161.046006041454 BP Diastolic BP Location Tested BP Systolic BP Type 70 L arm 126 sitting Fetus Heart Rate Present Fetus Movement Comments Flowsheet Date 06/13/2023 Thomas Score Blood Edema Fundus Height Fundus Units Glucose Ketones Leukocytes Nitrite Labor Signs Protein Cervic Dilation Cervic Effacement Cervic Station neg none none none Negative neg Type Weight in lbs Pre/Post Dialysis Refused With clothes 160.34434656743 BP Diastolic BP Location Tested BP Systolic [...] in lbs Pre/Post Dialysis Refused With clothes 162.619221103505 BP Diastolic BP Location Tested BP Systolic [...] in lbs Pre/Post Dialysis Refused With clothes 167.686087199460 BP Diastolic BP Location Tested BP Systolic [...] in lbs Pre/Post Dialysis Refused With clothes 171.016896260196 BP Diastolic BP Location Tested BP Systolic [...] Urine dipstick negative, sent for culture via [facility]. Denies bleeding. Denies loss of fluids. Denies [...] in lbs Pre/Post Dialysis Refused With clothes 173.929412624160 BP Diastolic BP Location Tested BP Systolic [...] sooner if needed. She is going to [place] in October for vacation! Flowsheet Date 09/30/2023 Thomas Score Blood Edema Fundus Height Fundus Units Glucose Ketones Leukocytes Nitrite Labor Signs Protein Cervic Dilation Cervic Effacement Cervic Station Type Weight in lbs Pre/Post Dialysis Refused With clothes 177.770733304012 BP Diastolic BP Location Tested BP Systolic [...] in lbs Pre/Post Dialysis Refused With clothes 182.462286579946 BP Diastolic BP Location Tested BP Systolic [...] dipstick negative, urine sent for culture via [facility]. Denies bleeding, loss of fluids, and contractions. [...] in lbs Pre/Post Dialysis Refused With clothes 182.06491464128 BP Diastolic BP Location Tested BP Systolic [...] noted. No complaints verbalized by patient. Lot: [id number]. Exp: 05-19-2026. Flowsheet Date 11/18/2023 Thomas Score Blood Edema Fundus Height Fundus Units Glucose Ketones Leukocytes Nitrite Labor Signs Protein Cervic Dilation Cervic Effacement Cervic Station Type Weight in lbs Pre/Post Dialysis Refused With clothes 185.238921743809 BP Diastolic BP Location Tested BP Systolic [...] in lbs Pre/Post Dialysis Refused With clothes 192.642688244084 BP Diastolic BP Location Tested BP Systolic BP Type 70 L arm 120 sitting Fetus Heart Rate Present A 136 Present Fetus Movement A Yes Comments 37 y/o F here today for routine OB apt. She is 32 weeks and 5/7 days GA. Reports increased pelvic pressure, sharp pelvic pain, melanie concepcion that resolve and are inconsistent. Cervix check performed today, 0cm/0%/-4. Previously she has gone into labor without induction at 37 weeks GA. Recommended massages and binder. Taking PNV daily, iron daily, and folic acid daily. Urine dipstick negative, sent for culture via [facility]. Denies bleeding. Denies loss of fluids. FHT [...] in lbs Pre/Post Dialysis Refused With clothes 191.770590520388 BP Diastolic BP Location Tested BP Systolic [...] in lbs Pre/Post Dialysis Refused With clothes 195.216765283016 BP Diastolic BP Location Tested BP Systolic [...] that she thinks she's been experiencing some melanie concepcion contractions. Spec exam reveals no bleeding. [...] in lbs Pre/Post Dialysis Refused With clothes 194.700372364388 BP Diastolic BP Location Tested BP Systolic [...] in lbs Pre/Post Dialysis Refused With clothes 179.39215897528 BP Diastolic BP Location Tested BP Systolic [...] Regional-Sp inal 36.3 Low Transvers e true magdalendamion acuña None false Discharge Information Feeding Method Contraceptive Method Maternal HG B and HCT Levels
--- OUTSIDE RECORDS SUMMARY | 2025-04-10 12:31 | XMS_ITS | Referral Summary ---
Author Organization [employer] ([place], [place], [place], [place], [place]) Address [address] [place] [address] Care Team Providers Care Washer Repairman Name Role Phone [facility], Provider Not In The System MD Primary Care Provider Unavailable Allergies No known [...] drink = 0.6 oz pur e alcohol) raPiqniq Answer Date Recorded In the past 12 [...] Do you speak a language other than [place] at [facility]? No 01/16/2024 Do you want help with school or training? For example, starting or completing job training or getting a high school diploma, GED or equivalent. No 01/16/2024 Physical Activity Answer Date Recorded Number of minutes of exercise per week 0 01/16/2024 Self Management Answer Date Recorded Because of a physical, [...] Assessment Author No 01/20/2024 7:59 PM CDT Regan Villalta RN * Do you have serious [...] on file Medical Devices Implanted Type Area Chief Physical Therapist Device Identifier Shelf Expiration Date Model / Serial / Lot Grafix Pl Prime 3x4 Cm [id number] - [id number] Implanted:Qty : 1 on 08/06/2022 by Aidee Acuña MD at [facility] IMPLANTS N/A: [employer]vis [employer] 03/31/2024 [id number] / [id number] Insurance [employer] BLUE CROSS/BLUE SHIELD Advance Directives For more information, please contact: [phone] * Full Code (Latest Code Status on File) Date Activated Date Inactivated Comments 01/16/2024 3:21 PM 01/16/2024 9:45 PM * Full Code Date Activated Date Inactivated Comments 08/06/2022 6:15 AM 10/02/2022 11:50 AM * Full Code Date Activated Date Inactivated Comments 08/06/2022 5:16 AM 08/06/2022 6:15 AM Care Teams Washer Repairman Relationship Specialty Start Date End Date Yan[facility], Provider Not In The System, [place] [address] PCP - General 01/16/24
--- OUTSIDE RECORDS SUMMARY | 2025-04-10 12:31 | XMS_ITS | Clinical Summary ---
Author Organization Healthcare Address [address] [id number] Care Team Providers Care Field Service Tech Name Role Phone Unavailable Primary Care Provider [...] 05/15/2023 12:18 PM EST Plan of Treatment Not on file Insurance ANTHEM
--- OUTSIDE RECORDS SUMMARY | 2025-04-10 12:31 | XMS_ITS | Clinical Summary ---
Author Organization [employer] ([place], [place], [place], [place], [place]) Address [address] [place] [address] Care Team Providers Care Handle Bender Name Role Phone [facility], Provider Not In The [...] drink = 0.6 oz pur e alcohol) raely Utilities Answer Date Recorded In the past [...] Do you speak a language other than [place] at [facility]? No 01/16/2024 Do you want help with [...] Health Maintenance Due Date Last Done Comments Depression Screening (12+) 1999 HIV Screening 12/29/2002 Hepatitis C Screening 12/29/2005 DTAP/TDAP/TD VACCINES (1 - Tdap) 12/29/2006 Lipid Panel 2007 Pap Smear 12/29/2008 Tobacco Cessation Counseling and Screening (12+) 01/16/2025 01/17/2024 COVID-19 VACCINE (3 - 2024-2 6 season) 2025 09/19/2020, 08/19/2020 Influenza Vaccine (#1) 2025 01/29/2020 Pneumococcal Vaccine: 0-49 Years Aged Out No longer eligible b ased on patient's age to complete this topic Medical Devices Implanted Type Area Manager Grocery Device Identifier Shelf Expiration Date Model / Serial / Lot Grafix Pl Prime 3x4 Cm [id number] - [id number] Implanted:Qty : 1 on 08/06/2022 by Aidee Acuña MD at [facility] IMPLANTS N/A: [employer]vis [employer] 03/31/2024 [id number] / [id number] / [id number] 2 [place] [id number] BLUE CROSS/BLUE SHIELD Advance Directives For more information, please contact: [phone] * Full Code (Latest Code Status on File) Date Activated Date Inactivated Comments 01/16/2024 3:21 PM 01/16/2024 9:45 PM * Full Code Date Activated Date Inactivated Comments 08/06/2022 6:15 AM 10/02/2022 11:50 AM * Full Code Date Activated Date Inactivated Comments 08/06/2022 5:16 AM 08/06/2022 6:15 AM Care Teams Handle Bender Relationship Specialty Start Date End Date [facility], Provider Not In The System, [place] [address] PCP - General 01/16/24
--- OUTSIDE RECORDS SUMMARY | 2025-04-10 12:31 | XMS_ITS | Clinical Summary ---
Author Organization [facility] Address [address] [place] [address] Care Team Providers Care Recovery Room Nurse Name Role Phone Kingston Montiel MD Primary Care Provider [phone] Allergies Active Allergy Reactions Criticality Noted Date Comments Nitrofurantoin Monohyd Macro Rash Low 017 Tramadol-Acetaminophen GI Intolerance 7 Medications metFORMIN (GLUMETZA) 500 MG (MOD) 24 hr tablet metformin ER 500 mg 24 hr tablet,extended release Take 3 tablets every day by oral route with evening meal for 30 days. Take 1 tablet with evening meal for one week, 2 tablets with meal on second week, and 3 tablets with meal on week three. Continue at 3 pills with evening meal Active Levonorgestrel (Mirena, 52 MG,) 20 MCG/DAY intrauterine device IUD Take by intrauterine route. 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 She mentions that she may also have the addition of testosterone to her treatment regimen. Keep follow-up with gynecology Rash 11/08/2024 Assessment & Plan (11/08/2024 11:43 AM EDT): Approximately 1 week history of a progressive rash, blotchy, raised, slight scaly appearance, and pruritic nontender. Only no new exposure relates to metformin which she indicates she just recently started after development of the rash. Diagnosis would include viral trigger related to her URI, but based characteristics less likely, either representing pityriasis rosea versus pityriasis versicolor. Unlikely side effect of the metformin as she reports starting the metformin after the rash developed. Treat empirically with prednisone given pruritus, topical ketoconazole shampoo dosing technique discussed, observing whether or not rash symptoms resolve over the next week or for any acute worsening, at which point we will then discontinue the metformin on a trial basis. Viral URI with cough 11/08/2024 Assessment & Plan (11/08/2024 11:41 AM EDT): 1.5 weeks of a viral URI that by history is improving, clinically appears to be very mild and symptoms at this time. Symptomatic treatment as needed anticipating complete resolution over the next several days Dyspareunia due to medical condition in female 0 08/05/2022 Breast lump on right side at 11 o'clock position 06/11/2022 Assessment & Plan (06/11/2022 1:08 PM EST): Lump in her right breast that she first noticed 2 months ago. She reports the lump is tender at times, but not all the time. She has had to undergo needle biopsy at the age of 17 which was benign. She denies high caffeine intake. Denies any change in nipple appearance or nipple discharge, no redness or swelling of the breast. She has positive breast cancer history in maternal grandmother. She does not get regular mammograms. On exam soft, movable lump noted at the 11 o'clock position. -Refer for breast ultrasound -We discussed given her family history of maternal breast cancer she may benefit from genetic counseling and subsequent BRCA gene testing, he is quite interested and agreeable. -Refer to [facility] genetics for further evaluation Allergic rhinitis 02/04/2022 Anxiety 02/04/2022 Asthma 02/04/2022 Depression 02/04/2022 Thyroid nodule 02/04/2022 Overview (02/04/2022): BENIGN Lumbago 02/04/2022 Overview (02/04/2022): ACUTE,RIGHT Thyroid nodule 02/04/2022 Overview (02/04/2022): BENIGN Pain in left foot 02/04/2022 Pain in left knee 02/04/2022 Pain of joint of left ankle and foot 02/04/2022 Immunizations Immunization Administration Dates Next Due 31-influenza Vac Quardvalent Preservativ 020 COVID-19 (MODERNA) 1st,2nd,3rd Dose Monovalent 0 09/19/2020,08/19/2020 Fluzone Quad >6mos (Multi-dose) 01/29/2020 Influenza, Unspecified 04/01/2017 Family History Medical History Relation Name Comments Thyroid disease Mother Relation Name Status Comments Father Alive Mother Alive Social History Tobacco Use Types Packs/Day Years Used Date Smoking Tobacco: Every Day Cigarettes 0.3 12 Smokeless Tobacco: Never Tobacco Cessation:Ready to Q uit: Not Asked; Counseling Given: Not Answered Alcohol Use Standard Drinks/Week Comments Yes 0 (1 standard drink = 0.6 oz pur e alcohol) PHQ-2 Answer Date Recorded Retired PHQ-9: Brief Depression Severity Measure Score 0 06/11/2022 PHQ-2 Answer Date Recorded Patient Health Questionnaire-2 Score 0 11/08/2024 Comments No Sex and Gender Information Value Date Recorded Sex Assigned at Not on file Legal Sex Female 3:29 PM EDT Gender Identity Not on file Sexual Orientation Not on file Last Filed Vital Signs Vital Sign Reading Time Taken Comments Blood Pressure 118/74 11/08/2024 9:37 AM EDT Pulse 100 11/08/2024 9:37 AM EDT Temperature 36.6 C (97.9 F) 11/08/2024 9:37 AM EDT Respiratory Rate 18 06/11/2022 8:54 AM EST Oxygen Saturation 99% 11/08/2024 9:37 AM EDT Inhaled Oxygen Concentration - - Weight 72.6 kg (160 lb) 11/08/2024 9:37 AM EDT Height 167.6 cm (5' 6 ) 11/08/2024 9:37 AM EDT Body Mass Index 25.82 11/08/2024 9:37 AM EDT Plan of Treatment Health Maintenance Due Date Last Done Comments Annual Gynecologic Pelvic an d Breast Exam 1987 Pneumococcal Vaccine 0-49 (1 of 2 - PCV) 12/29/2006 TDAP/TD VACCINES (1 - Tdap) 12/29/2006 PAP SMEAR 12/29/2008 ANNUAL PHYSICAL 09/17/2016 INFLUENZA VACCINE 12/28/2024 01/29/2020, , 04/01/2017 HEPATITIS C SCREENING Completed 05/15/2023 Insurance [facility] PPO Care Teams Recovery Room Nurse Relationship Specialty Start Date End Date Kingston Montiel MD [address] [place] [address] [place] [id number] PCP - General Internal Medicine 08/13/16
--- OUTSIDE RECORDS SUMMARY | 2025-04-10 12:32 | XMS_ITS | Data Portability ---
Author Organization [facility] Mauro ARMONK CLOSED Address [address] [place] [address] Assessment No assessment recorded. Plan of Treatment Reminders Order Date Submit Date Provider Last Modified By Organization Details Last Modified Time Details Appointments None recorded. Lab bacterial vaginosis + vaginitis panel, vaginal 2020 [facility] [address] [place] [address], [address], 23:34:17 mycoplasma + ureaplasma DNA, unspecified specimen 2020 [facility] [address] [place] [address], [address], 23:34:17 prolactin, serum 2020 [facility], [address] [place] [address], [address], 14:05:27 CT + NG RNA, PCR, unspecified specimen 2020 021 [facility], [address] [place] [address], [address], 07:26:18 trichomonas vaginalis RNA, Pap vial 2020 [facility], [address] [place] [address], [address], 06/26/202 1 14:06:21 general health panel 2020 021 [facility], [address] [place] [address], [address], 1 11:45:47 cytology, vaginal/cer vical 2020 021 [facility], [address] [place] [address], [address], 1 11:32:48 HPV DNA, high-risk 2020 021 [facility], [address] [place] [address], [address], 1 08:22:38 urinalysis, dipstick, auto 2016 017 [email or web address] [facility], [address], [place], [address], 7 16:59:43 cytology, vaginal/cer vical 2016 017 [email or web address] [facility], [address] [place] [address], [address], 7 16:10:47 HPV DNA, high-risk 2016 017 [facility], [address] [place] [address], [address], 7 15:47:37 CT + NG RNA, PCR, unspecified specimen 2016 017 [facility], [address] [place] [address], [address], 7 16:55:20 Referral gynecologis t referral - veloudis tubal reversal 2021 022 [email or web address] 1 Russ Robertson Jr, [address], [address], [place], [address], 2 08:51:01 Procedures None recorded. Surgeries None recorded. Imaging US, neck, soft tissue 2020 021 [facility], [address], [place], [address], 12:11:39 Medication Orders Vibramycin 100 mg capsule 2020 021 [facility], [address] [place], [address], 1 08:24:20 Flagyl 500 mg tablet 2020 021 [facility], [address] [place], [address], 1 08:24:25 ceftriaxone 500 mg solution for injection 2020 021 [facility], [address] [place], [address], 2 08:10:26 Linzess 72 mcg capsule 2017 018 [email or web address] [facility], [address] [place], [address], 1 08:53:41 Taytulla 1 mg-20 mcg (24)/75 mg (4) capsule 2016 017 [facility], [address] [place], [address], 8 08:44:18 Patient TargetsNo targets recorded. Patient Instructions Encounter Date Encounter Id Patient Instructions Last Modified By Organization Details Last Modified Time 02/17/2017 [id number] constipation: care instructions HELEN Not available 02/17/2017 17:35:40 endometriosis: care instructions HELEN Not available 02/17/2017 17:37:59 specimen collection & handling* [email or web address] Not available 02/17/2017 16:59:43 painful menstrua l cramps: care instructions HELEN Not available 02/17/2017 17:36:22 07/01/2017 [id number] Spent 10 total minutes with the patient today in counseling regarding information documented in my assessment and plan above. The time represents more than 50% of the encounter. [email or web address] Not available 07/01/2017 09:30:54 Reason for Referral Strategic Account Executive Referral for Hi story of tubal ligation veloudis tubal reversal Referring Physician: Kaykay Rosales, MESSAGE CLERK, Encounter Date: 11/24/2021 Results Created Date Observation Date Name Description Value Unit Range Abnormal Flag Note LastModifiedBy Organization Detail LastModifiedTime 02/18/20 17 02/17/2017 urina lysis , dipst ick, auto Unknown Analyte Yellow Not Available [address], [place], [address], 02/17/2017 14:11:37 02/18/20 17 02/17/2017 urina lysis , dipst ick, auto Unknown Analyte Hazy Not Available [address], [place], [address], 02/17/2017 14:11:37 02/18/20 17 02/17/2017 urina lysis , dipst ick, auto Unknown Analyte 1.020 Not Available [address], [place], [address], 02/17/2017 14:11:37 02/18/20 17 02/17/2017 urina lysis , dipst ick, auto Unknown Analyte 1.003 - 1.035 Not Available [address], [place], [address], 02/17/2017 14:11:37 02/18/20 17 02/17/2017 urina lysis , dipst ick, auto Unknown Analyte 6.0 Not Available [address], [place], [address], 02/17/2017 14:11:37 02/18/20 17 02/17/2017 urina lysis , dipst ick, auto Unknown Analyte 5.0 - 8.0 Not Available [address], [place], [address], 02/17/2017 14:11:37 02/18/20 17 02/17/2017 urina lysis , dipst ick, auto Unknown Analyte 75 Kenia/ul (+) Not Available [address], [place], [address], 02/17/2017 14:11:37 02/18/20 17 02/17/2017 urina lysis , dipst ick, auto Unknown Analyte Negati ve Not Available [address], [place], [address], 02/17/2017 14:11:37 02/18/20 17 02/17/2017 urina lysis , dipst ick, auto Unknown Analyte Negati ve Not Available [address], [place], [address], 02/17/2017 14:11:37 02/18/20 17 02/17/2017 urina lysis , dipst ick, auto Unknown Analyte Negati ve Not Available [address], [place], [address], 02/17/2017 14:11:37 02/18/20 17 02/17/2017 urina lysis , dipst ick, auto Unknown Analyte Negtiv e Not Available [address], [place], [address], 02/17/2017 14:11:37 02/18/20 17 02/17/2017 urina lysis , dipst ick, auto Unknown Analyte Negati ve - Trace Not Available [address], [place], [address], 02/17/2017 14:11:37 02/18/20 17 02/17/2017 urina lysis , dipst ick, auto Unknown Analyte Normal Not Available [address], [place], [address], 02/17/2017 14:11:37 02/18/20 17 02/17/2017 urina lysis , dipst ick, auto Unknown Analyte Normal Not Available [address], [place], [address], 02/17/2017 14:11:37 02/18/20 17 02/17/2017 urina lysis , dipst ick, auto Unknown Analyte Negati ve Not Available [address], [place], [address], 02/17/2017 14:11:37 02/18/20 17 02/17/2017 urina lysis , dipst ick, auto Unknown Analyte Negati ve Not Available [address], [place], [address], 02/17/2017 14:11:37 02/18/20 17 02/17/2017 urina lysis , dipst ick, auto Unknown Analyte Normal Not Available [address], [place], [address], 02/17/2017 14:11:37 02/18/20 17 02/17/2017 urina lysis , dipst ick, auto Unknown Analyte Normal - 1mg/dl Not Available [address], [place], [address], 02/17/2017 14:11:37 02/18/20 17 02/17/2017 urina lysis , dipst ick, auto Unknown Analyte 1 mg/dl (+) Not Available [address], [place], [address], 02/17/2017 14:11:37 02/18/20 17 02/17/2017 urina lysis , dipst ick, auto Unknown Analyte Negati ve Not Available [address], [place], [address], 02/17/2017 14:11:37 02/18/20 17 02/17/2017 urina lysis , dipst ick, auto Unknown Analyte Negati ve Not Available [address], [place], [address], 02/17/2017 14:11:37 02/18/20 17 02/17/2017 urina lysis , dipst ick, auto Unknown Analyte Negati ve Not Available [address], [place], [address], 02/17/2017 14:11:37 02/18/20 17 02/17/2017 urina lysis , dipst ick, auto Unknown Analyte Clean Catch Not Available [address], [place], [address], 02/17/2017 14:11:37 02/18/20 17 02/17/2017 urina lysis , dipst ick, auto Unknown Analyte Automa jennifer Not Available [address], [place], [address], 02/17/2017 14:11:37 02/18/20 17 02/17/2017 speci men colle ction & handl ing* Pap smear collection performed. 7 Not Available [address] [place] [address], [address], 02/17/2017 13:50:12 02/18/20 17 02/21/2017 CT + NG RNA, PCR, unspe cifie d speci men chlamydia trachomatis NOT DETECT ED not detect ed normal Not Available [facility] [address] [place] [address], [address], 02/21/2017 16:55:19 02/18/20 17 02/21/2017 CT + NG RNA, PCR, unspe cifie d speci men N. gonorrhoeae NOT DETECT ED not detect ed normal Not Available [facility] [address] [place] [address], [address], 02/21/2017 16:55:19 02/18/20 17 02/21/2017 CT + NG RNA, PCR, unspe cifie d speci men comment SEE BELOW normal This test was perfo rmed using the APTIM A COMBO 2 Assay ([employer] . The maty tical perfo rmanc e franklin cteri stics of this assay , when used to test SureP ath speci mens have been deter mined by [employer] juan antonio schulte. TEST PERFO RMED AT: [facility] [address] [address] JEFFERY Schulte MD Not Available [facility] [address] [place], [address], 02/21/2017 16:55:19 02/18/20 17 02/22/2017 HPV DNA, [...] DI[facility]N [facility] - [facility] [address] [place] [address] JEFFERY Schulte MD Not Available [facility] [address] [place], [address], 02/22/2017 15:47:37 02/18/20 17 02/17/2017 cytol ogy, vagin al/ce rvica l gynecologica l cytology procedure SEE BELOW [facility] Depar tment of Patho logy GYNEC OLOGI RUFINA CYTOL OGY REPOR T NAME: SHA MEJIA ANY PATHO LOGY NO.: [id number] Copy to: [facility] E OF SPECI MEN: CERVI RUFINA/E NDOCE RVICA L-THI N PREP RELEV ANT [...] Nikia d Out Date: 02/24 16:25 Cervi rufina/v agina l cytol ogy is a scree [...] to shivam t in prima ry cervi rufina cance r scree chepe of ThinP rep(R ) Pap test slide s. 1 Not Available [facility] [address] [place], [address], 02/24/2017 16:27:04 11/20/19 21 11/19/2020 gener al healt h panel glucose 105 mg/dL 74-100 high Not Available [facility] [address] [place] [address], [address], 11/19/2020 14:17:24 11/20/19 21 11/19/2020 gener al healt h panel blood urea nitrogen 8 mg/dL 6-20 normal Not Available [facility] [address] [place] [address], [address], 11/19/2020 14:17:24 11/20/19 21 11/19/2020 gener al healt h panel creatinine 0.55 mg/dL 0.50-0 .95 normal Not Available [facility] [address] [place] [address], [address], 11/19/2020 14:17:24 11/20/19 21 11/19/2020 gener al healt h panel BUN/creatini ne ratio 15 (calc ) 10-20 normal Not Available [facility] [address] [place] [address], [address], 11/19/2020 14:17:24 11/20/19 21 11/19/2020 gener al healt h panel sodium 140 mmol/ L 136-14 5 normal Not Available [facility] [address] [place] [address], [address], 11/19/2020 14:17:24 11/20/19 21 11/19/2020 gener al healt h panel potassium 3.9 mmol/ L 3.4-5. 0 normal Not Available [facility] [address] [place] [address], [address], 11/19/2020 14:17:24 11/20/19 21 11/19/2020 gener al healt h panel chloride 104 mmol/ L 98-107 normal Not Available [facility] [address] [place] [address], [address], 11/19/2020 14:17:24 11/20/19 21 11/19/2020 gener al healt h panel carbon dioxide 25 mmol/ L 22-31 normal Not Available [facility] [address] [place] [address], [address], 11/19/2020 14:17:24 11/20/19 21 11/19/2020 gener al healt h panel anion gap 11 (calc ) 7-25 normal Not Available [facility] [address] [place] [address], [address], 11/19/2020 14:17:24 11/20/19 21 11/19/2020 gener al healt h panel calcium 9.2 mg/dL 8.6-10 .2 normal Not Available [facility] [address] [place] [address], [address], 11/19/2020 14:17:24 11/20/19 21 11/19/2020 gener al healt h panel total protein 7.0 g/dL 6.4-8. 3 normal Not Available [facility] [address] [place] [address], [address], 11/19/2020 14:17:24 11/20/19 21 11/19/2020 gener al healt h panel albumin 4.4 g/dL 3.5-5. 2 normal Not Available [facility] [address] [place] [address], [address], 11/19/2020 14:17:24 11/20/19 21 11/19/2020 gener al healt h panel globulin 2.6 g/dL_ (calc ) 1.5-4. 5 normal Not Available [facility] [address] [place] [address], [address], 11/19/2020 14:17:24 11/20/19 21 11/19/2020 gener al healt h panel albumin/glob ulin ratio 1.7 (calc ) 1.1-2. 5 normal Not Available [facility] [address] [place] [address], [address], 11/19/2020 14:17:24 11/20/19 21 11/19/2020 gener al healt h panel bilirubin, total 0.4 mg/dL 0.1-1. 2 normal Not Available [facility] [address] [place] [address], [address], 11/19/2020 14:17:24 11/20/19 21 11/19/2020 gener al healt h panel alkaline phosphatase 58 U/L 35-106 normal Not Available [facility] [address] [place] [address], [address], 11/19/2020 14:17:24 11/20/19 21 11/19/2020 gener al healt h panel AST 12 U/L 0-32 normal Not Available [facility] [address] [place] [address], [address], 11/19/2020 14:17:24 11/20/19 21 11/19/2020 gener al healt h panel ALT 8 U/L 0-33 normal Not Available [facility] [address] [place] [address], [address], 11/19/2020 14:17:24 11/20/19 21 11/19/2020 gener al healt h panel GFR 143 >= 60 normal Not Available [facility] [address] [place] [address], [address], 11/19/2020 14:17:24 11/20/19 21 11/19/2020 gener al [...] s/KDO QI/gf r_cal culat orPed Not Available [facility] [address] [place] [address], [address], 11/19/2020 14:17:24 11/20/19 21 11/19/2020 gener al healt h panel white blood cells 5.7 K/uL 3.8-10 .8 normal Not Available [facility] [address] [place] [address], [address], 11/19/2020 14:17:24 11/20/19 21 11/19/2020 gener al healt h panel red blood cells 4.21 M/uL 3.80-5 .20 normal Not Available [facility] [address] [place] [address], [address], 11/19/2020 14:17:24 11/20/19 21 11/19/2020 gener al healt h panel hemoglobin 13.7 g/dL 12.0-1 6.0 normal Not Available [facility] [address] [place] [address], [address], 11/19/2020 14:17:24 11/20/19 21 11/19/2020 gener al healt h panel hematocrit 39.2 % 35.0-4 7.0 normal Not Available [facility] [address] [place] [address], [address], 11/19/2020 14:17:24 11/20/19 21 11/19/2020 gener al healt h panel MCV 93 fL 80-100 normal Not Available [facility] [address] [place] [address], [address], 11/19/2020 14:17:24 11/20/19 21 11/19/2020 gener al healt h panel MCH 33 pg 26-35 normal Not Available [facility] [address] [place] [address], [address], 11/19/2020 14:17:24 11/20/19 21 11/19/2020 gener al healt h panel MCHC 35 g/dL 32-36 normal Not Available [facility] [address] [place] [address], [address], 11/19/2020 14:17:24 11/20/19 21 11/19/2020 gener al healt h panel RDW 12.4 % 11.0-1 5.0 normal Not Available [facility] [address] [place] [address], [address], 11/19/2020 14:17:24 11/20/19 21 11/19/2020 gener al healt h panel MPV 7.9 fL 6.2-10 .5 normal Not Available [facility] [address] [place] [address], [address], 11/19/2020 14:17:24 11/20/19 21 11/19/2020 gener al healt h panel platelet count 275 K/uL 130-40 0 normal Not Available [facility] [address] [place] [address], [address], 11/19/2020 14:17:24 11/20/19 21 11/19/2020 gener al healt h panel neutrophil,a bsolute 3.2 K/uL 1.6-8. 4 normal Not Available [facility] [address] [place] [address], [address], 11/19/2020 14:17:24 11/20/19 21 11/19/2020 gener al healt h panel lymphocyte,a bsolute 2.0 K/uL 0.4-5. 1 normal Not Available [facility] [address] [place] [address], [address], 11/19/2020 14:17:24 11/20/19 21 11/19/2020 gener al healt h panel monocyte,abs olute 0.4 K/uL 0.0-1. 2 normal Not Available [facility] [address] [place] [address], [address], 11/19/2020 14:17:24 11/20/19 21 11/19/2020 gener al healt h panel eosinophil,a bsolute 0.0 K/uL 0.0-0. 8 normal Not Available [facility] [address] [place] [address], [address], 11/19/2020 14:17:24 11/20/19 21 11/19/2020 gener al healt h panel basophil,abs olute 0.0 K/uL 0.0-0. 3 normal Not Available [facility] [address] [place] [address], [address], 11/19/2020 14:17:24 11/20/19 21 11/19/2020 gener al healt h panel % neutrophils 57.1 % 42.0-7 8.0 normal Not Available [facility] [address] [place] [address], [address], 11/19/2020 14:17:24 11/20/19 21 11/19/2020 gener al healt h panel % lymphocytes 35.3 % 11.0-4 7.0 normal Not Available [facility] [address] [place] [address], [address], 11/19/2020 14:17:24 11/20/19 21 11/19/2020 gener al healt h panel % monocytes 6.9 % 0.0-11 .0 normal Not Available [facility] [address] [place] [address], [address], 11/19/2020 14:17:24 11/20/19 21 11/19/2020 gener al healt h panel % eosinophils 0.6 % 0.0-7. 0 normal Not Available [facility] [address] [place] [address], [address], 11/19/2020 14:17:24 11/20/19 21 11/19/2020 gener al healt h panel % basophils 0.1 % 0.0-3. 0 normal Not Available [facility] [address] [place] [address], [address], 11/19/2020 14:17:24 11/20/19 21 11/19/2020 gener al healt h panel nucleated red cells 0.1 % 0.0-0. 9 normal Not Available [facility] [address] [place] [address], [address], 11/19/2020 14:17:24 11/20/19 21 11/19/2020 gener al healt h panel nucleated RBCs, absolute 0.01 K/uL not estab. normal Not Available [facility] [address] [place] [address], [address], 11/19/2020 14:17:24 11/20/19 21 11/19/2020 gener al healt h panel TSH 2.060 uIU/m L 0.270- 4.200 normal Not Available [facility] [address] [place] [address], [address], 11/19/2020 14:17:24 11/20/19 21 11/19/2020 prola ctin, serum prolactin 8.17 NG/mL 4.79-2 3.30 normal Refer ence range is based on non-p regna nt women . Not Available [facility] [address] [place] [address], [address], 11/19/2020 14:05:27 11/20/19 21 11/22/2020 CHLAM YDIA/ GC, RNA chlamydia trachomatis NOT DETECT ED not detect ed normal Not Available [facility] [address] [place] [address], [address], 11/22/2020 07:26:18 11/20/19 21 11/22/2020 CHLAM YDIA/ GC, RNA N. gonorrhoeae NOT DETECT ED not detect ed normal Not Available [facility] [address] [place] [address], [address], 11/22/2020 07:26:18 11/20/19 21 11/22/2020 CHLAM YDIA/ [...] ation s and is used for clini rufina purpo ses. For addit ional infor nura mancia e refer to https ://ed ucati on.qu estdi agnTapToLearns. com/f aq/FA Q154 (This link is being provi ded for infor deana n/ educa anahi l purpo ses only. ) TEST PERFO RMED AT: [facility] - [address] [address] JEFFERY Schulte MD Not Available [address], [address], 11/22/2020 07:26:18 11/20/19 21 11/22/2020 TRICH OMONA S VAGIN ALBERTO, PAP trichomonas vaginalis NOT DETECT ED not detect ed normal The maty tical perfo rmanc e franklin cteri stics of this assay have been deter mined by [facility]. The modif icati ons have not been clear ed or appro chandler by the FDA. This assay has been valid ated pursu ant to the CLIA regul ation s and is used for clini rufina purpo ses. For addit ional infor nura mancia e refer to http: //benton frazier stdia gnost ics.c om/ faq/T abel wilson (This link is being provi ded for infor matio n/ educa anahi l purpo ses only. ) TEST PERFO RMED AT: [facility] [address] [address] JEFFERY Schulte MD Not Available [facility] [address] [place], [address], 11/22/2020 14:06:21 11/20/19 21 11/23/2020 HPV, HIGH [...] ation s and is used for clini rufina purpo ses. For addit ional infor nura mancia e refer to http: //[facility] ezra bledsoe.que stdia gnost ics.c om/fa q/FAQ 129v1 (This link if provi ded for infor deana bledsoe/ educjavon christian l purpo ses only. ) TEST PERFO RMED AT: [facility] [address] [address] JEFFERY Schulte MD Not Available [facility] [place], [address], 11/24/2020 08:22:38 11/20/19 21 11/19/2020 PAP SMEAR Pap smear SEE BELOW Depar tment of Patho logy GYNEC OLOGI RUFINA CYTOL OGY REPOR T NAME: SHA MEJIA ANY PATHO LOGY NO.: [id number] Copy to: SOURC E OF SPECI MEN: CERVI RUFINA/E NDOCE RVICA L-THI N PREP RELEV ANT [...] Nikia d Out Date: 11/24 11:31 Cervi rufina/v agina l cytol ogy is a scree [...] to shivam t in prima ry cervi rufina cance r scree chepe of ThinP rep(R ) Pap test slide s. Page 1 of 1 Not Available [facility] [address] [place] [address], [address], 11/24/2020 11:32:48 12/04/19 21 12/07/2020 UROGE NITAL MYCOP LASMA & UREAP LASMA PANEL mycoplasma hominis by real-time PCR NEGATI VE normal Swab- 1 Vag/C erv Not Available [facility] [address] [place] [address], [address], 12/08/2020 23:34:16 12/04/19 21 12/07/2020 UROGE NITAL MYCOP LASMA & UREAP LASMA PANEL ureaplasma urealyticum by real-time PCR (reflex to fluoroquinol one resistance) NEGATI VE normal Swab- 1 Vag/C erv Not Available [facility] [address] [place] [address], [address], 12/08/2020 23:34:16 12/04/19 21 12/08/2020 UROGE NITAL MYCOP LASMA & UREAP LASMA PANEL mycoplasma genitalium by real-time PCR (reflex to azithromycin and fluoroquinol one resistance) NEGATI VE normal Swab- 1 Vag/C erv Not Available [facility] [address] [place] [address], [address], 12/08/2020 23:34:16 12/04/19 21 12/07/2020 AEROB IC VAGIN ITIS PANEL (GBS S. AUREU S E.COL I E. FAECA LIS group B streptococcu s (gbs) by real-time PCR NEGATI VE normal Swab- 1 Vag/C erv Not Available [facility] [address] [place] [address], [address], 12/08/2020 23:34:17 12/04/19 21 12/07/2020 AEROB IC VAGIN ITIS PANEL (GBS S. AUREU S E.COL I E. FAECA LIS lactobacillu s (bv & av panel) by real time PCR SEE COMMEN T normal Swab- 1 Vag/C erv L.cri spatu s: Negat surendra L.valentina senii : Posit surendra L.gas seri : Negat surendra L.ine rs : Posit surendra. Not Available [facility] [address] [place] [address], [address], 12/08/2020 23:34:17 12/04/19 21 12/07/2020 AEROB IC VAGIN ITIS PANEL (GBS S. AUREU S E.COL I E. FAECA LIS staphylococc us aureus by real time PCR NEGATI VE normal Swab- 1 Vag/C erv Not Available [facility] [address] [place] [address], [address], 12/08/2020 23:34:17 12/04/19 21 12/08/2020 AEROB IC VAGIN ITIS PANEL (GBS S. AUREU S E.COL I E. FAECA LIS escherichia coli by real-time PCR NEGATI VE normal Swab- 1 Vag/C erv Not Available [facility] [address] [place] [address], [address], 12/08/2020 23:34:17 12/04/19 21 12/08/2020 AEROB IC VAGIN ITIS PANEL (GBS S. AUREU S E.COL I E. FAECA LIS enterococcus faecalis by real-time PCR NEGATI VE normal Swab- 1 Vag/C erv Not Available [facility] ([facility]) [address] [facility], [place], [address], 12/08/2020 23:34:17 11/25/19 21 11/24/2020 US, neck, soft tissu e Anai donohue [address] [place] [address] Bennett guerra Name: ABNER guerra : [birth year] Bennett guerra Orderi ng Provid er: JULIOCESAR Woo [facility] EXAM DATE: 2020 EXAM: US ECHO THYROI [...] Cricket Nesbitt MD on 021 12:06 PM [facility] [address] , [place], [address], 11/25/2020 10:16:35 Result Notes None recorded. Problems Name Problem SNOMED Code Status Onset Date Resolution Date Notes Provider Name and Address Organization Details Recorded Time SNOMED CT Concept Active 016 From Automated Load;Provi tristen: Kevan Gómez tatus: Active Not Available [facility] 6 08:10:54 Problem Notes None recorded. Procedures Surgical History Date Name Laterality Status Provider Name and Address Organization Details Recorded Time 11/20/19 21 Pap Smear collection completed LAURENCE GÓMEZ, ROUTER SETTER [address] [place], [address], [facility] 11/19/2020 09:23:30 11/20/19 21 Date of Last Pap Smear completed Nitza Jim [facility] 11/24/2021 08:12:34 02/18/20 17 Pap Smear collection completed JOSLYN PEREIRA MD [address] [place], [address], [facility] 02/19/2017 13:49:41 12/22/19 17 LAPAROSCOPY, DIAGNOSTIC (SURG) completed JOSLYN PEREIRA MD [address] [place], [address], [facility] 12/28/2016 23:26:53 12/22/19 17 LAPAROSCOPY, DIAGNOSTIC (SURG) completed Not Available [facility] 01/04/2017 10:29:49 Breast Surgery completed [facility] 11/01/2016 14:03:44 Tubal Ligation completed Glenis Garcia [facility] 11/01/2016 14:04:03 Removal of tonsils completed Glenis Garcia [facility] 11/01/2016 14:04:11 Caesarean Section completed Annie Cooper [facility] 01/03/2017 08:21:18 Imaging Results None recorded. Procedure Notes None recorded. Medical Equipment None Reported. Allergies Allergen ID Allergen Name Allergen Category Reaction Reaction Severity Criticality Documentation Date Start Date Code Code System Note Provider Name and Address Organization Details Recorded Time 648745 Ultracet medicatio n Not available Not available Not available 04/23/20162007 71307 2 RxNorm Comme nt: Creat ed By: King Kristen rosario Date: 2007 5:00: 43 PM; Not Available [facility] 6 03:55:33 [id number] Macrobid medicatio n Not available Not available Not available 04/23/20162007 60319 1 RxNorm Comme nt: Creat ed By: King Kristen orellanaCre ated Date: 2007 5:01: 00 PM; Not Available [facility] 6 08:50:02 Medications Name Sig Start [...] Updated DateTime 07/01/2017 167.64 cm 25.2 kg/m2 34999.41 g 98/52 mm[Hg] Nitza Guzmánkaykay [facility] 07/01/2017 08:46:29 Date Recorded Body height Body mass index (BMI) Body weight Systolic And Diastolic Provider Name and Address Organization Details Last Updated DateTime 11/19/2020 167.64 cm 24.7 kg/m2 59297.63 g 112/72 mm[Hg] Glenis Garcia [facility] 11/19/2020 08:52:41 Date Recorded Body height Body mass index (BMI) Body weight Systolic And Diastolic Provider Name and Address Organization Details Last Updated DateTime 11/24/2021 167.64 cm 23.9 kg/m2 62586.67 g 102/64 mm[Hg] Nitza Jim [facility] 11/24/2021 08:11:54 Date Recorded Body height Body mass index (BMI) Body weight Systolic And Diastolic Provider Name and Address Organization Details Last Updated DateTime 12/03/2020 167.64 cm 24.1 kg/m2 72447.06 g 100/68 mm[Hg] Alexa Ring [facility] 12/03/2020 08:23:54 Date Recorded Body height Body mass index (BMI) Body weight Systolic And Diastolic Provider Name and Address Organization Details Last Updated DateTime 02/17/2017 167.64 cm 23.8 kg/m2 69250.52 g 100/68 mm[Hg] Gladys Watson [facility] 02/17/2017 13:45:47 Social History Question Answer Notes LastModified by [employer] Details LastModified Time Tobacco Smoking Status Former [facility] Jun [facility]2017 08:21:02 What Is Your Level Of Caffeine Consumption? Moderate Information not available 07/01/2017 How Much Tobacco Do You Chew? None Information not available 11/19/2020 What Was The Date Of Your Most Recent Tobacco Screening? 11/24/2021 Information not available 11/24/2021 Has Tobacco Cessation Counseling Been Provided? Yes Information not available 11/24/2021 On What Date Was Tobacco Cessation Counseling Provided? 11/24/2021 Information not available 11/24/2021 Sex: Unknown Functional Status Question Answer Note LastModified by [employer] Details LastModified Time Do you or have you ever used any other forms of tobacco or nicotine? No Information not available 11/24/2021 What is your level of alcohol consumption? None Information not available 07/01/2017 Do you or have you ever used smokeless tobacco? Never used smokeless tobacco [email or web address] Information not available 11/19/2020 Do you or have you ever used e-cigarettes or vape? Never used electronic cigarettes [email or web address] Information not available 11/19/2020 Mental Status None recorded. Family History Relationship Description Onset Age of this Age Resolved Age Notes LastModified by Organization Details LastModified Time Paternal Aunt Malignant neoplastic disease [email or web address] Not available 2016 14:02:43 Paternal Aunt Malignant neoplasm of cervix uteri [email or web address] Not available 08:55:41 Unspecified Relation Malignant neoplasm of breast matern al great grandm other 60-70s [email or web address] Not available 11/24/2021 08:32:39 Unspecified Relation Asthma [email or web address] Not available 7 13:48:10 Maternal Grandmother Cerebrovascu lar accident [email or web address] Not available 09/2016 14:03:22 Mother Disorder of thyroid gland [email or web address] Not available 2020 08:55:50 Medical History Condition [...] Influenza, split virus, quadrivalent, preservative 0 completed Glenis Garcia [facility] 11/19/2020 08:54:26 Past Encounters Encounter ID Performer Location Encounter Start Date Encounter Closed Date Diagnosis/Indication Diagnosis SNOMED-CT Code Diagnosis ICD10 Code Diagnosis IMO Codes Diagnosis Note [id number] [facility] [address] 08/30/2016 22:43:12 08/30/2016 22:43:12 [id number] GUY BARTLETT [facility]N [facility] [address] [place] [address] 11/01/2016 13:40:52 11/01/2016 14:53:32 Pain in pelvis 54291645 R10.2 lower abd, back pain. r/o UTI Lower abdominal pain 545 18077 R10.30 lower abd and back pain. Constipation 10801502 K5 9.00 Enc. inc fluids Vaginitis 59544163 N76.0 Z11.3 painful intercours e Dyspareunia 63113849 N94 .11 pain with immediate penetratio n and then the pain subsides as intercours e procedes [id number] MD [address] [place] [address] 01/03/2017 08:09:05 01/03/2017 08:42:13 Postoperative visit 568733354 Z09 Pain in pelvis 58948979 R10.2 s/p dx laparoscop y Endometrio sis of pelvis 08085192 N80.3 s/p dx laparoscop y Chronic constipation 236 652971 K59.01 on trulance - will follow symptoms for resolution Endometrio sis of uterus 65817297 N80.0 [id number] MD [address] [place] [address] 02/17/2017 13:27:11 02/17/2017 14:41:56 Routine gynecologic examination done 8187162881 9101 Z01.419 Infection screening 2437 38038 Z11.3 Gynecologi c examination 14683901 Z01.419 Endometrio sis of uterus 93414644 N80.0 Constipation 60729096 K5 9.00 samples of taytulla provided and script sent in Dysmenorrhea 706400471 N 94.6 [id number] MD [address] [place] [address] 07/01/2017 08:29:26 07/01/2017 09:36:37 Pain in pelvis 89952279 R10.2 s/p dx laparoscop y- overall improved- discussed pain with ovulation- /mid cycle pain- discussed OCP, nexplanon and depot provera; will follow menstrual calendar and pain calendar Chronic constipation 236 226482 K59.01 on trulance withimprov ment in symptoms but cost prohibitiv e; trial of linzess 72 mcg daily- script sent in Irritable bowel syndrome characterized by constipation 343218689 K58.1 Plan trial of linzess [id number] [address] [place] [address] 11/19/2020 08:45:35 11/19/2020 09:40:52 Gynecological examination abnormal 5519787339 51974 Z01.411 On examina tion - VE - uterine tenderness 116715790 R39.89 Rocephin 500mg + oral meds; FU 2 wks Acute cervicitis 4564787 0 N72 will add GCC testing to the pap Screening for malignant neoplasm of cervix 019441457 Z12.4 Multinodular goiter 2375 39256 E04.2 Discharge from nipple 54 183664 N64.52 [id number] LELIA MAST [address] [place] [address] 12/03/2020 08:14:51 12/03/2020 09:37:32 Follow-up visit 254506702 Z09 PID resolved. R/O persistent MPC. (OneSwab taken/ pending) [id number] DO DARINEL DOE [address] [place] [address] 11/24/2021 08:03:44 11/24/2021 08:51:01 Gynecologic examination 55446903 Z01.419 Pap: 1repeat pap due 2025mammog [place] at age 42 unless otherwise indicatedr epeat mammogram pending firstbreas t/pelvic exam normal except where otherwise documented f/u 1 year for annual or sooner if neededcont inue care/labs with PCP Screening for malignant neoplasm of cervix 350046367 Z12.4 2020 rpt 2025 Acne 28421750 L70.9 declines referral to derm and doesnt want COCs currently as wants tubal reversed History of tubal ligation 548901335 Z98.51 desires reversal, referral placed Health Concerns Section Related Observation LastModified by Organization Detai ls LastModified Time None Recorded Concern Status LastModified by Organization Details LastModified Time None Recorded Advance Directives Directive None Recorded Payers Encounter Date Sequence Insurance Name Policy Number Policy Gomez Covered Member ID Gomez Member ID Guarantor Name 02/17/2017 1 [employer] - [employer] ROBERT (MEDICAID REPLACEMENT - HMO) [place] Ophelia Mejia [id number] Ophelia Mejia 07/01/2017 1 [employer] (POS) [id number] Ophelia Calle [id number] Ophelia R Mejia 11/19/2020 1 [employer] (POS) [id number] Ophelia Calle [id number] Ophelia R Mejia 12/03/2020 1 [employer] (POS) [id number] Ophelia Calle [id number] Ophelia R Mejia 11/24/2021 1 [employer] (POS) [id number] Ophelia Calle [id number] Ophelia R Mejia Notes Date Note Type Note Provider Name and Address Organization Details Recorded Time 7 text/html Annual GYNReported by PatientGenitourinary symptomsFor menstrual cycle, patient reportsnormal menses. For urinary symptoms, patient reportsno hematuriaandno incontinence. For vulva, patient reportsno genital lesion. For vagina, patient reportsnormal vaginal discharge.Breast symptomsFor breast, patient reportsno breast pain,no breast lump, andno nipple discharge.ContraceptionFo r current contraception, patient reportssatisfied with current contraception,monogamous relationship, andtubal ligation.Endocrine symptomsFor sexual complaints, patient reportsno sexual complaints,no pain during intercourse, andnormal libido. For menopausal symptoms, patient reportsno menopausal symptomsandnormal vaginal lubrication.Psychological symptomsFor psychological symptoms, patient reportsno depression,no anxiety, andno pmdd.Preventative measuresFor preventive measures, patient reportsencourage self breast examination,encourage regular exercise,encourage no tobacco use,encourage regular mammograms starting age 40, andfollowed with q3 year pap smear and high risk hpv typing. 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 34yo, , with BTL for BC. [...] longstanding hx HAs. Will ck prolactin. LAURENCE GMÓEZ, ROUTER SETTER [address] [place], [address], [facility] 11/19/2020 11:14:21 1 text/html ROS as noted in the HPI Here for FU of MPC, PID. She got Rocephin inj + oral meds. Feels asymptomatic now. Had SA 1x. No dyspareunia or postcoital bldg. The pap, HPV, and STD screening were normal. LAURENCE GÓMEZ, ROUTER SETTER [address] [place], [address], [facility] 12/03/2020 09:36:06 2 text/html ROS as noted in the HPI annual HPI: patient is a 35 year [...] feels safe at home, wears seatbelt KAYKAY ROSALES, DO [address] [place], [address], [facility] 11/24/2021 09:14:40 OBGyn Episode No OBEpisode recorded.
--- NOTE | 2025-04-10 12:55 | HMH.EDGENADL ---
Discharge Plan Disposition Patient Disposition: Home, Self-Care Condition: Good Prescriptions Prescriptions: New methocarbamol 750 mg tablet 750 mg PO TID PRN (Reason: Muscle Spasm) Qty: 30 0RF No Action metformin 500 mg tablet extended release 24 hr 500 mg PO BID Patient Comments: pt states she this was prescribed but she does not take daily Referrals Follow up/Referrals: Kingston Montiel [Primary Care Provider, Medical] - See instructions Activity Restrictions/Add. Instructions Additional Instructions/Restrictions: Stay well-hydrated. Continue your multivitamin at home. May take Tylenol and ibuprofen at home as needed for pain. I have sent muscle relaxers as well, be careful when taking these and do not drive or drink alcohol with them. Return to ED if you develop worsening pain, numbness, weakness, tingling. Please follow up with your primary care provider in 2-3 days. Please return to ED if your symptoms worsen, change in location, change in severity, new symptoms develop or if you become concerned for your health. Clinical Impressions Clinical Impression: Pain of left calf, Arm pain, left, Episodic lightheadedness Print Language Print Language: German Discharge ED Provider: Darci Meek General Adult HPI General Chief complaint: PAIN Stated complaint: lower Leg pain-left Time Seen by Provider: 04/10/25 12:53 Mode of Arrival: Family Vehicle Source of Information: Patient Description of Symptoms (Recalled from ER Triage Doc. by RN): Pt c/o lateral LLE pain that began suddenly yesterday while at work. States she was sitting at her desk and noted her LLE didn't feel quite right . She removed her shoe and attempted to stretch and massage her leg but it did not help. Denies any trouble bearing weight on LLE. She does reports tenderness to left lateral knee to mid calf. Reports occasional feeling cold to this limb. Denies any recental falls, trauma, or injury. Denies any revcent long travel. Denies any clot disorder. She does state she is supposed to take Metformin and topical Testosterone d/t insulin resistance disorder & PCOS but does not take it routinely. She reports having IUD (Mirena) in place for control. History of Present Illness HPI narrative: Patient is a 39-year-old female with no significant past medical history who presents today with left lower extremity cramping. She reports that it began this morning upon waking up. She did not think much of it, it worsened as she was sitting at work, primarily in her left calf feeling like a cramping pressure sensation. She has taken no medicines at home for the pain. She denies any overt numbness or tingling or weakness. Denies any falls or trauma. She denies any headache or vision changes. She reports some slight pain as well in her left humerus area, but again denies any trauma there. She is concerned for a blood clot. She has never had 1 before. She is on Mirena IUD, but no other estrogen supplementation or control. Did travel a long distance, but it has been several months. She denies any overt chest pain or shortness of breath, but does report some intermittent lightheadedness that resolved within a few seconds. Denies any fevers vomiting diarrhea or other sick like symptoms like cough congestion runny nose. Related Data Home Medications ?Medication ?Instructions ?Recorded ?Confirmed metformin 500 mg tablet,extended 500 mg PO BID 04/10/25 04/10/25 release 24 hr Previous Rx's ?Medication ?Instructions ?Recorded methocarbamol 750 mg tablet 750 mg PO TID PRN Muscle Spasm #30 04/10/25 tabs Allergies Allergy/AdvReac Type Severity Reaction Status Date / Time No Known Allergies Allergy Verified 12/20/24 13:08 [facility] Disclaimer: The information contained in this section may have been updated after the patient was seen, as this information can be updated by other users. Surgical History History of tubal ligation History of tonsillectomy History of section Social History Smoking Status: Never smoker alcohol intake: never current occupational status: other Travel in the last 8 weeks?: None Have you lived/traveled outside [place] in past 30 days?: No Contact w/someone who lives/traveled outside [place] past 30 days?: No Exposure to someone with infectious disease in past 14 days?: No Do you have a fever (greater than 100.4 F or 38 C)?: No Have you tested positive for COVID-19?: No Exposed to someone with COVID-19 in past 14 days?: No Do you have a sore throat?: No Do you have a cough?: No Do you have any weakness?: No Do you have any diarrhea?: No Are you experiencing any unusual bleeding?: No Do you have any muscle aches/pain?: No Do you have any abdominal pain?: No Are you experiencing loss of taste or smell?: No Other Medical History Have you received the Pneumonia Vaccine: No ROS Obtained: Yes All systems reviewed & no additional complaints except as documented Physical Exam General General appearance: alert and in no apparent distress Head Head exam: atraumatic and normocephalic Eye Eye exam: Present PERRL and EOMI ENT ENT exam: Present normal oropharynx Neck Neck exam: Present full ROM and trachea midline Chest Chest inspection: Present symmetric chest wall rise Respiratory Respiratory exam: Present normal lung sounds bilaterally; Absent stridor Cardiovascular Cardiovascular exam: Present regular rate and normal rhythm Abdominal Exam Abdominal exam: Present soft; Absent distention or tenderness Extremities Exam Extremities exam: Present full ROM, tenderness (Tender to palpation over the left calf with positive Homans' sign), normal capillary refill, calf tenderness and other (Good DP and PT pulse bilaterally. Additionally, on the left and the left upper extremity, full range of motion, mild tenderness over the humerus. Good radial and ulnar pulse, no skin color changes. Neurovascular intact.); Absent edema or joint swelling Neurological Exam Neurological exam: Present alert and oriented X3 Psychiatric Psychiatric exam: Present normal mood Skin Skin exam: Present warm and dry Medical Decision Making Medical Records Screening: Per USPSTF and CDC recommendations, given the prevalence of disease in our region, it is our hospital?s policy to screen for HIV and viral Hepatitis for all patients aged 18 and over and those with ongoing risk factors. Jairon Inquiry Pt receiving controlled substance: No Vital Signs: 04/10/25 12:03 04/10/25 12:51 04/10/25 13:00 Temperature Source Oral Pulse Rate 82 84 Pulse Rate [Right] 89 Respiratory Rate 16 Blood Pressure 112/72 115/69 Blood Pressure [Right Arm] 150/79 H Blood Pressure Mean [Right Arm] 102 Blood Pressure Source [Right Arm] Automatic Cuff 02 Sat by Pulse Oximetry 99 100 99 Oxygen Delivery Method Room Air 04/10/25 13:15 04/10/25 13:30 04/10/25 13:45 Temperature Source Pulse Rate 83 78 83 Pulse Rate [Right] Respiratory Rate Blood Pressure 123/82 119/71 109/67 L Blood Pressure [Right Arm] Blood Pressure Mean [Right Arm] Blood Pressure Source [Right Arm] 02 Sat by Pulse Oximetry 99 100 100 Oxygen Delivery Method 04/10/25 14:00 04/10/25 14:15 04/10/25 15:11 Temperature Source Pulse Rate 80 71 80 Pulse Rate [Right] Respiratory Rate Blood Pressure 105/63 L 101/64 L 108/54 L Blood Pressure [Right Arm] Blood Pressure Mean [Right Arm] Blood Pressure Source [Right Arm] 02 Sat by Pulse Oximetry 100 100 100 Oxygen Delivery Method 04/10/25 15:15 04/10/25 15:30 04/10/25 15:45 Temperature Source Pulse Rate 73 76 75 Pulse Rate [Right] Respiratory Rate Blood Pressure 122/63 102/61 L 112/69 Blood Pressure [Right Arm] Blood Pressure Mean [Right Arm] Blood Pressure Source [Right Arm] 02 Sat by Pulse Oximetry 100 100 99 Oxygen Delivery Method Lab Data Lab Results 04/10/25 13:31: WBC 4.6 L, RBC 4.41, Hgb 14.1, Hct 40.9, MCV 92.7, MCH 32.0 H, MCHC 34.5, RDW 11.8, Plt Count 227, MPV 9.8, Neut % (Auto) 51.5, Lymph % (Auto) 37.4, Coal % (Auto) 10.2 H, Eos % (Auto) 0.9, Baso % (Auto) 0.0 L, Neut # (Auto) 2.4, Lymph # (Auto) 1.7, Coal # (Auto) 0.5, Eos # (Auto) 0.0, Baso # (Auto) 0.0, D-Dimer 0.69 H, Sodium 137, Potassium 4.1, Chloride 102, Carbon Dioxide 28, Anion Gap 11.1, BUN 7, Creatinine 0.60, Estimated Creat Clear 147, Estimated GFR 112, Est GFR ( Amer) 136, Glucose 94, Calcium 9.5, Magnesium 2.0, Total Bilirubin 0.7, AST 25, ALT 15, Alkaline Phosphatase 62, Troponin I < 0.01, Total Protein 8.0, Albumin 4.6, Globulin 3.4 H, Albumin/Globulin Ratio 1.4, Serum HCG, Qual Negative 04/10/25 13:31: Serum HCG, Qual Negative, HCV Ab SUMEET w/Rflx PCR Qn Negative, HIV Ag/Ab Combo Qual Negative 04/10/25 13:31 04/10/25 13:31 Orders (Tests/Meds): ED MEDICATIONS Generic Name Dose Route Start Last Admin Trade Name Salome PRN Reason Stop Dose Admin Sodium Chloride 10 ml 04/10/25 13:17 04/10/25 15:07 Sodium Chloride 0.9% 10ml Flush Syringe IV 05/10/25 13:16 10 ml NEEDED PRN Administration Maintain IV Site Discontinued Medications Generic Name Dose Route Start Last Admin Trade Name Salome PRN Reason Stop Dose Admin Acetaminophen 1,000 mg 04/10/25 13:16 04/10/25 13:35 Acetaminophen 500mg Tab PO 04/10/25 13:17 1,000 mg ONCE ONE Administration Lactated Ringer's 1,000 mls @ 999 mls/hr 04/10/25 13:16 04/10/25 15:14 Lactated Ringer's 1000 Ml Bag IV 04/10/25 14:16 Infused .Q1H1M ONE Infusion Iopamidol 70 ml 04/10/25 15:06 04/10/25 15:07 Iopamidol-370 (76%);100ml Bottle IV 04/10/25 15:07 70 ml ONCE ONE Administration Ketorolac Tromethamine 15 mg 04/10/25 13:16 04/10/25 13:35 Ketorolac 15mg/Ml Vial IV 04/10/25 13:17 15 mg ONCE ONE Administration Sodium Chloride 10 ml 04/10/25 15:06 04/10/25 15:07 0.9 % Sodium Chloride 50 Ml Vial IV 04/10/25 15:07 10 ml ONCE ONE Administration ORDERS Category Date Time Status CT angio chest PE protocol Stat Cat Scan 04/10/25 14:13 Taken XR chest portable Stat Exams 04/10/25 13:16 Taken CBC w/Auto Diff [Complete Blood Count Auto Diff] Stat Lab 04/10/25 13:31 Completed CMP [Comprehensive Metabolic Panel] Stat Lab 04/10/25 13:31 Completed D-Dimer Stat Lab 04/10/25 13:31 Completed HCG Qualitative, Serum Stat Lab 04/10/25 13:31 Completed HCG Qualitative, Serum Stat Lab 04/10/25 13:31 Completed HIV Combo Stat Lab 04/10/25 13:31 Completed Hepatitis C Ab Qual. W/ RFX Stat Lab 04/10/25 13:31 Completed MAG [Magnesium] Stat Lab 04/10/25 13:31 Completed Trop I [Troponin I] Stat Lab 04/10/25 13:31 Completed Troponin I Q3H Lab 04/10/25 16:30 Ordered Troponin I Q3H Lab 04/10/25 19:30 Ordered CA venous doppler LE LT Stat Y 04/10/25 14:13 Completed CA venous doppler UE LT Stat Y 04/10/25 14:13 Completed ECG Data Tracing #1: Normal sinus rhythm with no obvious acute ischemic ST changes and intervals are within normal limits Medical Decision Narrative: Patient is a 39-year-old female with no medical history presenting today with left calf pain and some intermittent left arm pain and episodic lightheadedness. On arrival, she is afebrile hemodynamically stable no acute distress on exam is warm and well-perfused with full pulses and brisk capillary refill. She is neurovascular intact in all extremities and cranial nerves II through XII are intact and pupils are equal round and reactive, she is tender somewhat over her left calf with a positive Angel sign, felt reasonable to screen low risk for D-dimer given that she has no edema or other objective findings other than calf tenderness. Very low risk for ACS or PE, however given the arm pain, to rule out atypical presentation of ACS or PE, will screen with troponins and EKG. EKG nonischemic. D-dimer positive, but CT PE is without a pulmonary embolism on my independent interpretation and the venous duplex ultrasounds of left upper and left lower extremities were negative for blood clot. On reassessment, reports some improvement in her symptoms. She remains neurovascular intact, I suspect muscle strain versus sprain. Given that she has remained neurovascular intact, extremely low suspicion for central process or CVA. Low suspicion for demyelinating process given acute onset and does not have a history of these, additionally no neurodeficits, only objective calf tenderness. Has good follow-up with PCP. Strict return precautions are discussed, questions answered, patient amenable to plan and discharge Critical Care Critical Care Time Critical Care Time: No
--- NOTE | 2025-04-10 13:16 | XR_ITS ---
FINAL REPORT CLINICAL HISTORY: chest and lle pain FINDINGS: No acute pulmonary opacity is present. There is no evidence of effusion or pneumothorax. Mediastinum is unremarkable. Heart size is normal. IMPRESSION: No acute abnormality. Reviewed, Interpreted and Dictated by Maico Floyd MD Transcribed by Yin Tan Authenticated and [facility]
--- NOTE | 2025-04-10 13:24 | ECG_ITS ---
APPROVED REPORT Exam: Resting ECG HR:76 bpm ECG Measurements Heart Rate 76 AXES AL 151 P 68 QRSd 83 QRS 48 QT 346 T 41 QTc 377 Conclusion SINUS RHYTHM NORMAL ECG UNCONFIRMED REPORT Electronically signed by : Darci Meek, 04/10/2025 16:52:21
[2025-04-10] MEDS: LACTATED RINGERS 1000ML 1,000 ML 999 ML IV (13:34)
[2025-04-10] MEDS: KETOROLAC 15MG/ML VIAL 15 MG IV (13:35)
[2025-04-10] MEDS: ACETAMINOPHEN 500MG TAB 1000 MG PO (13:35)
[2025-04-10 13:51] LABS: Hematocrit 40.9 % (37.0-47.0); Hemoglobin 14.1 g/dL (12.2-16.2); Immature Granulocytes % 0 %; Mean Corpuscular HGB Conc 34.5 g/dL (31.8-35.4); Mean Corpuscular Hemoglobin 32.0 pg (27.0-31.2); Mean Corpuscular Volume 92.7 fl (81-99); Nucleated Red Blood Cells % 0 %; Platelet Count 227 K/mm3 (142-424); Red Blood Count 4.41 M/mm3 (4.20-5.40); Red Cell Distribution Width-SD 39.8 fL; White Blood Count 4.6 K/mm3 (4.8-10.8)
[2025-04-10 13:58] LABS: Alanine Aminotransferase 15 U/L (12-78); Albumin Level 4.6 g/dl (3.5-5.0); Albumin/Globulin Ratio 1.4 (1.1-1.8); Alkaline Phosphatase 62 U/L (38-126); Anion Gap 11.1 mEq/L (5-15); Aspartate Amino Transferase 25 U/L (14-36); Bilirubin,Total 0.7 mg/dl (0.2-1.3); Blood Urea Nitrogen 7 mg/dl (7-17); Calcium 9.5 mg/dl (8.4-10.2); Carbon Dioxide 28 mmol/L (22.0-30.0); Chloride 102 mmol/L (98-107); Creatinine Clearance Estimated 147 mL/min (50-200); Creatinine,Serum 0.60 mg/dl (0.52-1.04); Estimated Glomerular Filt Rate 112 ml/min (>60); GFR (African American) 136 ML/MIN (>60); Globulin 3.4 g/dL (1.3-3.2); Glucose 94 mg/dl (74-100); Magnesium 2.0 mg/dl (1.6-2.3); Potassium 4.1 mmoL/L (3.5-5.1); Sodium 137 mmol/L (136-145); Total Protein,Serum 8.0 g/dl (6.3-8.2)
[2025-04-10 14:02] LABS: HCG Qualitative, Serum Negative (Negative)
[2025-04-10 14:03] LABS: D-Dimer 0.69 ug/mL (0.0-0.5)
--- NOTE | 2025-04-10 14:13 | CT_ITS ---
FINAL REPORT TECHNIQUE: Thin section axial CT with contrast with multiplanar reconstruction This study was performed with techniques to keep radiation doses as low as reasonably achievable, (ALARA). Individualized dose reduction techniques using automated exposure control or adjustment of mA and/or kV according to the patient''s size were employed. CLINICAL HISTORY: cp, positive dimer COMPARISON: None FINDINGS: CTA CHEST: Pulmonary vessels enhance in normal fashion without evidence of embolism. Thoracic aorta shows no dissection or aneurysm. No pulmonary mass or infiltrate is present. Calcified granulomas are present consistent with prior granulomatous disease. There is no significant pleural effusion. There is no significant pericardial effusion. No hilar adenopathy is present. Calcified mediastinal nodes are present, consistent with prior granulomatous disease. IMPRESSION: 1. No evidence of pulmonary embolism Reviewed, Interpreted and Dictated by Maico Floyd MD Transcribed by Daniella Gavin Authenticated and [facility]
--- NOTE | 2025-04-10 14:13 | CA_ITS ---
FINAL REPORT TECHNIQUE: Graded compression, spectral analysis and ultrasound images of the venous system of the upper extremity were obtained. CLINICAL HISTORY: PAIN LT UPPER ARM,NKI FINDINGS: The jugular vein, subclavian vein, axillary vein, brachial vein, cephalic vein and basilic venous system are fully compressible and demonstrate no evidence of thrombosis. IMPRESSION: No evidence of thrombosis of the venous system of the left upper extremity. Reviewed, Interpreted and Dictated by Maico Floyd MD Transcribed by Yin Tan Authenticated and . [facility]
--- NOTE | 2025-04-10 14:13 | CA_ITS ---
FINAL REPORT TECHNIQUE: Compression arriaza scale and Doppler evaluation CLINICAL HISTORY: lt lateral calf pain ,nki FINDINGS: Femoral and popliteal veins show normal compressibility and flow. Visualized portion of the calf veins are patent by Doppler exam. IMPRESSION: No evidence of left lower extremity deep venous thrombosis Reviewed, Interpreted and Dictated by Maico Floyd MD Transcribed by Yin Tan Authenticated and . [facility]
[2025-04-10 14:16] LABS: Troponin I < 0.01 ng/ml (0.00-0.034)
[2025-04-10 15:00] LABS: Hepatitis C Ab Qual. W/ RFX NEGATIVE (Negative)
[2025-04-10 15:07] LABS: HCG Qualitative, Serum Negative (Negative)
[2025-04-10] MEDS: IOPAMIDOL-370 (76%);100ML BOTTLE 70 ML IV (15:07)
[2025-04-10] MEDS: SODIUM CHLORIDE 0.9% 10ML FLUSH SYRINGE 10 ML IV (15:07)
[2025-04-10] MEDS: 0.9 % SODIUM CHLORIDE 50 ML VIAL 10 ML IV (15:07)
== END 2025-04-10 16:21 | disposition home or self-care (01) ==
PROVIDERS: Emergency Provider Emergency Medicine; PCP Internal Medicine
DX: R42 Dizziness and giddiness (principal); M79.602 Pain in left arm; M79.662 Pain in left lower leg
CPT/HCPCS: 71045; 71275; 80053; 83735; 84484; 84703; 85025; 85378; 86803; 87389; 93005; 93971; 96365; 96375; 99285; J1885; J7120; Q9967